=== PATIENT | female | born 1970 | race African-American/Black ===

== ENCOUNTER 2017-02-03 20:49 | Emergency (ER) | payer SELFPAY ==
[~2017-02-03] VITALS: Ht 165.1 cm; Wt 154.5 kg
[~2017-02-03 20:49] MED LIST: NORCO1 TA1 PO
[2017-02-03 21:10] LABS: HEMATOCRIT 44.6 % (37.0-47.0); HEMOGLOBIN 13.8 g/dl (12.0-16.0); IMMATURE GRANULOCYTES 0.2 % (0.0-1.0); MEAN CELL VOLUME 98.9 fL CALC (80.0-100.0); MEAN CORPUSCULAR HGB 30.6 pG CALC (26.0-32.0); MEAN CORPUSCULAR HGB CONC 30.9 g/L CALC (32.0-36.0); NEUT# 2.82 thou/uL (2.00-7.15); RED BLOOD COUNT 4.51 mill/uL (4.20-5.60); RED CELL DISTRI WIDTH 16.7 % (11.5-15.5)
[2017-02-03 21:33] LABS: ALBUMIN 3.6 g/dL (3.2-5.0); ALKALINE PHOSPHATASE 108 u/l (38-126); AMYLASE 58 u/l (30-110); ANION GAP 16 (6-22 (CALC)); BILIRUBIN, TOTAL 0.8 mg/dL (0.0-1.4); BUN 9 mg/dL (7-17); BUN/CREATININE RATIO 11 (12-20 (CALC)); CALCIUM 9.4 mg/dL (8.4-10.2); CARBON DIOXIDE 26 mmol/l (22-30); CHLORIDE 104 mmol/l (95-108); CREATININE 0.8 mg/dL (0.5-1.0); GFR > 60 ML/MIN (>=60 (CALC)); GFR FOR AFR.AMER. > 60 ML/MIN (>=60 (CALC)); GLUCOSE 124 mg/dL (65-105); LIPASE 72 u/l (23-300); POTASSIUM 3.4 mmol/l (3.5-5.1); SGOT/AST 53 u/l (14-36); SGPT/ALT 29 u/l (9-52); SODIUM 143 mmol/l (137-146)
[2017-02-03 21:45] LABS: MYOGLOBIN 29 ng/mL (0 - 62)
[2017-02-04 00:19] VITALS: BP 122/62
[2017-02-04] MEDS ORDERED: OMEPRAZOLE10 MG PO (14:34)
[2017-02-04] MEDS ORDERED: ULTRAM50 M1 PO (16:23)
[2017-02-05] MEDS ORDERED: OCEAN NASAL0.65 % (12:14)
== END 2017-02-04 00:19 | disposition home or self-care (01) | DRG 103 ==
LOC: ED 20:49
PROVIDERS: Emergency Medicine
DX: R51 Headache (principal); R50.9 Fever, unspecified; R94.31 Abnormal electrocardiogram [ECG] [EKG]

== ENCOUNTER 2017-02-04 14:24 | Emergency (ER) | payer SELFPAY ==
[~2017-02-04] VITALS: Ht 165.1 cm; Wt 175.0 kg
[2017-02-04] MEDS ORDERED: OMEPRAZOLE10 MG PO (14:34)
[2017-02-04] MEDS ORDERED: ULTRAM50 M1 PO (16:23)
[2017-02-04 17:19] VITALS: BP 131/77
[2017-02-05] MEDS ORDERED: OCEAN NASAL0.65 % (12:14)
== END 2017-02-04 17:19 | disposition home or self-care (01) | DRG 151 ==
LOC: ED 14:24
PROC: 2Y41X5Z Packing of Nasal Region using Packing Material (ICD-10-PCS; principal; 2017-02-04)
DX: R04.0 Epistaxis (principal); K21.9 Gastro-esophageal reflux disease without esophagitis

== ENCOUNTER 2017-02-05 11:46 | Emergency (ER) | payer SELFPAY ==
[~2017-02-05] VITALS: Ht 165.1 cm; Wt 150.0 kg
[~2017-02-05 11:46] MED LIST changes: +OMEPRAZOLE10 MG PO; +ULTRAM50 M1 PO
[2017-02-05] MEDS ORDERED: OCEAN NASAL0.65 % (12:14)
[2017-02-05 12:20] VITALS: BP 155/84
== END 2017-02-05 12:20 | disposition home or self-care (01) | DRG 951 ==
LOC: ED 11:46
DX: Z48.00 Encounter for change or removal of nonsurgical wound dressing (principal)

== ENCOUNTER 2017-04-18 07:46 | Observation (INO) | payer SELFPAY ==
[~2017-04-18] VITALS: Ht 165.1 cm; Wt 193.0 kg
[~2017-04-18 07:46] MED LIST changes: +OCEAN NASAL0.65 %
[2017-04-18 08:20] LABS: HEMATOCRIT 38.4 % (37.0-47.0); HEMOGLOBIN 12.3 g/dl (12.0-16.0); MEAN CELL VOLUME 97.2 fL CALC (80.0-100.0); MEAN CORPUSCULAR HGB 31.1 pG CALC (26.0-32.0); NEUT# 3.51 thou/uL (2.00-7.15); RED BLOOD COUNT 3.95 mill/uL (4.20-5.60); RED CELL DISTRI WIDTH 15.5 % (11.5-15.5)
[2017-04-18 08:46] LABS: ALBUMIN 3.6 g/dL (3.2-5.0); ALKALINE PHOSPHATASE 214 u/l (38-126); AMYLASE 46 u/l (30-110); ANION GAP 15 (6-22 (CALC)); BILIRUBIN, TOTAL 4.8 mg/dL (0.0-1.4); BUN 11 mg/dL (7-17); BUN/CREATININE RATIO 15 (12-20 (CALC)); CALCIUM 8.9 mg/dL (8.4-10.2); CARBON DIOXIDE 23 mmol/l (22-30); CHLORIDE 108 mmol/l (95-108); CREATININE 0.7 mg/dL (0.5-1.0); GFR > 60 ML/MIN (>=60 (CALC)); GFR FOR AFR.AMER. > 60 ML/MIN (>=60 (CALC)); GLUCOSE 119 mg/dL (65-105); LIPASE 39 u/l (23-300); POTASSIUM 3.4 mmol/l (3.5-5.1); SGOT/AST 170 u/l (14-36); SGPT/ALT 86 u/l (9-52); SODIUM 142 mmol/l (137-146); TOTAL PROTEIN 7.7 g/dL (6.3-8.2)
[2017-04-18 08:58] LABS: MYOGLOBIN 26 ng/mL (0 - 62)
[2017-04-18 14:26] LABS: ACT PARTIAL THROMBO TIME 26.8 SECONDS (20.0-32.5); PROTHROMBIN TIME 10.7 SECONDS (9.0-12.5)
[2017-04-18 14:30] LABS: URINE BLOOD DIPSTICK TRACE-LYSED (NEGATIVE); URINE GLUCOSE - DIPSTICK NEGATIVE (NEGATIVE); URINE KETONE TRACE mg/dL (NEGATIVE); URINE LEUK ESTERASE NEGATIVE (NEGATIVE); URINE PH 6.5 (4.5-8.0); URINE PROTEIN - DIPSTICK 30 mg/dL (NEG-TRACE)
[2017-04-18 14:32] LABS: URINE CLARITY HAZY; URINE COLOR AMBER; URINE NITRITE - DIPSTICK POSITIVE (Negative)
[2017-04-18 14:33] LABS: URINE BILIRUBIN - DIPSTICK SMALL (NEGATIVE)
[2017-04-18 14:46] LABS: URINE RBC 0-2 RBC/hpf (0-5); URINE SQUAMOUS EPITHELIAL CELL FEW EPI/hpf (0-FEW); URINE WBC 0-2 WBC/hpf (0-5)
[2017-04-18 15:40] VITALS: BP 138/75
[2017-04-18 19:40] VITALS: BP 140/80
[2017-04-18 23:35] VITALS: BP 102/67
[2017-04-19 05:10] VITALS: BP 118/79
[2017-04-19 06:15] LABS: BUN 7 mg/dL (7-17); CREATININE 0.7 mg/dL (0.5-1.0); GLUCOSE 86 mg/dL (65-105)
[2017-04-19 06:16] LABS: ALBUMIN 3.1 g/dL (3.2-5.0); ALKALINE PHOSPHATASE 189 u/l (38-126); ANION GAP 13 (6-22 (CALC)); BILIRUBIN, TOTAL 4.3 mg/dL (0.0-1.4); BUN/CREATININE RATIO 10 (12-20 (CALC)); CALCIUM 8.6 mg/dL (8.4-10.2); CARBON DIOXIDE 25 mmol/l (22-30); CHLORIDE 108 mmol/l (95-108); GFR > 60 ML/MIN (>=60 (CALC)); GFR FOR AFR.AMER. > 60 ML/MIN (>=60 (CALC)); POTASSIUM 3.4 mmol/l (3.5-5.1); SGOT/AST 153 u/l (14-36); SGPT/ALT 98 u/l (9-52); SODIUM 142 mmol/l (137-146); TOTAL PROTEIN 6.7 g/dL (6.3-8.2)
[2017-04-19 08:42] VITALS: BP 114/74
[2017-04-19] MEDS ORDERED: OMEPRAZOLE10 MG PO (14:03)
== END 2017-04-19 14:22 | disposition home or self-care (01) | DRG 392 ==
LOC: ENPENDDIS → ED 07:46 → ED-I 14:07 → ED 14:38 → MS2 14:39
PROVIDERS: Emergency Medicine; ADMIT Internal Medicine; ATTEND Internal Medicine
DX: R10.11 Right upper quadrant pain (principal); K70.10 Alcoholic hepatitis without ascites; K83.8 Other specified diseases of biliary tract; F10.20 Alcohol dependence, uncomplicated; K21.9 Gastro-esophageal reflux disease without esophagitis; Z91.19 Patient's noncompliance with other medical treatment and regimen
CPT/HCPCS: G0378; Q9967

== ENCOUNTER 2017-05-14 02:14 | Emergency (ER) | payer SELFPAY ==
[~2017-05-14] VITALS: Ht 165.1 cm; Wt 150.0 kg
[2017-05-14 03:13] LABS: HEMATOCRIT 42.6 % (37.0-47.0); HEMOGLOBIN 13.2 g/dl (12.0-16.0); IMMATURE GRANULOCYTES 0.1 % (0.0-1.0); MEAN CELL VOLUME 98.6 fL CALC (80.0-100.0); MEAN CORPUSCULAR HGB 30.6 pG CALC (26.0-32.0); NEUT# 4.17 thou/uL (2.00-7.15); RED BLOOD COUNT 4.32 mill/uL (4.20-5.60); RED CELL DISTRI WIDTH 15.9 % (11.5-15.5)
[2017-05-14 03:22] LABS: ALBUMIN 4.2 g/dL (3.2-5.0); ALKALINE PHOSPHATASE 124 u/l (38-126); ANION GAP 18 (6-22 (CALC)); BILIRUBIN, TOTAL 1.1 mg/dL (0.0-1.4); BUN 11 mg/dL (7-17); BUN/CREATININE RATIO 13 (12-20 (CALC)); CALCIUM 9.5 mg/dL (8.4-10.2); CARBON DIOXIDE 24 mmol/l (22-30); CHLORIDE 108 mmol/l (95-108); CREATININE 0.9 mg/dL (0.5-1.0); ETHYL ALCOHOL 201 mg/dl (0-30); GFR > 60 ML/MIN (>=60 (CALC)); GFR FOR AFR.AMER. > 60 ML/MIN (>=60 (CALC)); GLUCOSE 95 mg/dL (65-105); POTASSIUM 3.7 mmol/l (3.5-5.1); SGOT/AST 29 u/l (14-36); SGPT/ALT 31 u/l (9-52); SODIUM 147 mmol/l (137-146); TOTAL PROTEIN 8.3 g/dL (6.3-8.2)
[2017-05-14] MEDS ORDERED: NAPROSYN500 MG PO (03:28)
[2017-05-14] MEDS ORDERED: AMOXICILLIN500 MG PO (03:28)
[2017-05-14 07:47] VITALS: BP 132/76
== END 2017-05-14 07:47 | disposition home or self-care (01) | DRG 159 ==
LOC: ED 02:14
PROVIDERS: Emergency Medicine
DX: K04.7 Periapical abscess without sinus (principal); F10.10 Alcohol abuse, uncomplicated; Y90.7 Blood alcohol level of 200-239 mg/100 ml

== ENCOUNTER 2017-07-13 00:48 | Emergency (ER) | payer SELFPAY ==
[~2017-07-13] VITALS: Ht 165.1 cm; Wt 138.6 kg
[~2017-07-13 00:48] MED LIST changes: +AMOXICILLIN500 MG PO; +NAPROSYN500 MG PO
[2017-07-13] MEDS ORDERED: ULTRAM50 MG PO (03:45)
[2017-07-13 04:00] VITALS: BP 120/79
== END 2017-07-13 04:00 | disposition home or self-care (01) | DRG 605 ==
LOC: ED 00:48
DX: S00.83XA Contusion of other part of head, initial encounter (principal); K21.9 Gastro-esophageal reflux disease without esophagitis; S63.92XA Sprain of unspecified part of left wrist and hand, initial encounter; S13.9XXA Sprain of joints and ligaments of unspecified parts of neck, initial encounter; M25.562 Pain in left knee; M25.561 Pain in right knee; W01.0XXA Fall on same level from slipping, tripping and stumbling without subsequent striking against object, initial encounter; Y92.410 Unspecified street and highway as the place of occurrence of the external cause

== ENCOUNTER 2018-05-09 08:07 | Observation (INO) | payer SELFPAY ==
[~2018-05-09] VITALS: Ht 162.6 cm; Wt 167.0 kg
[~2018-05-09 08:07] MED LIST changes: +ULTRAM50 MG PO
--- NOTE | 2018-05-09 08:07 | NUR ---
PT ARRIVED AND IMMEDIATELY TO TX ROOM AWC WITH C/O SOB
[2018-05-09] MEDS ORDERED: EC ASPIRIN325 MG PO (08:25)
[2018-05-09 09:14] LABS: HEMATOCRIT 41.9 % (37.0-47.0); HEMOGLOBIN 13.1 g/dl (12.0-16.0); IMMATURE GRANULOCYTES 0.5 % (0.0-1.0); MEAN CELL VOLUME 96.8 fL CALC (80.0-100.0); MEAN CORPUSCULAR HGB 30.3 pG CALC (26.0-32.0); MEAN CORPUSCULAR HGB CONC 31.3 g/L CALC (32.0-36.0); NEUT# 3.9 thou/uL (2.00-7.15); RED BLOOD COUNT 4.33 mill/uL (4.20-5.60); RED CELL DISTRI WIDTH 14.6 % (11.5-15.5)
--- NOTE | 2018-05-09 09:15 | NUR ---
PT RESTING COMFORTABLY ON STRETCHER. VOICES NO COMPLAINTS. AWAITNG TEST RESULTS
[2018-05-09 09:17] LABS: ALBUMIN 3.7 g/dL (3.2-5.0); ALKALINE PHOSPHATASE 121 u/l (38-126); ANION GAP 12 (6-22 (CALC)); BILIRUBIN, TOTAL 0.7 mg/dL (0.0-1.4); BUN 13 mg/dL (7-17); BUN/CREATININE RATIO 16 (12-20 (CALC)); CARBON DIOXIDE 27 mmol/l (22-30); CHLORIDE 106 mmol/l (95-108); CREATININE 0.8 mg/dL (0.5-1.0); GFR > 60 ML/MIN (>=60 (CALC)); GFR FOR AFR.AMER. > 60 ML/MIN (>=60 (CALC)); POTASSIUM 3.9 mmol/l (3.5-5.1); SGOT/AST 44 u/l (14-36); SGPT/ALT 30 u/l (9-52); SODIUM 140 mmol/l (137-146)
[2018-05-09 09:28] LABS: MYOGLOBIN 29 ng/mL (0 - 62)
--- NOTE | 2018-05-09 10:10 | NUR ---
REPORT RECEIVED FROM NABILA MCGHEE. [facility].
--- NOTE | 2018-05-09 10:20 | NUR ---
PATIENT AMBULATES TO BATHROOM AND BACK TO ROOM WITH SETADY GAIT. REPORTS PAIN 8/10 AFTER AMBULATING.
--- NOTE | 2018-05-09 10:21 | NUR ---
AT BEDSIDE TO DISCUSS RESULTS AND PLAN OF CARE.
--- NOTE | 2018-05-09 10:50 | NUR ---
PATIENT REPORT RIGHT SIDED CHEST PAIN NON RADIATING. RATES 8/10 AT THIS TIME, VSS, UPDATED ON PLAN OF CARE. VERBAL UNDERSTANDING.
--- NOTE | 2018-05-09 10:54 | NUR ---
CALL PLACED TO [facility], SPOKE TO JEFF. NURSE NOT AVAILABLE FOR REPORT AT THIS TIME.
--- NOTE | 2018-05-09 11:32 | NUR ---
REPORT GIVEN TO NABILA ALONZO.
--- NOTE | 2018-05-09 12:05 | NUR ---
PATIENT TRANSPORTED TO [facility] VIA STRETCHER WITH TELE IN PLACE, BEDSIDE REPORT GIVEN TO NABILA ALONZO. CARE RELINQUISHED.
[2018-05-09 12:18] VITALS: BP 164/88
--- NOTE | 2018-05-09 13:05 | NUR ---
REPORT RECEIVED FROM FAYE RAMOS ARRIVED ON UNIT VIA STRETCHER @ 1208 AND TRANSRERRED TO BED, ALERT AND ORIENTED X 4, C/O HARD PAIN TO RIGHT CHEST AGGRAVATED BY DEEP BREATHING AND RIGHT ARM MOVEMENT ORIENTED TO ROOM AND CALL SUAREZ, WILL CONTINUE TO MONITOR, CALL SUAREZ IN REACH.
--- NOTE | 2018-05-09 15:17 | NUR ---
RESTING IN BED AT THIS TIME, C/O PAIN TO RIGHT CHEST, DR ALBRIGHT NOTIFIED AND GAVE ORDERS, WILL CONTINUE TO MONITOR AND ADDRESS NEEDS, CALL SUAREZ IN REACH AND SPOUSE AT BEDSIDE.
[2018-05-09 16:38] VITALS: BP 166/87
--- NOTE | 2018-05-09 19:00 | NUR ---
RECEIVED CHANGE OF SHIFT REPORT FROM NABILA ALONZO. PT ALART AND ORIENTED AND LYING IN BED WITH SPOUSE AT BEDSIDE. NO VOICED COMPLAINTS. NO APPARENT ACUTE DISTRESS NOTED AT THIS TIME. WILL CONTINUE TO MONITOR.
[2018-05-09 19:22] VITALS: BP 142/81
--- NOTE | 2018-05-09 22:24 | NUR ---
PT REPORTS UNRELIEVED RIGHT SIDED CHEST PAIN AGGREVATED WITH MOVENENT. DR ALBRIGHT MADE AWARE. RECEIVED ORDER FOR SOLUMEDEROL 125MG X 1 DOSE. WILL CONTINUE TO MONITOR.
--- NOTE | 2018-05-10 | NUR ---
RESTING QUIETLY. NO APPARENT ACUTE DISTRESS NOTED.
[2018-05-10 00:35] VITALS: BP 127/87
[2018-05-10 04:00] VITALS: BP 107/58
--- NOTE | 2018-05-10 04:00 | NUR ---
PT RESTED WELL DURING THE NIGHT. NO FURTHER VOICED CONCERNS. NO APPARENT ACUTE CHANGES NOTED IN PT'S CONDITION.
--- NOTE | 2018-05-10 07:09 | NUR ---
SHIFT CHANGE REPORT FROM FAYE LU AWAKE AND RESTING IN BED, TELE MONITOR IN PLACE, STILL C/O RIGHT CHEST PAIN BUT WITH IMPROVEMENT, CALL SUAREZ IN REACH.
[2018-05-10 07:49] VITALS: BP 154/75
[2018-05-10] MEDS ORDERED: IBUPROFEN600 MG PO (09:54)
[2018-05-10] MEDS ORDERED: FLEXERIL5 M1 PO (09:54)
--- NOTE | 2018-05-10 10:44 | NUR ---
Discharge instructions given. Patient verbalizes understanding of same. Discharged in fair condition via Wheelchair to Home with spouse. All belongings sent with pt.
== END 2018-05-10 10:40 | disposition home or self-care (01) | DRG 313 ==
LOC: ED 08:07 → ED-I 10:10 → ED 10:44 → MS2 10:45
PROVIDERS: Emergency Medicine; ADMIT Internal Medicine; ATTEND Internal Medicine
DX: R07.89 Other chest pain (principal); F10.20 Alcohol dependence, uncomplicated; K70.10 Alcoholic hepatitis without ascites
CPT/HCPCS: G0378

== ENCOUNTER 2019-01-18 09:40 | Emergency (ER) | payer SELFPAY ==
[~2019-01-18] VITALS: Ht 162.6 cm; Wt 171.0 kg
[~2019-01-18 09:40] MED LIST changes: +EC ASPIRIN325 MG PO; +FLEXERIL5 M1 PO; +IBUPROFEN600 MG PO
[2019-01-18 10:25] LABS: HEMATOCRIT 46.5 % (37.0-47.0); HEMOGLOBIN 14.3 g/dl (12.0-16.0); IMMATURE GRANULOCYTES 0.4 % (0.0-5.0); MEAN CELL VOLUME 94.1 fL CALC (80.0-100.0); MEAN CORPUSCULAR HGB 28.9 pG CALC (26.0-32.0); MEAN CORPUSCULAR HGB CONC 30.8 g/L CALC (32.0-36.0); NEUT# 3.46 thou/uL (2.00-7.15); RED BLOOD COUNT 4.94 mill/uL (4.20-5.60); RED CELL DISTRI WIDTH 15.5 % (11.5-15.5)
[2019-01-18 10:50] LABS: ALBUMIN 3.8 g/dL (3.2-5.0); ALKALINE PHOSPHATASE 138 u/l (38-126); ANION GAP 13 (6-22 (CALC)); BILIRUBIN, TOTAL 0.9 mg/dL (0.0-1.4); BUN 12 mg/dL (7-17); BUN/CREATININE RATIO 13 (12-20 (CALC)); CARBON DIOXIDE 28 mmol/l (22-30); CHLORIDE 102 mmol/l (95-108); CREATININE 0.9 mg/dL (0.5-1.0); GFR > 60 ML/MIN (>=60 (CALC)); GFR FOR AFR.AMER. > 60 ML/MIN (>=60 (CALC)); LIPASE 51 u/l (23-300); POTASSIUM 4.1 mmol/l (3.5-5.1); SGOT/AST 39 u/l (14-36); SODIUM 138 mmol/l (137-146); TOTAL PROTEIN 7.8 g/dL (6.3-8.2)
[2019-01-18 11:18] LABS: URINE BILIRUBIN - DIPSTICK NEGATIVE (NEGATIVE); URINE BLOOD DIPSTICK TRACE-INTACT (NEGATIVE); URINE COLOR YELLOW; URINE GLUCOSE - DIPSTICK NEGATIVE (NEGATIVE); URINE KETONE NEGATIVE (NEGATIVE); URINE LEUK ESTERASE TRACE (NEGATIVE); URINE NITRITE - DIPSTICK NEGATIVE (Negative); URINE PH 5.5 (4.5-8.0); URINE PROTEIN - DIPSTICK NEGATIVE (NEG-TRACE); URINE UROBILINOGEN - DIPSTICK 0.2 E.U./dL (0.2)
[2019-01-18] MEDS ORDERED: BENTYL10 MG PO (12:01)
[2019-01-18] MEDS ORDERED: TORADOL PO (12:01)
[2019-01-18 12:12] VITALS: BP 158/87
== END 2019-01-18 12:28 | disposition home or self-care (01) | DRG 554 ==
LOC: ED 09:40
PROVIDERS: Emergency Medicine
DX: M17.12 Unilateral primary osteoarthritis, left knee (principal); R10.9 Unspecified abdominal pain

== ENCOUNTER 2019-03-22 09:37 | Emergency (ER) | payer SELFPAY ==
[~2019-03-22] VITALS: Ht 162.6 cm; Wt 181.0 kg
[~2019-03-22 09:37] MED LIST changes: +BENTYL10 MG PO; +TORADOL PO
[2019-03-22 10:52] LABS: HEMATOCRIT 46.3 % (37.0-47.0); IMMATURE GRANULOCYTES 0.5 % (0.0-5.0); MEAN CELL VOLUME 96.7 fL CALC (80.0-100.0); MEAN CORPUSCULAR HGB 29.2 pG CALC (26.0-32.0); MEAN CORPUSCULAR HGB CONC 30.2 g/L CALC (32.0-36.0); NEUT# 4.13 thou/uL (2.00-7.15); RED BLOOD COUNT 4.79 mill/uL (4.20-5.60); RED CELL DISTRI WIDTH 15.8 % (11.5-15.5)
[2019-03-22 11:42] LABS: URINE BILIRUBIN - DIPSTICK NEGATIVE (NEGATIVE); URINE BLOOD DIPSTICK NEGATIVE (NEGATIVE); URINE COLOR YELLOW; URINE GLUCOSE - DIPSTICK NEGATIVE (NEGATIVE); URINE KETONE NEGATIVE (NEGATIVE); URINE LEUK ESTERASE TRACE (NEGATIVE); URINE PROTEIN - DIPSTICK NEGATIVE (NEG-TRACE); URINE UROBILINOGEN - DIPSTICK 0.2 E.U./dL (0.2)
[2019-03-22 12:03] LABS: URINE NITRITE - DIPSTICK POSITIVE (Negative)
[2019-03-22 12:04] LABS: URINE BACTERIA RARE hpf
[2019-03-22 12:15] LABS: ALBUMIN 3.8 g/dL (3.2-5.0); ALKALINE PHOSPHATASE 130 u/l (38-126); ANION GAP 11 (6-22 (CALC)); BILIRUBIN, TOTAL 0.6 mg/dL (0.0-1.4); BUN 11 mg/dL (7-17); BUN/CREATININE RATIO 13 (12-20 (CALC)); CARBON DIOXIDE 30 mmol/l (22-30); CHLORIDE 103 mmol/l (95-108); CREATININE 0.8 mg/dL (0.5-1.0); GFR > 60 ML/MIN (>=60 (CALC)); GFR FOR AFR.AMER. > 60 ML/MIN (>=60 (CALC)); LIPASE 68 u/l (23-300); SGOT/AST 40 u/l (14-36); SODIUM 140 mmol/l (137-146); TOTAL PROTEIN 7.6 g/dL (6.3-8.2)
[2019-03-22] MEDS ORDERED: CARAFATE1 GM PO (12:26)
[2019-03-22] MEDS ORDERED: KEFLEX500 M1 PO (12:26)
[2019-03-22 12:31] VITALS: BP 162/98
== END 2019-03-22 12:41 | disposition home or self-care (01) | DRG 690 ==
LOC: ED 09:37
PROVIDERS: Emergency Medicine
DX: N39.0 Urinary tract infection, site not specified (principal); B96.20 Unspecified Escherichia coli [E. coli] as the cause of diseases classified elsewhere; K29.70 Gastritis, unspecified, without bleeding; R10.13 Epigastric pain; R10.12 Left upper quadrant pain; R10.11 Right upper quadrant pain; R11.2 Nausea with vomiting, unspecified; R19.7 Diarrhea, unspecified
CPT/HCPCS: S0164

== ENCOUNTER 2019-05-18 22:13 | Emergency (ER) | payer SELFPAY ==
[~2019-05-18] VITALS: Ht 162.6 cm; Wt 178.9 kg
[~2019-05-18 22:13] MED LIST changes: +CARAFATE1 GM PO; +KEFLEX500 M1 PO
[2019-05-18] MEDS ORDERED: TORADOL PO (22:45)
[2019-05-18] MEDS ORDERED: DICYCLOMINE10 MG PO (22:45)
[2019-05-18 22:57] LABS: HEMATOCRIT 48.7 % (37.0-47.0); HEMOGLOBIN 14.6 g/dl (12.0-16.0); IMMATURE GRANULOCYTES 0.4 % (0.0-5.0); MEAN CELL VOLUME 96.4 fL CALC (80.0-100.0); MEAN CORPUSCULAR HGB 28.9 pG CALC (26.0-32.0); NEUT# 3.94 thou/uL (2.00-7.15); RED BLOOD COUNT 5.05 mill/uL (4.20-5.60); RED CELL DISTRI WIDTH 16.5 % (11.5-15.5)
[2019-05-18 23:01] LABS: URINE BILIRUBIN - DIPSTICK SMALL (NEGATIVE); URINE BLOOD DIPSTICK NEGATIVE (NEGATIVE); URINE COLOR DK. YELLOW; URINE GLUCOSE - DIPSTICK NEGATIVE (NEGATIVE); URINE KETONE NEGATIVE (NEGATIVE); URINE LEUK ESTERASE TRACE (NEGATIVE); URINE NITRITE - DIPSTICK NEGATIVE (Negative); URINE PH 5.5 (4.5-8.0); URINE PROTEIN - DIPSTICK TRACE mg/dL (NEG-TRACE); URINE SPECIFIC GRAVITY >=1.030
[2019-05-18 23:13] LABS: ALBUMIN 3.9 g/dL (3.2-5.0); ALKALINE PHOSPHATASE 118 u/l (38-126); ANION GAP 12 (6-22 (CALC)); BILIRUBIN, TOTAL 0.8 mg/dL (0.0-1.4); BUN 9 mg/dL (7-17); BUN/CREATININE RATIO 10 (12-20 (CALC)); CARBON DIOXIDE 29 mmol/l (22-30); CHLORIDE 102 mmol/l (95-108); CREATININE 0.9 mg/dL (0.5-1.0); GFR > 60 ML/MIN (>=60 (CALC)); GFR FOR AFR.AMER. > 60 ML/MIN (>=60 (CALC)); SGOT/AST 49 u/l (14-36); SODIUM 140 mmol/l (137-146); TOTAL PROTEIN 8.3 g/dL (6.3-8.2)
[2019-05-18 23:26] LABS: MYOGLOBIN 32 ng/mL (0 - 62)
[2019-05-19 01:15] VITALS: BP 142/79
[2019-05-19] MEDS ORDERED: ANTIVERT PO (01:19)
[2019-05-19] MEDS ORDERED: ONDANSETRON4 MG PO (01:19)
[2019-05-19] MEDS ORDERED: NAPROXEN500 MG PO (01:19)
== END 2019-05-19 01:27 | disposition home or self-care (01) | DRG 149 ==
LOC: ED 22:13
PROVIDERS: Emergency Medicine
DX: R42 Dizziness and giddiness (principal); R10.9 Unspecified abdominal pain; I10 Essential (primary) hypertension; E66.01 Morbid (severe) obesity due to excess calories

== ENCOUNTER 2019-06-23 02:52 | Inpatient (IN) | payer MEDICAID ==
[~2019-06-23] VITALS: Ht 162.6 cm; Wt 179.6 kg
[~2019-06-23 02:52] MED LIST changes: +ANTIVERT PO; +DICYCLOMINE10 MG PO; +NAPROXEN500 MG PO; +ONDANSETRON4 MG PO
[2019-06-23 03:33] LABS: HEMATOCRIT 48.3 % (37.0-47.0); HEMOGLOBIN 14.4 g/dl (12.0-16.0); IMMATURE GRANULOCYTES 0.8 % (0.0-5.0); MEAN CORPUSCULAR HGB 28.9 pG CALC (26.0-32.0); MEAN CORPUSCULAR HGB CONC 29.8 g/L CALC (32.0-36.0); NEUT# 3.48 thou/uL (2.00-7.15); RED BLOOD COUNT 4.98 mill/uL (4.20-5.60); RED CELL DISTRI WIDTH 17.4 % (11.5-15.5)
[2019-06-23 03:49] LABS: ALBUMIN 3.9 g/dL (3.2-5.0); ALKALINE PHOSPHATASE 138 u/l (38-126); ANION GAP 14 (6-22 (CALC)); BILIRUBIN, TOTAL 0.6 mg/dL (0.0-1.4); BUN 7 mg/dL (7-17); BUN/CREATININE RATIO 7 (12-20 (CALC)); CARBON DIOXIDE 28 mmol/l (22-30); CHLORIDE 104 mmol/l (95-108); CREATININE 0.9 mg/dL (0.5-1.0); GFR > 60 ML/MIN (>=60 (CALC)); GFR FOR AFR.AMER. > 60 ML/MIN (>=60 (CALC)); POTASSIUM 3.8 mmol/l (3.5-5.1); SGOT/AST 36 u/l (14-36); SODIUM 142 mmol/l (137-146); TOTAL PROTEIN 8.3 g/dL (6.3-8.2)
[2019-06-23 03:55] LABS: D-DIMER 1.72 mg/L (0.19-0.60); PROTHROMBIN TIME 10.7 SECONDS (9.0-12.5)
[2019-06-23 04:01] LABS: MYOGLOBIN 36 ng/mL (0 - 62)
[2019-06-23 05:18] LABS: URINE BILIRUBIN - DIPSTICK NEGATIVE (NEGATIVE); URINE BLOOD DIPSTICK NEGATIVE (NEGATIVE); URINE COLOR YELLOW; URINE GLUCOSE - DIPSTICK NEGATIVE (NEGATIVE); URINE KETONE NEGATIVE (NEGATIVE); URINE NITRITE - DIPSTICK NEGATIVE (Negative); URINE PH 5.5 (4.5-8.0); URINE PROTEIN - DIPSTICK NEGATIVE (NEG-TRACE); URINE SPECIFIC GRAVITY <=1.005; URINE UROBILINOGEN - DIPSTICK 0.2 E.U./dL (0.2)
[2019-06-23 05:19] LABS: URINE LEUK ESTERASE SMALL (NEGATIVE)
[2019-06-23 05:40] LABS: URINE BACTERIA FEW hpf; URINE SQUAMOUS EPITHELIAL CELL FEW EPI/hpf (0-FEW); URINE TRICHOMONAS FEW hpf
[2019-06-23] MEDS ORDERED: ASPIRIN325 MG PO (06:15)
[2019-06-23 06:47] VITALS: BP 145/80
[2019-06-23 08:08] VITALS: BP 141/73
[2019-06-23 14:30] VITALS: BP 159/89
[2019-06-23 19:20] VITALS: BP 144/57
[2019-06-24 04:00] VITALS: BP 136/69
[2019-06-24 08:00] VITALS: BP 175/97
[2019-06-24 16:13] VITALS: BP 170/97
[2019-06-24 19:25] VITALS: BP 130/78
[2019-06-25 04:10] VITALS: BP 141/83
[2019-06-25 07:24] VITALS: BP 128/63
[2019-06-25 15:42] VITALS: BP 129/79
[2019-06-25 18:55] VITALS: BP 140/91
[2019-06-26 04:32] VITALS: BP 130/81
[2019-06-26 07:17] VITALS: BP 156/90
[2019-06-26 11:37] LABS: IMMATURE GRANULOCYTES 0.5 % (0.0-5.0); MEAN CELL VOLUME 97.6 fL CALC (80.0-100.0); MEAN CORPUSCULAR HGB 29.1 pG CALC (26.0-32.0); MEAN CORPUSCULAR HGB CONC 29.8 g/L CALC (32.0-36.0); NEUT# 6.12 thou/uL (2.00-7.15); RED BLOOD COUNT 4.23 mill/uL (4.20-5.60); RED CELL DISTRI WIDTH 17.1 % (11.5-15.5)
[2019-06-26 11:42] LABS: HEMATOCRIT 41.3 % (37.0-47.0); HEMOGLOBIN 12.3 g/dl (12.0-16.0)
[2019-06-26 11:58] LABS: ANION GAP 9 (6-22 (CALC)); BUN 17 mg/dL (7-17); BUN/CREATININE RATIO 21 (12-20 (CALC)); CARBON DIOXIDE 33 mmol/l (22-30); CHLORIDE 101 mmol/l (95-108); CREATININE 0.8 mg/dL (0.5-1.0); GFR > 60 ML/MIN (>=60 (CALC)); GFR FOR AFR.AMER. > 60 ML/MIN (>=60 (CALC)); POTASSIUM 3.6 mmol/l (3.5-5.1); SODIUM 139 mmol/l (137-146)
[2019-06-26] MEDS ORDERED: AMLODIPINE BESYL5 MG PO (16:21)
[2019-06-26] MEDS ORDERED: NYSTATIN100000 UN1 TOP (16:22)
[2019-06-26] MEDS ORDERED: DOXYCYCLINE100 MG PO (16:32)
[2019-06-26] MEDS ORDERED: CARAFATE1 GM PO (16:33)
[2019-06-26 16:36] VITALS: BP 134/80
== END 2019-06-26 19:04 | disposition home or self-care (01) | DRG 193 ==
LOC: ED 02:52 → ED-I 03:06 → ED 03:06 → ED-I 05:50 → ED 06:18 → MS2 06:19
PROVIDERS: Family Medicine; Nurse Practitioner Family; ADMIT Internal Medicine; ATTEND Internal Medicine
DX: J18.9 Pneumonia, unspecified organism (principal); J96.22 Acute and chronic respiratory failure with hypercapnia; J96.21 Acute and chronic respiratory failure with hypoxia; Z68.44 Body mass index [BMI] 60.0-69.9, adult; E66.2 Morbid (severe) obesity with alveolar hypoventilation; I10 Essential (primary) hypertension; B37.2 Candidiasis of skin and nail; R07.89 Other chest pain
CPT/HCPCS: J1650

== ENCOUNTER 2019-07-13 12:28 | Inpatient (IN) | payer MEDICAID ==
[~2019-07-13] VITALS: Ht 162.6 cm; Wt 177.0 kg
[~2019-07-13 12:28] MED LIST changes: +AMLODIPINE BESYL5 MG PO; +ASPIRIN325 MG PO; +DOXYCYCLINE100 MG PO; +NYSTATIN100000 UN1 TOP
--- NOTE | 2019-07-13 12:36 | NUR ---
WHEELCHAIR TO ER ROOM 6, TO BED
[2019-07-13 13:15] LABS: IMMATURE GRANULOCYTES 0.4 % (0.0-5.0); MEAN CELL VOLUME 94.9 fL CALC (80.0-100.0); MEAN CORPUSCULAR HGB 28.8 pG CALC (26.0-32.0); MEAN CORPUSCULAR HGB CONC 30.3 g/L CALC (32.0-36.0); NEUT# 3.8 thou/uL (2.00-7.15); RED BLOOD COUNT 5.11 mill/uL (4.20-5.60); RED CELL DISTRI WIDTH 17.2 % (11.5-15.5)
--- NOTE | 2019-07-13 13:15 | NUR ---
PT WAS AT [facility] OFFICE FOR ESTABLISHMENT, SATS IN THE 70'S AND WITH REST ONLY IMPROVED TO THE 80'S SO SENT OT ER FOR EVAL, PT IS ALERT AND ORIENTED, MORBIDDLY OBESE DENIES ANY COMPLAITNS OF PAIN, CALL SUAREZ WITHIN REACH
[2019-07-13 13:16] LABS: HEMATOCRIT 48.5 % (37.0-47.0); HEMOGLOBIN 14.7 g/dl (12.0-16.0)
[2019-07-13 13:33] LABS: ALBUMIN 3.6 g/dL (3.2-5.0); ALKALINE PHOSPHATASE 123 u/l (38-126); ANION GAP 13 (6-22 (CALC)); BUN 9 mg/dL (7-17); BUN/CREATININE RATIO 11 (12-20 (CALC)); CARBON DIOXIDE 28 mmol/l (22-30); CHLORIDE 105 mmol/l (95-108); CREATININE 0.8 mg/dL (0.5-1.0); GFR > 60 ML/MIN (>=60 (CALC)); GFR FOR AFR.AMER. > 60 ML/MIN (>=60 (CALC)); POTASSIUM 4.3 mmol/l (3.5-5.1); SGOT/AST 53 u/l (14-36); SODIUM 141 mmol/l (137-146); TOTAL PROTEIN 7.6 g/dL (6.3-8.2)
[2019-07-13 13:38] LABS: BILIRUBIN, TOTAL 0.9 mg/dL (0.0-1.4)
--- NOTE | 2019-07-13 14:30 | NUR ---
PT RESTING ON STRETCHER; NO S/S OF DISTRESS, AWARE OF PENDING CT SCAN, VISITOR REMAINS AT BEDSIDE
--- NOTE | 2019-07-13 15:21 | NUR ---
PT TOLERATED CT W/O INCIDENT, BACK IN ROOM AND RESTING ON STRETCHER, AWARE OF AWAITING RESULTS, OFFERS NO OTHER COMPLAINTS, VISITOR REMAINS AT BEDSIDE, WILL CONTINUE TO MONITOR.
--- NOTE | 2019-07-13 15:40 | NUR ---
PT EDUCATED REGARDING HEPARIN GTT INCLUDING REASON FOR ADMINISTRATION, EXPECTATIONS AND POTENTIAL SIDE EFFECTS, ALL QUESTIONS ANSWERED.
[2019-07-13] MEDS ORDERED: MECLIZINE25 MG PO (16:29)
[2019-07-13] MEDS ORDERED: NAPROXEN500 MG PO (16:29)
[2019-07-13] MEDS ORDERED: ONDANSETRON4 MG PO (16:29)
--- NOTE | 2019-07-13 17:12 | NUR ---
REPORT CALLED TO ЮЛИЯ DAHL IN ICU.
--- NOTE | 2019-07-13 17:13 | NUR ---
PT UP TO BSC. WITH SBA
--- NOTE | 2019-07-13 17:20 | NUR ---
PT CONTINENT OF MOFDDERATE SOFT BROWN BM, SELF MARYANA CARE PROVIDED AND PT BACK TO BED WITH SBA.
--- NOTE | 2019-07-13 17:35 | NUR ---
PT TRANSPORTED TO ICU BED 7 VIA STRECTHER, ALL BELONGINGS SENT WITH PT INCLUDING HOME MEDICATIONS, PT ON MONITOR FOR TRANSFER, ACCEPTING NURSES AT BEDSIDE UPON ARRIVAL.
[2019-07-13 17:45] VITALS: BP 184/83
--- NOTE | 2019-07-13 17:45 | NUR ---
female pt received to ICU bed 7 via stretcher accompanied by Santiago Breaux RN in stable condition; ambulatory to bed with weak slow gait; admission assessment completed at this time; pt alert and oriented; c/c of sob x4 days and chest pain x 2 days; pt semnt per MD office; resp even and unlabored; lungs diminished throughout; skin color wnl; o2 per nc at 2l; hr reg; strong pulses; no edema noted; sr on monitor; abd soft/ obese with bs present; bm noted while in ER; admits to voiding without complication; no urine to inspect at this time; bsc; #2o patent to lac with heparin gtt infusing at 2250 units/hr; no redness or edema noted at site; plan of care/ dx/ labs explained; call light within reach; will continue to monitor
[2019-07-13 18:00] VITALS: BP 156/74
[2019-07-13 18:15] VITALS: BP 176/90
[2019-07-13 18:30] VITALS: BP 174/73
--- NOTE | 2019-07-13 18:31 | NUR ---
awake in bed; offers no complaints; no distress noted; sr on monitor; heparin gtt continues at 2250 units/hr; call light within reach
[2019-07-13 19:15] VITALS: BP 142/79
--- NOTE | 2019-07-13 19:15 | NUR ---
awake. denies resp diff or chest pain. o2 cont per nc. hospital monitor shows sinus rhythm. #20 lac heparin gtt infusing @ 45cchr. po fluids taken well. up to bsc. vera well. fall precautions cont. @ bedside.
[2019-07-13 20:00] VITALS: BP 162/100
--- NOTE | 2019-07-13 21:00 | NUR ---
@ bedside in recliner.
--- NOTE | 2019-07-13 22:00 | NUR ---
lab here. blood drawn.
[2019-07-14] VITALS (15 sets, daily range): BP systolic 135–163; BP diastolic 60–96
--- NOTE | 2019-07-14 00:01 | NUR ---
eyes closed. no distress. shelter monitor shows sinus rhythm pvcs hr 84.
--- NOTE | 2019-07-14 02:00 | NUR ---
resting quietly. resps even & unlabored. no apparent distress.
--- NOTE | 2019-07-14 04:50 | NUR ---
lab here. blood drawn.
[2019-07-14 05:21] LABS: HEMATOCRIT 43.5 % (37.0-47.0); HEMOGLOBIN 13.2 g/dl (12.0-16.0); MEAN CELL VOLUME 95.4 fL CALC (80.0-100.0); MEAN CORPUSCULAR HGB 28.9 pG CALC (26.0-32.0); MEAN CORPUSCULAR HGB CONC 30.3 g/L CALC (32.0-36.0); RED BLOOD COUNT 4.56 mill/uL (4.20-5.60); RED CELL DISTRI WIDTH 17.5 % (11.5-15.5)
[2019-07-14 05:43] LABS: ANION GAP 12 (6-22 (CALC)); BUN 10 mg/dL (7-17); BUN/CREATININE RATIO 11 (12-20 (CALC)); CARBON DIOXIDE 29 mmol/l (22-30); CHLORIDE 103 mmol/l (95-108); CREATININE 0.9 mg/dL (0.5-1.0); GFR > 60 ML/MIN (>=60 (CALC)); GFR FOR AFR.AMER. > 60 ML/MIN (>=60 (CALC)); POTASSIUM 3.7 mmol/l (3.5-5.1); SODIUM 140 mmol/l (137-146)
--- NOTE | 2019-07-14 06:00 | NUR ---
eyes closed. no distress. asleep in recliner.
--- NOTE | 2019-07-14 07:15 | NUR ---
pt awake in bed; no apparent distress noted; pt offers no complaints; assessment completed at this time; pt alert and oriented; denies pain; no n/v noted; resp even and unlabored; lungs diminished throughout; skin color wnl; o2 per nc at 2L; no cough noted; hr reg; strong pulses; no edema noted; sr on monitor; abd soft with bs present; no bm noted per policy writer sales; pt admits to voiding without pain or burning; no urine to inspect at this time; bsc; #20 patent to lac with heparin gtt infusing at 2250 units/hr; no redness or edema noted at site; plan of care/ am meds/labs/ heparin gtt explained; call light within reach; will continue to monitor
--- NOTE | 2019-07-14 08:09 | NUR ---
awake in chair eating breakfast; no apparent; distress noted; pt offers no complaints; sr on monitor; iv intact with heparin gtt infusing as per protocol; call light within reach; will continue to monitor
--- NOTE | 2019-07-14 10:10 | NUR ---
pt awake up to chair; no apparent distress noted; pt offers no complaints; iv intact and patent; heparin gtt infusing 2250 units/hr; call light within reach; will continue to monitor
--- NOTE | 2019-07-14 10:30 | NUR ---
Dr Gatica present at bedside to assess pt and discuss plan of care
--- NOTE | 2019-07-14 11:21 | NUR ---
pt updated on plan of care; heparin gtt discontinued; eliquis explained and administered; pt offers no complaints; remains up to chair; will continue to monitor
--- NOTE | 2019-07-14 12:10 | NUR ---
pt awake in bed; visitor (spouse) present at bedside; basin set up for am care; pt offers no complaints; iv saline locked and intact; sr on monitor; deny needs; call light within reach; will continue to monitor
--- NOTE | 2019-07-14 14:20 | NUR ---
pt resting in bed with eyes closed; no distress noted; resp even and unlabored; spouse present at bedside; sr on monitor; o2 per nc; call light within reach; will continue to monitor
--- NOTE | 2019-07-14 16:15 | NUR ---
resting inter; no apparent distress noted; o2 per nc; offers no complaints; s/o at bedside; call light within reach; will continue to monitor
--- NOTE | 2019-07-14 17:57 | NUR ---
pt awake in bed; no apparent distress noted; spouse at bedside; iv intact and saline locked; sr/pvc on monitor; kitchen notified for alternative dinner; pt deny any additional needs; call light within reach
--- NOTE | 2019-07-14 19:20 | NUR ---
awake. c/o h/a. medicated as ordered. child monitor shows sinus rhythm. #20 lac saline lock. po fluids taken well. voids per bsc. fall precautions cont. in recliner @ bedside.
--- NOTE | 2019-07-14 21:00 | NUR ---
up to bsc. vera well. no resp dif.
[2019-07-15] VITALS (13 sets, daily range): BP systolic 126–173; BP diastolic 79–96
--- NOTE | 2019-07-15 00:01 | NUR ---
eyes closed. no distress. o2 cont.
--- NOTE | 2019-07-15 02:00 | NUR ---
resting quietly. resps even & unlabored. no apparent distress.
--- NOTE | 2019-07-15 03:00 | NUR ---
up to bsc. vera well.
--- NOTE | 2019-07-15 03:45 | NUR ---
lab here. blood drawn.
--- NOTE | 2019-07-15 04:00 | NUR ---
eyes closed. no distress. tool and die technician shows sinus rhythm pvcs hr 80. remains in recliner @ bedside.
[2019-07-15 04:15] LABS: HEMATOCRIT 44.4 % (37.0-47.0); HEMOGLOBIN 13.2 g/dl (12.0-16.0); MEAN CELL VOLUME 96.9 fL CALC (80.0-100.0); MEAN CORPUSCULAR HGB 28.8 pG CALC (26.0-32.0); MEAN CORPUSCULAR HGB CONC 29.7 g/L CALC (32.0-36.0); RED BLOOD COUNT 4.58 mill/uL (4.20-5.60); RED CELL DISTRI WIDTH 17.1 % (11.5-15.5)
--- NOTE | 2019-07-15 04:30 | NUR ---
up to bsc. vera well.
[2019-07-15 04:37] LABS: ANION GAP 12 (6-22 (CALC)); BUN 8 mg/dL (7-17); BUN/CREATININE RATIO 10 (12-20 (CALC)); CARBON DIOXIDE 28 mmol/l (22-30); CHLORIDE 102 mmol/l (95-108); CREATININE 0.8 mg/dL (0.5-1.0); GFR > 60 ML/MIN (>=60 (CALC)); GFR FOR AFR.AMER. > 60 ML/MIN (>=60 (CALC)); POTASSIUM 4.1 mmol/l (3.5-5.1); SODIUM 138 mmol/l (137-146)
--- NOTE | 2019-07-15 05:58 | NUR ---
eyes closed. no distress. remains @ bedside.
--- NOTE | 2019-07-15 06:55 | NUR ---
RECIEVED REPORT FROM LAUREEN DE LA CRUZ. ASSUMED PT CARE.
--- NOTE | 2019-07-15 08:00 | NUR ---
PT RESTING IN BED, AT BEDSIDE. PT A&OX3, ABLE TO MAKE NEEDS KNOWN, PT NOTED WITH BUMP TO L CHEEK, PT STATED IT ITCHES A LITTLE.. ASSESSMENT COMPLETED. PT REMAINS ON 02@2LPM VIA NC. RESPIRATIONS EVEN/UNLABORED, LS DIMINISHED THROUGHOUT. CALL LIGHT IN REACH. WILL MONITOR.
--- NOTE | 2019-07-15 09:00 | NUR ---
DR. FERRARA AT BEDSIDE FOR ASSESSMENT AND TO DISCUSS PLAN OF CARE, NEW ORDERS RECIEVED. CALL LIGHT IN REACH. REMAINS AT BEDSIDE . WILL MONITOR.
--- NOTE | 2019-07-15 10:13 | NUR ---
PT RESTING IN BED, TALKING WITH FAMILY AT BEDSIDE. OFFERS NO COMPLAINTS AT THIS TIME.
--- NOTE | 2019-07-15 12:00 | NUR ---
PT SITTING UP IN BED, TALKING ON PHONE, NO SOB NOTED AT THIS TIME. PT OFFERS NO COMPLAINTS AT THIS TIME. CALL LIGHT IN REACH. WILL MONITOR.
--- NOTE | 2019-07-15 13:30 | NUR ---
PT ASKING FOR COUGH SYRUP AND STATED HER FACE IS ITCHING, MEDICATED ORDERED. REMAINS AT BEDSIDE. PT REMAINS ON PHONE, LAUGHING AND TALKING. CALL LIGHT IN REACH. WILL MONITOR.
--- NOTE | 2019-07-15 14:29 | NUR ---
PT RESTING IN BED WITH EYES CLOSED, RESPIRATIONS EVEN/UNLABORED. CALL LIGHT IN REACH. WILL MONITOR.
--- NOTE | 2019-07-15 15:45 | NUR ---
PT ASSISTED TO BSC, THEN BACK TO BED. PT TALKING ON PHONE.
--- NOTE | 2019-07-15 16:31 | NUR ---
PT RESTING IN BED, OFFERS NO COMPLAINTS AT THIS TIME. CALL LIGHT IN REACH. WILL MONITOR.
--- NOTE | 2019-07-15 18:06 | NUR ---
PT RESTING IN BED, TV ON. REMAINS AT BEDSIDE. PT OFFERS NO COMPLAINTS AT THIS TIME. RESPIRATIONS EVEN/UNLABORED. CALL LIGHT IN REACH. WILL MONITOR.
--- NOTE | 2019-07-15 19:20 | NUR ---
REPOT GIVEN BY CARL DAHL. PATIENT ALERT AND ORIENTED. AWAKE WATCHING TV WITH PRESENT. RESP EVEN AND UNLABORED, 2L O2 VIA NC. NO S/S OF DISTRESS NOTED. FALL PRECATUIONS IN PLACE. PATIENT INFORMED TO CALL WITH ANY QUESTIONS OR CONCERNS. ASSESMENT COMPLETE. PLAN OF CARE DISCUSSED.
--- NOTE | 2019-07-15 22:18 | NUR ---
PATIENT AWAKE AND WATCHING TV. RESP EVEN AND UNLABORED. NO S/S OF DISTRESS NOTED.
[2019-07-16] VITALS: BP 166/84
--- NOTE | 2019-07-16 00:48 | NUR ---
PATIENT AWAKE AND EATIING PINAPPLES IN BED WHILE WATCHING TV. RESP EVEN AND UNALBORED. NO S/S OG DISTRESS NOTED.
[2019-07-16 02:00] VITALS: BP 141/87
[2019-07-16 04:00] VITALS: BP 143/86
[2019-07-16 06:08] VITALS: BP 149/89
[2019-07-16 07:25] VITALS: BP 151/90
--- NOTE | 2019-07-16 07:25 | NUR ---
PT RESTING IN BED, NO SIGNS OF DISTRESS NOTED,RESP EVEN AND UNLABORED. PT ALERT AND ORIENTED X3, DISCUSSED POC, PT DENIES ANY NEEDS OR COMPLAINTS AT THIS TIME. ASSESSMENT COMPLETED, CALL LIGHT IN REACH,CONTINUE TO MONITOR.
--- NOTE | 2019-07-16 08:20 | NUR ---
PT RESTING IN BED WATCHING TV, S/O AT BEDSIDE. PT ATE BREAKFAST. PT VOICES NO NEEDS OR COMPLAINTS AT THIS TIME. CALL LIGHT IN REACH,CONTINUE TO MONITOR.
--- NOTE | 2019-07-16 10:17 | NUR ---
PT ASSISTED TO BSC, THEN TO RECLINER AT BEDSIDE, PT HAD A BM, VOICES NO NEEDS OR COMPLAINTS AT THIS TIME. S/O AT BEDSIDE, LINENS CHANGED. CALL LIGHT IN REACH,CONTINUE TO MONITOR.
[2019-07-16] MEDS ORDERED: HYDROCHLOROT25 MG PO (11:25)
[2019-07-16] MEDS ORDERED: ELIQUIS2.5 MG PO (11:26)
[2019-07-16 11:30] VITALS: BP 143/94
--- NOTE | 2019-07-16 12:55 | NUR ---
Discharge instructions given. Patient verbalizes understanding of same. Discharged in stable condition via Wheelchair to Home with spouse. All belongings sent with pt.
== END 2019-07-16 13:00 | disposition home or self-care (01) | DRG 175 ==
LOC: ED 12:28 → ED-I 15:40 → ED 16:03 → ICU 16:04
PROVIDERS: ADMIT Internal Medicine; ATTEND Internal Medicine
DX: I26.99 Other pulmonary embolism without acute cor pulmonale (principal); J96.21 Acute and chronic respiratory failure with hypoxia; Z68.44 Body mass index [BMI] 60.0-69.9, adult; E66.2 Morbid (severe) obesity with alveolar hypoventilation; I10 Essential (primary) hypertension; G47.33 Obstructive sleep apnea (adult) (pediatric); Z99.81 Dependence on supplemental oxygen; Z87.01 Personal history of pneumonia (recurrent)
CPT/HCPCS: J1644; Q9967

== ENCOUNTER 2019-07-18 10:28 | Emergency (ER) | payer MEDICAID ==
[~2019-07-18] VITALS: Ht 162.6 cm; Wt 177.0 kg
[~2019-07-18 10:28] MED LIST changes: +ELIQUIS2.5 MG PO; +HYDROCHLOROT25 MG PO; +MECLIZINE25 MG PO
[2019-07-18 11:12] LABS: HEMOGLOBIN 14.2 g/dl (12.0-16.0); IMMATURE GRANULOCYTES 0.3 % (0.0-5.0); MEAN CELL VOLUME 95.9 fL CALC (80.0-100.0); MEAN CORPUSCULAR HGB CONC 30.2 g/L CALC (32.0-36.0); NEUT# 4.33 thou/uL (2.00-7.15); RED BLOOD COUNT 4.9 mill/uL (4.20-5.60); RED CELL DISTRI WIDTH 16.9 % (11.5-15.5)
[2019-07-18 12:00] LABS: ALBUMIN 3.6 g/dL (3.2-5.0); ALKALINE PHOSPHATASE 104 u/l (38-126); ANION GAP 12 (6-22 (CALC)); BILIRUBIN, TOTAL 0.9 mg/dL (0.0-1.4); BUN 11 mg/dL (7-17); BUN/CREATININE RATIO 12 (12-20 (CALC)); CARBON DIOXIDE 32 mmol/l (22-30); CHLORIDE 100 mmol/l (95-108); CREATININE 0.9 mg/dL (0.5-1.0); GFR > 60 ML/MIN (>=60 (CALC)); GFR FOR AFR.AMER. > 60 ML/MIN (>=60 (CALC)); POTASSIUM 4.3 mmol/l (3.5-5.1); SGOT/AST 38 u/l (14-36); SODIUM 139 mmol/l (137-146); TOTAL PROTEIN 7.3 g/dL (6.3-8.2)
[2019-07-18 12:11] LABS: MYOGLOBIN 36 ng/mL (0 - 62)
[2019-07-18] MEDS ORDERED: NAPROSYN250 MG PO (13:33)
[2019-07-18 14:08] VITALS: BP 118/58
== END 2019-07-18 14:27 | disposition home or self-care (01) ==
LOC: ED 10:28
PROVIDERS: Emergency Medicine
DX: R07.89 Other chest pain (principal); I10 Essential (primary) hypertension; Z86.711 Personal history of pulmonary embolism
CPT/HCPCS: Q9967

== ENCOUNTER 2019-08-23 10:31 | Observation (INO) | payer MEDICAID ==
[~2019-08-23] VITALS: Ht 162.6 cm; Wt 177.0 kg
[~2019-08-23 10:31] MED LIST changes: +NAPROSYN250 MG PO
--- NOTE | 2019-08-23 10:32 | NUR ---
to room 10 via wheelchair.
--- NOTE | 2019-08-23 10:49 | NUR ---
Ambulated to bathroom with steady gait using cane.
--- NOTE | 2019-08-23 11:10 | NUR ---
PT RESTING ON STRETCHER, NO CHEST PAIN AT THIS TIME, IS LAUGHING AND TALKING WITH FAMILY. VSS STABLE
[2019-08-23 11:59] LABS: HEMATOCRIT 46.3 % (37.0-47.0); HEMOGLOBIN 13.9 g/dl (12.0-16.0); IMMATURE GRANULOCYTES 0.5 % (0.0-5.0); MEAN CELL VOLUME 96.7 fL CALC (80.0-100.0); NEUT# 4.75 thou/uL (2.00-7.15); RED BLOOD COUNT 4.79 mill/uL (4.20-5.60); RED CELL DISTRI WIDTH 16.9 % (11.5-15.5)
--- NOTE | 2019-08-23 12:06 | NUR ---
REMAINS CHEST PAIN FREE, WATCHING TV AT THIS TIME, SIDE RAILS UP AND CALL LIGHT WITHIN REACH.
[2019-08-23 12:17] LABS: ANION GAP 12 (6-22 (CALC)); BUN 9 mg/dL (7-17); BUN/CREATININE RATIO 12 (12-20 (CALC)); CHLORIDE 107 mmol/l (95-108); CREATININE 0.8 mg/dL (0.5-1.0); GFR > 60 ML/MIN (>=60 (CALC)); GFR FOR AFR.AMER. > 60 ML/MIN (>=60 (CALC)); POTASSIUM 4.2 mmol/l (3.5-5.1); SODIUM 140 mmol/l (137-146)
[2019-08-23 12:18] LABS: CARBON DIOXIDE 25 mmol/l (22-30)
--- NOTE | 2019-08-23 13:26 | NUR ---
CHEST PAIN REMAINS A 0 AT THIS TIME, DENIES ANY SOB, SITTING WATCHING TV WITH NO DISTRESS NOTED.
--- NOTE | 2019-08-23 13:58 | NUR ---
PT STATES STARTING TO HAVE A LITTLE RIGHT SIDED PAIN UNDER RIGHT BREAST. AND HER RIGHT FOOT IS STARTING TO HURT. DENIES ANY SOB , SITTING WATCHING TV ON STRETCHER, NO SEVERE DISTRESS NOTED. VSS STABLE.
--- NOTE | 2019-08-23 14:15 | NUR ---
REPORT CALLED TO MED SURG FOR CONTINUATION OF CARE. PT PLACED IN W/C WITH TELEMETRY AND TAKEN TO FLOOR
[2019-08-23 14:35] VITALS: BP 147/84
--- NOTE | 2019-08-23 15:42 | NUR ---
PT HAD COME FROM ER VIA WHEELCHAIR BY JANETT. ASSESSMENT DONE. TELE IN PLACE. PT IS A&O X3. 02 AT 3L VIA NC. SKIN INTACT. SAFETY PRECAUTIONS REINFORCED AND CALL LIGHT IN REACH.
[2019-08-23 16:29] LABS: BILIRUBIN, TOTAL 0.8 mg/dL (0.0-1.4)
[2019-08-23 18:21] LABS: URINE BILIRUBIN - DIPSTICK NEGATIVE (NEGATIVE); URINE BLOOD DIPSTICK NEGATIVE (NEGATIVE); URINE COLOR YELLOW; URINE GLUCOSE - DIPSTICK NEGATIVE (NEGATIVE); URINE KETONE NEGATIVE (NEGATIVE); URINE LEUK ESTERASE NEGATIVE (NEGATIVE); URINE NITRITE - DIPSTICK NEGATIVE (Negative); URINE PH 5.5 (4.5-8.0); URINE PROTEIN - DIPSTICK TRACE mg/dL (NEG-TRACE); URINE SPECIFIC GRAVITY >=1.030; URINE UROBILINOGEN - DIPSTICK 0.2 E.U./dL (0.2)
[2019-08-23 19:01] VITALS: BP 128/58
--- NOTE | 2019-08-23 19:06 | NUR ---
REPORT RECIEVED FROM NABILA CHERY. PT RESTING IN BED. NO S/S OF DISTRESS AT THIS TIME. SAFETY PRECAUTIONS IN PLACE. WILL CONTINUE TO MONITOR.
--- NOTE | 2019-08-23 20:55 | NUR ---
PT RESTING IN BED, ALERT AND ORIENTED. RESPIRATIONS EVEN AND UNLABORED ON O2 @ 2L VIA NC. LUNGS SOUND CLEAR DIMINISHED. PEDAL PULSES STRONG. SKIN IS INTACT. PT REPORTS PAIN OF AN 8/10 IN HER LEFT LEG, PT PROVIDED WITH A WARM PACK AND TO BE MEDICATED PER EMAR ORDERS. TELE IN PLACE. CALL SUAREZ WITHIN REACH. WILL CONTINUE TO MONITOR.
[2019-08-24] VITALS (8 sets, daily range): BP systolic 121–149; BP diastolic 71–98
--- NOTE | 2019-08-24 00:55 | NUR ---
PT RESTING IN BED. RESPIRATIONS EVEN AND UNLABORED ON RA. NO S/S OF DISTRESS AT THIS TIME. SAFETY PRECAUTIONS IN PLACE. WILL CONTINUE TO MONITOR.
--- NOTE | 2019-08-24 04:17 | NUR ---
PT RESTING IN BED. NO S/S OF DISTRESS AT THIS TIME SAFETY PRECAUTIONS IN PLACE. WILL CONTINUE TO MONITOR.
--- NOTE | 2019-08-24 05:14 | NUR ---
WOLF FROM ER CALL ABOUT PT HAVING A 6 BEAT RUN OF V-TACH. PT ASYMPTOMATIC. VS OBTAINED. CAROLYNN HOSAhsan REMOVED PER PT REQUEST. SAFETY PRECAUTIONS IN PLACE. WILL CONTINUE TO MONITOR.
[2019-08-24 06:32] LABS: HEMATOCRIT 46.6 % (37.0-47.0); IMMATURE GRANULOCYTES 0.5 % (0.0-5.0); MEAN CELL VOLUME 96.9 fL CALC (80.0-100.0); MEAN CORPUSCULAR HGB 29.1 pG CALC (26.0-32.0); NEUT# 6.95 thou/uL (2.00-7.15); RED BLOOD COUNT 4.81 mill/uL (4.20-5.60); RED CELL DISTRI WIDTH 16.8 % (11.5-15.5)
[2019-08-24 06:45] LABS: ANION GAP 11 (6-22 (CALC)); BUN 11 mg/dL (7-17); BUN/CREATININE RATIO 14 (12-20 (CALC)); CARBON DIOXIDE 26 mmol/l (22-30); CHLORIDE 103 mmol/l (95-108); CREATININE 0.8 mg/dL (0.5-1.0); GFR > 60 ML/MIN (>=60 (CALC)); GFR FOR AFR.AMER. > 60 ML/MIN (>=60 (CALC)); POTASSIUM 4.9 mmol/l (3.5-5.1); SODIUM 135 mmol/l (137-146)
--- NOTE | 2019-08-24 08:00 | NUR ---
PT SEEN RESTING IN BED, ALERT AND ORIENTED X 3. LUNGS CLEAR BUT DIMINISHED PER OBESITY, USES 3 LPM NC. NO COMPLAINTS OF SHORTNESS OF BREATH. PT IS AMBULATORY IN ROOM TO BR NEEDED.
[2019-08-24] MEDS ORDERED: ELIQUIS5 MG PO (10:09)
--- NOTE | 2019-08-24 12:00 | NUR ---
PT CONTINUES BEFORE, NO SIGNIFICANT CHANGE IN STATUS. PT MEDICATED FOR PAIN TO LEFT LOWER EXTREMITY. PT CONTINUES AMBULATORY TO BR.
--- NOTE | 2019-08-24 16:05 | NUR ---
PT RESTS IN THE BED WITH VISITOR AT BEDSIDE, HAS OFFERED NO COMPLAINTS. PT AMBULATORY IN ROOM NEEDED TO BR.
--- NOTE | 2019-08-24 18:19 | NUR ---
PT PROVIDED TORADOL FOR LLE PAIN.
--- NOTE | 2019-08-24 19:15 | NUR ---
REPORT RECEIVED FROM DAY NURSE. PT UPRIGHT IN BED W/FAMILY AT BEDSIDE. PT REPORTS PAIN IMPROVED, BUT STILL THERE, WAS JUST MEDICATED BY DAY NURSE. WILL CONTINUE TO MONITOR AND MEDICATE ORDERS PROVIDE AND NEEDS ARISE. CALL LIGHT IN PT HAND AND PT ENCOURAGED TO CALL/VERBALIZED UNDERSTANDING.
--- NOTE | 2019-08-24 21:50 | NUR ---
PT REQUESTING SANDWICH AND ICECREAM/SNACK PROVIDED BY AIDE. FAMILY MEMBER ASLEEP AT BEDSIDE. PT MEDICATED ORDERS PROVIDE AND ASSESSMENT COMPLETED AT THIS TIME. NO S/O DISTRESS AT THIS TIME. PT LEFT SITTING UP WATCHING TV, ON CELL PHONE AND EATING SNACK. WILL CONTINUE TO MONITOR, ENCOURAGED TO CALL NEEDS ARISE, CALL LIGHT AT SIDE.
--- NOTE | 2019-08-25 01:45 | NUR ---
PT SLEEPING AT THIS TIME. FAMILY MEMBER ASLEEP AT BEDSIDE. NO S/O DISTRESS NOTED. CALL LIGHT W/IN REACH.
[2019-08-25 04:40] VITALS: BP 134/84
--- NOTE | 2019-08-25 05:00 | NUR ---
PT MEDICATED ORDERS PROVIDE. PT PROVIDED NEW DIAMOND FOR BED AND GOWN, PT REPORTS PLANNING TO CLEAN UP A LITTLE, DENIES NEED FOR HELP AND PT REMINDED NOT TO GET IV SITE WET/OFFERED TO COVER, DENIED NEED. VERBALIZED UNDERSTANDING AND PT ENCOURAGED TO CALL IF ANY ASSISTANCE WAS NEEDED. FAMILY AT SIDE.
[2019-08-25 07:30] VITALS: BP 140/73
--- NOTE | 2019-08-25 07:30 | NUR ---
ASSESSMENT IS COMPLETED: IV SITE IS FREE FROM REDNESS OR EDEMA. HR IS REG,PULSES ARE STRONG X4, ABD IS SOFT WITH ACTIVE BS. BREATH SOUNDS ARE CLEAR AND DIMINISHED O2 @ 3LITERS WITH NC CONTINUE TO OBSERVE AND MONITOR.
[2019-08-25] MEDS ORDERED: PREDNISONE10 MG PO (10:24)
[2019-08-25] MEDS ORDERED: ZITHROMAX250 MG PO (10:24)
[2019-08-25 10:50] VITALS: BP 147/88
--- NOTE | 2019-08-25 12:00 | NUR ---
PT HAS BEEN RESTING IN BED WITH NO DISTRESS NOTED. IV SITE IS FREE FROM REDNESS OR EDEMA.
--- NOTE | 2019-08-25 13:58 | NUR ---
DISCHARGE INSTRUCTIONS GIVEN AND PT VERBALIZED UNDERSTANDING. ABLE TO HAVE A BM PRIOR TO LEAVING. IV SITE DISCONTINUED CATHETER INTACT NO REDNESS OR EDEMA. CONTINUE TO OSBERVE AND MONITOR.
--- NOTE | 2019-08-25 14:00 | NUR ---
Discharge instructions given. Patient verbalizes understanding of same. Discharged in stable condition via Wheelchair to Home with family. All belongings sent with pt.
--- NOTE | 2019-08-25 14:18 | NUR ---
Attempted to discuss antibiotics and respiratory medications with patient at 11:15. Patient was sleeping. Attempted to come back later and patient was discharged at 14:00.
== END 2019-08-25 13:36 | disposition home or self-care (01) ==
LOC: ED 10:31 → ED-I 12:53 → ED 13:14 → MS2 13:15
PROVIDERS: Family Medicine; Nurse Practitioner Family; ADMIT Internal Medicine; ATTEND Internal Medicine
DX: R07.9 Chest pain, unspecified (principal); J96.21 Acute and chronic respiratory failure with hypoxia; J20.9 Acute bronchitis, unspecified; I10 Essential (primary) hypertension; E66.2 Morbid (severe) obesity with alveolar hypoventilation; M19.90 Unspecified osteoarthritis, unspecified site; K21.9 Gastro-esophageal reflux disease without esophagitis; G89.29 Other chronic pain; M25.572 Pain in left ankle and joints of left foot; T45.516A Underdosing of anticoagulants, initial encounter; I27.20 Pulmonary hypertension, unspecified; Z91.128 Patient's intentional underdosing of medication regimen for other reason; Z79.01 Long term (current) use of anticoagulants; Z68.44 Body mass index [BMI] 60.0-69.9, adult; Z86.711 Personal history of pulmonary embolism; Z87.01 Personal history of pneumonia (recurrent); Z99.81 Dependence on supplemental oxygen
CPT/HCPCS: G0378

== ENCOUNTER 2019-09-07 12:09 | Emergency (ER) | payer MEDICAID ==
[~2019-09-07] VITALS: Ht 162.6 cm; Wt 165.0 kg
[~2019-09-07 12:09] MED LIST changes: +ELIQUIS5 MG PO; +PREDNISONE10 MG PO; +ZITHROMAX250 MG PO
[2019-09-07] MEDS ORDERED: Levaquin PO (12:33)
[2019-09-07 12:45] LABS: HEMATOCRIT 44.4 % (37.0-47.0); HEMOGLOBIN 13.5 g/dl (12.0-16.0); IMMATURE GRANULOCYTES 0.5 % (0.0-5.0); MEAN CELL VOLUME 97.8 fL CALC (80.0-100.0); MEAN CORPUSCULAR HGB 29.7 pG CALC (26.0-32.0); MEAN CORPUSCULAR HGB CONC 30.4 g/L CALC (32.0-36.0); NEUT# 4.42 thou/uL (2.00-7.15); RED BLOOD COUNT 4.54 mill/uL (4.20-5.60); RED CELL DISTRI WIDTH 16.6 % (11.5-15.5)
[2019-09-07 12:59] LABS: ALBUMIN 3.6 g/dL (3.2-5.0); ALKALINE PHOSPHATASE 102 u/l (38-126); AMYLASE 34 u/l (30-110); ANION GAP 12 (6-22 (CALC)); BILIRUBIN, TOTAL 1.1 mg/dL (0.0-1.4); BUN 9 mg/dL (7-17); BUN/CREATININE RATIO 10 (12-20 (CALC)); CARBON DIOXIDE 27 mmol/l (22-30); CHLORIDE 102 mmol/l (95-108); CREATININE 0.9 mg/dL (0.5-1.0); GFR > 60 ML/MIN (>=60 (CALC)); GFR FOR AFR.AMER. > 60 ML/MIN (>=60 (CALC)); LIPASE 39 u/l (23-300); POTASSIUM 3.7 mmol/l (3.5-5.1); SGOT/AST 28 u/l (14-36); SODIUM 137 mmol/l (137-146); TOTAL PROTEIN 7.3 g/dL (6.3-8.2)
[2019-09-07 13:10] LABS: MYOGLOBIN 35 ng/mL (0 - 62)
[2019-09-07 14:17] VITALS: BP 128/78
== END 2019-09-07 14:17 | disposition home or self-care (01) ==
LOC: ED 12:09
PROVIDERS: Family Medicine
DX: R07.89 Other chest pain (principal); I10 Essential (primary) hypertension; E66.01 Morbid (severe) obesity due to excess calories; G47.30 Sleep apnea, unspecified; Z99.81 Dependence on supplemental oxygen

== ENCOUNTER 2019-10-11 | Observation (INO) | payer MEDICAID ==
[~2019-10-11] MED LIST changes: +Levaquin PO
--- NOTE | 2019-10-11 08:58 | NUR ---
PT TO ROOM VIA FOR BEDSIDE TRIAGE PT STATES HAVING SOB BEGINING AT 0200 THIS MORNING, PT STATES HAVING A NOSE BLEED AND ALSO VOMITING WITH SOME BLOOD. PT DENIES ANY C/P OR WEAKNESS. PT IS ON HOME 02 AT 3 LPM, HAS WHEEZING BILATERAL. PT IS AOX4.
[2019-10-11 09:38] LABS: ANION GAP 14 (6-22 (CALC)); BUN 8 mg/dL (7-17); BUN/CREATININE RATIO 8 (12-20 (CALC)); CARBON DIOXIDE 27 mmol/l (22-30); CHLORIDE 105 mmol/l (95-108); CREATININE 0.9 mg/dL (0.5-1.0); GFR > 60 ML/MIN (>=60 (CALC)); GFR FOR AFR.AMER. > 60 ML/MIN (>=60 (CALC)); POTASSIUM 3.8 mmol/l (3.5-5.1); SODIUM 141 mmol/l (137-146)
[2019-10-11 09:43] LABS: HEMATOCRIT 45.8 % (37.0-47.0); HEMOGLOBIN 13.9 g/dl (12.0-16.0); IMMATURE GRANULOCYTES 0.3 % (0.0-5.0); MEAN CELL VOLUME 97.9 fL CALC (80.0-100.0); MEAN CORPUSCULAR HGB 29.7 pG CALC (26.0-32.0); MEAN CORPUSCULAR HGB CONC 30.3 g/L CALC (32.0-36.0); NEUT# 2.26 thou/uL (2.00-7.15); RED BLOOD COUNT 4.68 mill/uL (4.20-5.60); RED CELL DISTRI WIDTH 16.8 % (11.5-15.5)
--- NOTE | 2019-10-11 09:58 | NUR ---
PT RESTING OM STRETCHER, STATES BREATHING HAS SLIGHTLY IMPROVED, WHEEZING HAS DIMINISHED
--- NOTE | 2019-10-11 10:38 | NUR ---
PT UP TO BEDSIDE COMMOMDE FOR A BOWEL MOVEMENT
--- NOTE | 2019-10-11 10:47 | NUR ---
SBAR PRINTED TO FLOOR
--- NOTE | 2019-10-11 11:36 | NUR ---
PT RESTING ON STRETCHER, NO COMPLAINTS STATED, STATES HEADACHE IS GONE NOW
--- NOTE | 2019-10-11 11:58 | NUR ---
REPROT CALLED TO [facility]- KRISS GARDUNO ACCEPTED PT
--- NOTE | 2019-10-11 12:06 | NUR ---
PT ARRIVED FROM ER VIA STRETCHER ACCOMPANIED BY STAFF., IV SITE IS INTACT. O2 @ 3LITERS WITH NC.
[2019-10-11 12:52] VITALS: BP 149/96
--- NOTE | 2019-10-11 13:00 | NUR ---
ASSESSMENT IS COMPLETE:IV SITE IS FREE FROM REDNESS OR EDEMA. NO DISTRESS NTOED. HR IS REG,PULSES ARE STRONG X4, ABD IS SOFT WITH ACTIVE BS, BREATH SOUNDS ARE COARSE, CLEAR, AND DIMINISHED. O2 @ 3LITERS WITH NC, CONTINUE TO OSBERVE AND MONITOR
[2019-10-11 15:49] VITALS: BP 153/102
--- NOTE | 2019-10-11 16:30 | NUR ---
IV SITE STOPPED WORKING ATTEMPTED TO RESTART. THEN ENRRIQUE POT PRESS OPERATOR. RESTARTED. TOTAL X3 ATTEMPTS. PT TOLERATED WELL AT 1725
--- NOTE | 2019-10-11 16:50 | NUR ---
PT IS RELAXING IN BED WITH NO DISTRESS NOTED. IV SITE IS FREE FROM REDNESS OR EDEMA.
[2019-10-11 19:20] VITALS: BP 140/88
--- NOTE | 2019-10-11 20:30 | NUR ---
PT MEDICATED ORDERS PROVIDE. ASSESSMENT COMPLETED AT THIS TIME. PT EATING SANDWICH AND COKE AT THIS TIME. REPORTS STOMACH "FEELING BETTER NOW." NO S/O DISTRESS AT THIS TIME. CALL LIGHT AT SIDE.
[2019-10-12] VITALS (7 sets, daily range): BP systolic 111–165; BP diastolic 68–97
--- NOTE | 2019-10-12 00:25 | NUR ---
AIDE IN W/PT AT THIS TIME. PT IS ASKING FOR ICECREAM/PROVIDED. DENIES ANY OTHER NEEDS. CALL LIGHT AT SIDE.
--- NOTE | 2019-10-12 03:00 | NUR ---
NO S\O DISTRESS, PT SLEEPING AT THIS TIME. CALL LIGHT W/IN REACH.
--- NOTE | 2019-10-12 08:00 | NUR ---
PT SEEN AWAKE, ALERT,ORIENTED X 3. LUNGS ARE CLEAR BUT DIMINISHED PER LARGENESS. NO REPORT OF SHORTNESS OF BREATH, NO COMPLAINTS.
--- NOTE | 2019-10-12 12:00 | NUR ---
PT PROVIDED TYLENOL FOR PAIN RELIEF, STATED THAT SHE HAD FACE PAIN.
--- NOTE | 2019-10-12 16:00 | NUR ---
PT CONTINUES BEFORE, AT BEDSIDE. NO REPORT OF SHORTNESS OF BREATH.
--- NOTE | 2019-10-12 21:10 | NUR ---
PT MEDICATED ORDERS PROVIDE. V/S REASSESSED AND PT ASSESSMENT COMPLETED AT THIS TIME. PT AMBULATED TO RESTROOM. PO FLUIDS AND SNACK PROVIDED/REQUEST. PT DENIES ANY OTHER NEEDS AT THIS TIME. CALL LIGHT W/IN REACH.
[2019-10-13 00:15] VITALS: BP 151/70
--- NOTE | 2019-10-13 02:15 | NUR ---
PT SLEEPING AT THIS TIME. NO S/O DISTRESS. CALL LIGHT W/IN REACH.
[2019-10-13 04:20] VITALS: BP 148/76
[2019-10-13 04:46] LABS: HEMOGLOBIN 14.3 g/dl (12.0-16.0); IMMATURE GRANULOCYTES 0.4 % (0.0-5.0); MEAN CORPUSCULAR HGB 29.9 pG CALC (26.0-32.0); MEAN CORPUSCULAR HGB CONC 31.1 g/L CALC (32.0-36.0); NEUT# 8.37 thou/uL (2.00-7.15); RED BLOOD COUNT 4.79 mill/uL (4.20-5.60); RED CELL DISTRI WIDTH 16.2 % (11.5-15.5)
[2019-10-13 05:10] LABS: BUN 25 mg/dL (7-17); BUN/CREATININE RATIO 26 (12-20 (CALC)); CARBON DIOXIDE 28 mmol/l (22-30); CHLORIDE 95 mmol/l (95-108); GFR 59 ML/MIN (>=60 (CALC)); GFR FOR AFR.AMER. > 60 ML/MIN (>=60 (CALC)); MAGNESIUM 2.4 mg/dL (1.6-2.3)
[2019-10-13 05:13] LABS: ANION GAP 15 (6-22 (CALC)); POTASSIUM 4.6 mmol/l (3.5-5.1); SODIUM 133 mmol/l (137-146)
--- NOTE | 2019-10-13 05:15 | NUR ---
CRITICAL GLUCOSE CALLED FROM LAB [facility], WILL NOTIFY PHYSICIAN ACID PURIFICATION EQUIPMENT OPERATOR.
[2019-10-13 07:31] VITALS: BP 149/95
--- NOTE | 2019-10-13 08:00 | NUR ---
PT AWAKE, ALERT, ORIENTED X 3. LUNGS CLEAR, SLIGHTLY DIMINISHED, USES 3 LPM NC. PT OOB IN ROOM, ISOLATION SET UP PER FLU POSITIVE. NO COMPLAINTS, NO DISTRESS.
[2019-10-13 10:40] VITALS: BP 121/79
--- NOTE | 2019-10-13 12:00 | NUR ---
PT RESTS IN THE BED, NO COMPLAINTS OF SHORTNESS OF BREATH OR OTHERWISE. AT BEDSIDE.
[2019-10-13 14:45] VITALS: BP 132/82
--- NOTE | 2019-10-13 16:00 | NUR ---
PT SEEN BY DR ADAIR THIS AFTERNOON, DISCHARGE PENDING. PT NO CHANGE IN STATUS, STABLE.
[2019-10-13] MEDS ORDERED: TAM75CAP PO (16:02)
[2019-10-13] MEDS ORDERED: AMOXICILLIN500 MG PO (16:04)
[2019-10-13] MEDS ORDERED: MEDROL4 M1 PO (16:06)
--- NOTE | 2019-10-13 16:46 | NUR ---
PT DISCHARGED TO HOME AT THIS TIME. PT VERBALIZES UNDERSTANDING OF DC INSTRUCTIONS, TAKEN TO LOBBY VIA WHEELCHAIR.
== END 2019-10-13 16:57 | disposition home or self-care (01) ==
PROVIDERS: Family Medicine; Nurse Practitioner Family; ADMIT Internal Medicine
DX: J10.1 Influenza due to other identified influenza virus with other respiratory manifestations (principal); I11.0 Hypertensive heart disease with heart failure; I50.9 Heart failure, unspecified; E66.01 Morbid (severe) obesity due to excess calories; Z68.44 Body mass index [BMI] 60.0-69.9, adult; G47.33 Obstructive sleep apnea (adult) (pediatric); K21.9 Gastro-esophageal reflux disease without esophagitis; M19.90 Unspecified osteoarthritis, unspecified site; Z99.81 Dependence on supplemental oxygen; Z86.711 Personal history of pulmonary embolism; Z79.01 Long term (current) use of anticoagulants
CPT/HCPCS: G0378

== ENCOUNTER 2019-10-20 | Emergency (ER) | payer MEDICAID ==
[~2019-10-20] MED LIST changes: +MEDROL4 M1 PO; +TAM75CAP PO
[2019-10-20 09:50] LABS: HEMATOCRIT 47.7 % (37.0-47.0); HEMOGLOBIN 15.4 g/dl (12.0-16.0); IMMATURE GRANULOCYTES 0.5 % (0.0-5.0); MEAN CELL VOLUME 94.3 fL CALC (80.0-100.0); MEAN CORPUSCULAR HGB 30.4 pG CALC (26.0-32.0); MEAN CORPUSCULAR HGB CONC 32.3 g/L CALC (32.0-36.0); NEUT# 8.3 thou/uL (2.00-7.15); RED BLOOD COUNT 5.06 mill/uL (4.20-5.60); RED CELL DISTRI WIDTH 15.4 % (11.5-15.5)
[2019-10-20] MEDS ORDERED: TAM75CAP PO (09:54)
[2019-10-20 10:11] LABS: ANION GAP 14 (6-22 (CALC)); BUN 18 mg/dL (7-17); BUN/CREATININE RATIO 21 (12-20 (CALC)); CARBON DIOXIDE 31 mmol/l (22-30); CHLORIDE 90 mmol/l (95-108); CREATININE 0.9 mg/dL (0.5-1.0); GFR > 60 ML/MIN (>=60 (CALC)); GFR FOR AFR.AMER. > 60 ML/MIN (>=60 (CALC)); SODIUM 131 mmol/l (137-146)
[2019-10-20 10:13] LABS: POTASSIUM 3.6 mmol/l (3.5-5.1)
== END 2019-10-20 10:11 | disposition short-term general hospital (02) ==
PROVIDERS: Family Medicine
DX: I21.3 ST elevation (STEMI) myocardial infarction of unspecified site (principal); I10 Essential (primary) hypertension; G47.30 Sleep apnea, unspecified; E66.01 Morbid (severe) obesity due to excess calories; Z99.81 Dependence on supplemental oxygen
CPT/HCPCS: J1644

== ENCOUNTER 2020-01-15 17:33 | Emergency (ER) | payer MEDICAID ==
[2020-01-15] MEDS ORDERED: VOLTAREN1%GEL TOP (18:19)
[2020-01-15] MEDS ORDERED: PENICILLN VK500 M1 PO (18:19)
[2020-01-15 18:36] VITALS: BP 157/112
== END 2020-01-15 18:36 | disposition home or self-care (01) ==
LOC: ED 17:33
DX: S46.911A Strain of unspecified muscle, fascia and tendon at shoulder and upper arm level, right arm, initial encounter (principal); M25.572 Pain in left ankle and joints of left foot; M25.571 Pain in right ankle and joints of right foot; K08.89 Other specified disorders of teeth and supporting structures; I10 Essential (primary) hypertension; E66.01 Morbid (severe) obesity due to excess calories; Z99.81 Dependence on supplemental oxygen; X58.XXXA Exposure to other specified factors, initial encounter

== ENCOUNTER 2020-01-24 | Emergency (ER) | payer MEDICAID ==
[~2020-01-24] MED LIST changes: +PENICILLN VK500 M1 PO; +VOLTAREN1%GEL TOP
[2020-01-24] MEDS ORDERED: CLEOCIN300 MG PO (09:30)
[2020-01-24] MEDS ORDERED: LOTRISONE CREAM15 GM EX (09:30)
[2020-01-24] MEDS ORDERED: PREVACID30 M3 PO (09:32)
[2020-01-24 09:37] LABS: HEMATOCRIT 44.1 % (37.0-47.0); HEMOGLOBIN 13.5 g/dl (12.0-16.0); IMMATURE GRANULOCYTES 0.3 % (0.0-5.0); MEAN CELL VOLUME 99.5 fL CALC (80.0-100.0); MEAN CORPUSCULAR HGB 30.5 pG CALC (26.0-32.0); MEAN CORPUSCULAR HGB CONC 30.6 g/dL CAL (32.0-36.0); NEUT# 4.43 thou/uL (2.00-7.15); RED BLOOD COUNT 4.43 mill/uL (4.20-5.60); RED CELL DISTRI WIDTH 15.3 % (11.5-15.5)
[2020-01-24 09:55] LABS: ALBUMIN 3.4 g/dL (3.2-5.0); ALKALINE PHOSPHATASE 97 u/l (38-126); BILIRUBIN, TOTAL 1.1 mg/dL (0.0-1.4); BUN 6 mg/dL (7-17); BUN/CREATININE RATIO 9 (12-20 (CALC)); CARBON DIOXIDE 30 mmol/l (22-30); CREATININE 0.7 mg/dL (0.5-1.0); GFR > 60 ML/MIN (>=60 (CALC)); GFR FOR AFR.AMER. > 60 ML/MIN (>=60 (CALC)); POTASSIUM 3.6 mmol/l (3.5-5.1); SGOT/AST 33 u/l (14-36); TOTAL PROTEIN 7.2 g/dL (6.3-8.2)
[2020-01-24 09:56] LABS: ANION GAP 8 (6-22 (CALC)); CHLORIDE 104 mmol/l (95-108); SODIUM 138 mmol/l (137-146)
== END 2020-01-24 10:55 | disposition home or self-care (01) ==
PROVIDERS: Emergency Medicine
DX: K04.7 Periapical abscess without sinus (principal); K02.9 Dental caries, unspecified; L30.4 Erythema intertrigo; I10 Essential (primary) hypertension; E11.9 Type 2 diabetes mellitus without complications; E66.01 Morbid (severe) obesity due to excess calories; G47.30 Sleep apnea, unspecified; Z99.81 Dependence on supplemental oxygen

== ENCOUNTER 2020-02-16 | Emergency (ER) | payer MEDICAID ==
[~2020-02-16] MED LIST changes: +CLEOCIN300 MG PO; +LOTRISONE CREAM15 GM EX; +PREVACID30 M3 PO
[2020-02-17 00:03] LABS: HEMATOCRIT 45.6 % (37.0-47.0); HEMOGLOBIN 14.4 g/dl (12.0-16.0); IMMATURE GRANULOCYTES 0.2 % (0.0-5.0); MEAN CELL VOLUME 94.8 fL CALC (80.0-100.0); MEAN CORPUSCULAR HGB 29.9 pG CALC (26.0-32.0); MEAN CORPUSCULAR HGB CONC 31.6 g/dL CAL (32.0-36.0); NEUT# 5.91 thou/uL (2.00-7.15); RED BLOOD COUNT 4.81 mill/uL (4.20-5.60); RED CELL DISTRI WIDTH 14.6 % (11.5-15.5)
[2020-02-17 00:20] LABS: ALBUMIN 3.7 g/dL (3.2-5.0); ALKALINE PHOSPHATASE 124 u/l (38-126); AMYLASE 52 u/l (30-110); ANION GAP 8 (6-22 (CALC)); BILIRUBIN, TOTAL 1.1 mg/dL (0.0-1.4); BUN 9 mg/dL (7-17); BUN/CREATININE RATIO 11 (12-20 (CALC)); CARBON DIOXIDE 35 mmol/l (22-30); CHLORIDE 95 mmol/l (95-108); CREATININE 0.8 mg/dL (0.5-1.0); GFR > 60 ML/MIN (>=60 (CALC)); GFR FOR AFR.AMER. > 60 ML/MIN (>=60 (CALC)); LIPASE 46 u/l (23-300); POTASSIUM 2.9 mmol/l (3.5-5.1); SGOT/AST 45 u/l (14-36); SODIUM 136 mmol/l (137-146); TOTAL PROTEIN 7.9 g/dL (6.3-8.2)
[2020-02-17 00:48] LABS: URINE BILIRUBIN - DIPSTICK NEGATIVE (NEGATIVE); URINE BLOOD DIPSTICK NEGATIVE (NEGATIVE); URINE COLOR YELLOW; URINE GLUCOSE - DIPSTICK NEGATIVE (NEGATIVE); URINE KETONE NEGATIVE (NEGATIVE); URINE LEUK ESTERASE NEGATIVE (NEGATIVE); URINE NITRITE - DIPSTICK NEGATIVE (Negative); URINE PH 5.5 (4.5-8.0); URINE PROTEIN - DIPSTICK NEGATIVE (NEG-TRACE); URINE SPECIFIC GRAVITY <=1.005; URINE UROBILINOGEN - DIPSTICK 0.2 E.U./dL (0.2)
[2020-02-17 01:08] LABS: BARBITURATES NEGATIVE (NEGATIVE); COCAINE NEGATIVE (NEGATIVE); METHADONE NEGATIVE (NEGATIVE); OXCYCODONE NEGATIVE (NEGATIVE); TETRAHYDROCANNABIONOL NEGATIVE (NEGATIVE); TRICYLIC ANTIDEPRESSANTS NEGATIVE (NEGATIVE)
[2020-02-17] MEDS ORDERED: DOXYCYCL HYC100 MG PO (02:07)
[2020-02-17] MEDS ORDERED: K-DUR/KLOR-CON20 MEQ PO (02:07)
[2020-02-17] MEDS ORDERED: LIPITOR10 M1 PO (02:44)
[2020-02-17] MEDS ORDERED: CLINDAMYCIN300 M1 PO (18:39)
[2020-02-17] MEDS ORDERED: MOTRIN400 MG PO (18:39)
== END 2020-02-17 02:46 | disposition home or self-care (01) ==
PROVIDERS: Family Medicine
DX: K59.00 Constipation, unspecified (principal); K04.7 Periapical abscess without sinus; E87.6 Hypokalemia; I10 Essential (primary) hypertension; E66.01 Morbid (severe) obesity due to excess calories; Z99.81 Dependence on supplemental oxygen; Z68.44 Body mass index [BMI] 60.0-69.9, adult

== ENCOUNTER 2020-02-17 | Emergency (ER) | payer MEDICAID ==
[2020-02-17] MEDS ORDERED: K-DUR/KLOR-CON20 MEQ PO (02:07)
[2020-02-17] MEDS ORDERED: DOXYCYCL HYC100 MG PO (02:07)
[2020-02-17] MEDS ORDERED: LIPITOR10 M1 PO (02:44)
[2020-02-17] MEDS ORDERED: MOTRIN400 MG PO (18:39)
[2020-02-17] MEDS ORDERED: CLINDAMYCIN300 M1 PO (18:39)
== END 2020-02-17 19:35 | disposition home or self-care (01) ==
DX: K08.89 Other specified disorders of teeth and supporting structures (principal); I10 Essential (primary) hypertension; E66.01 Morbid (severe) obesity due to excess calories; Z99.81 Dependence on supplemental oxygen

== ENCOUNTER 2020-04-10 03:25 | Emergency (ER) | payer MEDICAID ==
[~2020-04-10] VITALS: Ht 162.6 cm; Wt 169.0 kg
[~2020-04-10 03:25] MED LIST changes: +CLINDAMYCIN300 M1 PO; +DOXYCYCL HYC100 MG PO; +K-DUR/KLOR-CON20 MEQ PO; +LIPITOR10 M1 PO; +MOTRIN400 MG PO
[2020-04-10 04:04] LABS: HEMATOCRIT 44.3 % (37.0-47.0); HEMOGLOBIN 13.7 g/dl (12.0-16.0); IMMATURE GRANULOCYTES 0.3 % (0.0-5.0); MEAN CELL VOLUME 94.9 fL CALC (80.0-100.0); MEAN CORPUSCULAR HGB 29.3 pG CALC (26.0-32.0); MEAN CORPUSCULAR HGB CONC 30.9 g/dL CAL (32.0-36.0); RED BLOOD COUNT 4.67 mill/uL (4.20-5.60); RED CELL DISTRI WIDTH 17.9 % (11.5-15.5)
[2020-04-10 04:05] LABS: URINE BILIRUBIN - DIPSTICK NEGATIVE (NEGATIVE); URINE COLOR YELLOW; URINE GLUCOSE - DIPSTICK NEGATIVE (NEGATIVE); URINE KETONE NEGATIVE (NEGATIVE); URINE NITRITE - DIPSTICK NEGATIVE (Negative); URINE PH 6.5 (4.5-8.0); URINE PROTEIN - DIPSTICK NEGATIVE (NEG-TRACE); URINE SPECIFIC GRAVITY <=1.005; URINE UROBILINOGEN - DIPSTICK 0.2 E.U./dL (0.2)
[2020-04-10 04:14] LABS: URINE LEUK ESTERASE SMALL (NEGATIVE)
[2020-04-10 04:15] LABS: URINE BACTERIA MODERATE hpf; URINE BLOOD DIPSTICK NEGATIVE (NEGATIVE); URINE EPITHELIAL CELLS MODERATE EPI/hpf (0-FEW)
[2020-04-10] MEDS ORDERED: HYDROCHLOROT25 MG PO (04:18)
[2020-04-10] MEDS ORDERED: ELIQUIS5 MG PO (04:19)
[2020-04-10] MEDS ORDERED: CARAFATE1 GM PO (04:20)
[2020-04-10] MEDS ORDERED: DICLOFENAC SODIUM1 % EX (04:21)
[2020-04-10] MEDS ORDERED: LOTRISONE CREAM15 G1 EX (04:22)
[2020-04-10 04:24] LABS: ACT PARTIAL THROMBO TIME 26.4 SECONDS (20.0-32.5); INTERNATIONAL NORMALIZED RATIO 1.1 RATIO (0.7-1.3); PROTHROMBIN TIME 11.1 SECONDS (9.0-12.5)
[2020-04-10 04:30] LABS: ALBUMIN 3.4 g/dL (3.2-5.0); ALKALINE PHOSPHATASE 101 u/l (38-126); ANION GAP 13 (6-22 (CALC)); BUN 3 mg/dL (7-17); BUN/CREATININE RATIO 4 (12-20 (CALC)); CARBON DIOXIDE 28 mmol/l (22-30); CHLORIDE 97 mmol/l (95-108); CREATININE 0.8 mg/dL (0.5-1.0); GFR > 60 ML/MIN (>=60 (CALC)); GFR FOR AFR.AMER. > 60 ML/MIN (>=60 (CALC)); POTASSIUM 2.8 mmol/l (3.5-5.1); SGOT/AST 48 u/l (14-36); SODIUM 135 mmol/l (137-146); TOTAL PROTEIN 7.2 g/dL (6.3-8.2)
[2020-04-10 05:50] VITALS: BP 108/60
[2020-04-10] MEDS ORDERED: ANUCORT-HC25 MG RE ×2 (06:02)
[2020-04-10] MEDS ORDERED: BACTRIM DS1 TAB PO (06:02)
== END 2020-04-10 06:20 | disposition home or self-care (01) ==
LOC: ED 03:25
DX: K64.9 Unspecified hemorrhoids (principal); N39.0 Urinary tract infection, site not specified; E87.6 Hypokalemia; I10 Essential (primary) hypertension; E66.01 Morbid (severe) obesity due to excess calories; B96.20 Unspecified Escherichia coli [E. coli] as the cause of diseases classified elsewhere; Z99.81 Dependence on supplemental oxygen; Z79.01 Long term (current) use of anticoagulants; Z86.711 Personal history of pulmonary embolism
CPT/HCPCS: Q9967

== ENCOUNTER 2020-05-04 11:39 | Emergency (ER) | payer MEDICAID ==
[~2020-05-04] VITALS: Ht 162.6 cm; Wt 158.8 kg
[~2020-05-04 11:39] MED LIST changes: +ANUCORT-HC25 MG RE; +BACTRIM DS1 TAB PO; +DICLOFENAC SODIUM1 % EX; +LOTRISONE CREAM15 G1 EX
[2020-05-04 12:31] LABS: URINE BILIRUBIN - DIPSTICK NEGATIVE (NEGATIVE); URINE BLOOD DIPSTICK NEGATIVE (NEGATIVE); URINE COLOR YELLOW; URINE GLUCOSE - DIPSTICK NEGATIVE (NEGATIVE); URINE KETONE NEGATIVE (NEGATIVE); URINE LEUK ESTERASE TRACE (NEGATIVE); URINE NITRITE - DIPSTICK NEGATIVE (Negative); URINE PH 7.5 (4.5-8.0); URINE PROTEIN - DIPSTICK NEGATIVE (NEG-TRACE); URINE SPECIFIC GRAVITY 1.015; URINE UROBILINOGEN - DIPSTICK 0.2 E.U./dL (0.2)
[2020-05-04 13:16] LABS: HEMATOCRIT 48.6 % (37.0-47.0); HEMOGLOBIN 14.8 g/dl (12.0-16.0); IMMATURE GRANULOCYTES 0.3 % (0.0-5.0); MEAN CELL VOLUME 96.2 fL CALC (80.0-100.0); MEAN CORPUSCULAR HGB 29.3 pG CALC (26.0-32.0); MEAN CORPUSCULAR HGB CONC 30.5 g/dL CAL (32.0-36.0); NEUT# 4.71 thou/uL (2.00-7.15); RED BLOOD COUNT 5.05 mill/uL (4.20-5.60); RED CELL DISTRI WIDTH 18.6 % (11.5-15.5)
[2020-05-04 13:27] LABS: ALBUMIN 3.9 g/dL (3.2-5.0); ALKALINE PHOSPHATASE 96 u/l (38-126); AMYLASE 50 u/l (30-110); ANION GAP 9 (6-22 (CALC)); BILIRUBIN, TOTAL 1.2 mg/dL (0.0-1.4); BUN 5 mg/dL (7-17); BUN/CREATININE RATIO 6 (12-20 (CALC)); CARBON DIOXIDE 34 mmol/l (22-30); CHLORIDE 95 mmol/l (95-108); CREATININE 0.8 mg/dL (0.5-1.0); GFR > 60 ML/MIN (>=60 (CALC)); GFR FOR AFR.AMER. > 60 ML/MIN (>=60 (CALC)); LIPASE 34 u/l (23-300); POTASSIUM 2.7 mmol/l (3.5-5.1); SGOT/AST 49 u/l (14-36); SODIUM 135 mmol/l (137-146); TOTAL PROTEIN 7.5 g/dL (6.3-8.2)
[2020-05-04] MEDS ORDERED: PEPCID20 MG PO ×2 (15:52)
[2020-05-04 15:53] VITALS: BP 128/76
== END 2020-05-04 16:13 | disposition home or self-care (01) ==
LOC: ED 11:39
PROVIDERS: Student in an Organized Health Care Education/Training Program
DX: R10.13 Epigastric pain (principal); E87.6 Hypokalemia; K21.9 Gastro-esophageal reflux disease without esophagitis; I10 Essential (primary) hypertension; E66.01 Morbid (severe) obesity due to excess calories; G47.30 Sleep apnea, unspecified; Z91.19 Patient's noncompliance with other medical treatment and regimen

== ENCOUNTER 2020-05-07 11:28 | Emergency (ER) | payer MEDICAID ==
[~2020-05-07] VITALS: Ht 162.6 cm; Wt 147.7 kg
[~2020-05-07 11:28] MED LIST changes: +PEPCID20 MG PO
[2020-05-07 11:32] VITALS: BP 122/60
[2020-05-07 12:16] LABS: URINE BILIRUBIN - DIPSTICK NEGATIVE (NEGATIVE); URINE BLOOD DIPSTICK NEGATIVE (NEGATIVE); URINE COLOR YELLOW; URINE GLUCOSE - DIPSTICK NEGATIVE (NEGATIVE); URINE KETONE NEGATIVE (NEGATIVE); URINE NITRITE - DIPSTICK NEGATIVE (Negative); URINE PROTEIN - DIPSTICK NEGATIVE (NEG-TRACE); URINE SPECIFIC GRAVITY 1.025
[2020-05-07 12:17] LABS: URINE LEUK ESTERASE SMALL (NEGATIVE)
[2020-05-07 12:21] LABS: HEMATOCRIT 49.2 % (37.0-47.0); IMMATURE GRANULOCYTES 0.4 % (0.0-5.0); MEAN CELL VOLUME 95.7 fL CALC (80.0-100.0); MEAN CORPUSCULAR HGB 29.2 pG CALC (26.0-32.0); MEAN CORPUSCULAR HGB CONC 30.5 g/dL CAL (32.0-36.0); NEUT# 5.47 thou/uL (2.00-7.15); RED BLOOD COUNT 5.14 mill/uL (4.20-5.60); RED CELL DISTRI WIDTH 18.6 % (11.5-15.5)
[2020-05-07 12:26] LABS: URINE SQUAMOUS EPITHELIAL CELL FEW EPI/hpf (0-FEW); URINE TRICHOMONAS FEW hpf
[2020-05-07 12:41] LABS: ALKALINE PHOSPHATASE 113 u/l (38-126); BUN 6 mg/dL (7-17); BUN/CREATININE RATIO 9 (12-20 (CALC)); CARBON DIOXIDE 31 mmol/l (22-30); CHLORIDE 98 mmol/l (95-108); CREATININE 0.7 mg/dL (0.5-1.0); GFR > 60 ML/MIN (>=60 (CALC)); GFR FOR AFR.AMER. > 60 ML/MIN (>=60 (CALC)); LIPASE 48 u/l (23-300); SGOT/AST 46 u/l (14-36); SODIUM 136 mmol/l (137-146); TOTAL PROTEIN 7.7 g/dL (6.3-8.2)
[2020-05-07 12:49] LABS: ANION GAP 11 (6-22 (CALC)); POTASSIUM 3.7 mmol/l (3.5-5.1)
[2020-05-07] MEDS ORDERED: KEFLEX500 M1 PO ×2 (14:47)
== END 2020-05-07 15:30 | disposition home or self-care (01) ==
LOC: ED 11:28
DX: N39.0 Urinary tract infection, site not specified (principal); A64 Unspecified sexually transmitted disease; M16.12 Unilateral primary osteoarthritis, left hip; I10 Essential (primary) hypertension; K21.9 Gastro-esophageal reflux disease without esophagitis; G47.30 Sleep apnea, unspecified; E66.01 Morbid (severe) obesity due to excess calories; Z68.44 Body mass index [BMI] 60.0-69.9, adult
CPT/HCPCS: Q9967

== ENCOUNTER 2020-06-03 17:59 | Emergency (ER) | payer MEDICAID ==
[~2020-06-03] VITALS: Ht 162.6 cm; Wt 165.9 kg
[2020-06-03 19:35] LABS: URINE BILIRUBIN - DIPSTICK NEGATIVE (NEGATIVE); URINE BLOOD DIPSTICK NEGATIVE (NEGATIVE); URINE COLOR YELLOW; URINE GLUCOSE - DIPSTICK NEGATIVE (NEGATIVE); URINE KETONE NEGATIVE (NEGATIVE); URINE LEUK ESTERASE NEGATIVE (NEGATIVE); URINE NITRITE - DIPSTICK NEGATIVE (Negative); URINE PROTEIN - DIPSTICK NEGATIVE (NEG-TRACE)
[2020-06-03 19:36] LABS: HEMATOCRIT 48.2 % (37.0-47.0); HEMOGLOBIN 14.6 g/dl (12.0-16.0); IMMATURE GRANULOCYTES 0.4 % (0.0-5.0); MEAN CELL VOLUME 94.7 fL CALC (80.0-100.0); MEAN CORPUSCULAR HGB 28.7 pG CALC (26.0-32.0); MEAN CORPUSCULAR HGB CONC 30.3 g/dL CAL (32.0-36.0); NEUT# 5.46 thou/uL (2.00-7.15); RED BLOOD COUNT 5.09 mill/uL (4.20-5.60); RED CELL DISTRI WIDTH 17.6 % (11.5-15.5)
[2020-06-03 19:47] LABS: ALBUMIN 3.6 g/dL (3.2-5.0); ALKALINE PHOSPHATASE 116 u/l (38-126); ANION GAP 10 (6-22 (CALC)); BUN 8 mg/dL (7-17); BUN/CREATININE RATIO 11 (12-20 (CALC)); CARBON DIOXIDE 30 mmol/l (22-30); CHLORIDE 100 mmol/l (95-108); CREATININE 0.7 mg/dL (0.5-1.0); GFR > 60 ML/MIN (>=60 (CALC)); GFR FOR AFR.AMER. > 60 ML/MIN (>=60 (CALC)); POTASSIUM 3.1 mmol/l (3.5-5.1); SGOT/AST 47 u/l (14-36); SODIUM 136 mmol/l (137-146); TOTAL PROTEIN 7.8 g/dL (6.3-8.2)
[2020-06-03 19:50] LABS: BILIRUBIN, TOTAL 1.5 mg/dL (0.0-1.4)
[2020-06-03] MEDS ORDERED: FIORICET PO (21:10)
[2020-06-03 21:17] VITALS: BP 150/80
[2020-06-04] MEDS ORDERED: AMOXICILLIN500 MG PO (22:12)
[2020-06-04] MEDS ORDERED: PERCOCET 10/31 COMBO PO (22:12)
== END 2020-06-03 21:55 | disposition home or self-care (01) ==
LOC: ED 17:59
DX: R51 Headache (principal); I10 Essential (primary) hypertension; G47.30 Sleep apnea, unspecified; E66.01 Morbid (severe) obesity due to excess calories; Z99.81 Dependence on supplemental oxygen

== ENCOUNTER 2020-06-04 21:49 | Emergency (ER) | payer MEDICAID ==
[~2020-06-04] VITALS: Ht 162.6 cm; Wt 165.9 kg
[2020-06-04 21:49] VITALS: BP 150/83
[~2020-06-04 21:49] MED LIST changes: +FIORICET PO
[2020-06-04] MEDS ORDERED: PERCOCET 10/31 COMBO PO (22:12)
[2020-06-04] MEDS ORDERED: AMOXICILLIN500 MG PO (22:12)
== END 2020-06-04 22:30 | disposition home or self-care (01) ==
LOC: ED 21:49
DX: K04.7 Periapical abscess without sinus (principal); S02.5XXA Fracture of tooth (traumatic), initial encounter for closed fracture; I10 Essential (primary) hypertension; E66.01 Morbid (severe) obesity due to excess calories; G47.30 Sleep apnea, unspecified; X58.XXXA Exposure to other specified factors, initial encounter; Z99.81 Dependence on supplemental oxygen

== ENCOUNTER 2020-07-04 13:52 | Emergency (ER) | payer MEDICAID ==
[~2020-07-04] VITALS: Ht 162.6 cm; Wt 170.0 kg
[~2020-07-04 13:52] MED LIST changes: +PERCOCET 10/31 COMBO PO
[2020-07-04 14:32] LABS: HEMATOCRIT 49.9 % (37.0-47.0); IMMATURE GRANULOCYTES 0.2 % (0.0-5.0); MEAN CELL VOLUME 92.8 fL CALC (80.0-100.0); MEAN CORPUSCULAR HGB 27.9 pG CALC (26.0-32.0); MEAN CORPUSCULAR HGB CONC 30.1 g/dL CAL (32.0-36.0); NEUT# 4.37 thou/uL (2.00-7.15); RED BLOOD COUNT 5.38 mill/uL (4.20-5.60); RED CELL DISTRI WIDTH 19.2 % (11.5-15.5)
[2020-07-04 14:34] LABS: GFR > 60 ML/MIN (>=60 (CALC)); GFR FOR AFR.AMER. > 60 ML/MIN (>=60 (CALC))
[2020-07-04] MEDS ORDERED: NORVASC5 M1 PO (15:06)
[2020-07-04 15:11] LABS: URINE BLOOD DIPSTICK LARGE (NEGATIVE); URINE GLUCOSE - DIPSTICK NEGATIVE (NEGATIVE); URINE KETONE NEGATIVE (NEGATIVE); URINE LEUK ESTERASE TRACE (NEGATIVE); URINE PROTEIN - DIPSTICK NEGATIVE (NEG-TRACE)
[2020-07-04 15:13] LABS: URINE BILIRUBIN - DIPSTICK NEGATIVE (NEGATIVE); URINE COLOR AMBER; URINE NITRITE - DIPSTICK POSITIVE (Negative)
[2020-07-04 15:33] LABS: ALBUMIN 3.5 g/dL (3.2-5.0); ALKALINE PHOSPHATASE 85 u/l (38-126); ANION GAP 8 (6-22 (CALC)); BILIRUBIN, TOTAL 1.8 mg/dL (0.0-1.4); BUN 8 mg/dL (7-17); BUN/CREATININE RATIO 10 (12-20 (CALC)); CARBON DIOXIDE 34 mmol/l (22-30); CHLORIDE 96 mmol/l (95-108); CREATININE 0.8 mg/dL (0.5-1.0); GFR > 60 ML/MIN (>=60 (CALC)); GFR FOR AFR.AMER. > 60 ML/MIN (>=60 (CALC)); LIPASE 23 u/l (23-300); POTASSIUM 3.4 mmol/l (3.5-5.1); SGOT/AST 48 u/l (14-36); SODIUM 134 mmol/l (137-146); TOTAL PROTEIN 7.5 g/dL (6.3-8.2)
[2020-07-04 15:34] LABS: URINE BACTERIA MODERATE hpf; URINE SQUAMOUS EPITHELIAL CELL MODERATE EPI/hpf (0-FEW)
[2020-07-04] MEDS ORDERED: CEPHALEXIN500 M1 PO (16:27)
[2020-07-04 16:36] VITALS: BP 115/52
[2020-07-05] MEDS ORDERED: FLEXERIL PO (17:30)
[2020-07-05] MEDS ORDERED: ULTRAM50 M1 PO (17:30)
== END 2020-07-04 16:55 | disposition home or self-care (01) ==
LOC: ED 13:52
PROVIDERS: Family Medicine
DX: N39.0 Urinary tract infection, site not specified (principal); I10 Essential (primary) hypertension; G47.30 Sleep apnea, unspecified; E66.01 Morbid (severe) obesity due to excess calories; B96.20 Unspecified Escherichia coli [E. coli] as the cause of diseases classified elsewhere; Z99.81 Dependence on supplemental oxygen
CPT/HCPCS: Q9967

== ENCOUNTER 2020-07-05 15:58 | Emergency (ER) | payer MEDICAID ==
[~2020-07-05] VITALS: Ht 162.6 cm; Wt 170.0 kg
[~2020-07-05 15:58] MED LIST changes: +CEPHALEXIN500 M1 PO; +NORVASC5 M1 PO
[2020-07-05] MEDS ORDERED: ULTRAM50 M1 PO (17:30)
[2020-07-05] MEDS ORDERED: FLEXERIL PO (17:30)
[2020-07-05 17:35] VITALS: BP 119/67
== END 2020-07-05 18:00 | disposition home or self-care (01) ==
LOC: ED 15:58
DX: M54.42 Lumbago with sciatica, left side (principal); N39.0 Urinary tract infection, site not specified; R10.9 Unspecified abdominal pain; G89.29 Other chronic pain; I10 Essential (primary) hypertension; G47.30 Sleep apnea, unspecified; E66.01 Morbid (severe) obesity due to excess calories; Z99.81 Dependence on supplemental oxygen

== ENCOUNTER 2020-07-07 10:57 | Observation (INO) | payer MEDICAID ==
[~2020-07-07] VITALS: Ht 162.6 cm; Wt 162.4 kg
[~2020-07-07 10:57] MED LIST changes: +FLEXERIL PO
[2020-07-07 12:10] LABS: HEMOGLOBIN 13.4 g/dl (12.0-16.0); IMMATURE GRANULOCYTES 0.4 % (0.0-5.0); MEAN CELL VOLUME 93.8 fL CALC (80.0-100.0); MEAN CORPUSCULAR HGB 27.9 pG CALC (26.0-32.0); MEAN CORPUSCULAR HGB CONC 29.8 g/dL CAL (32.0-36.0); NEUT# 5.17 thou/uL (2.00-7.15); RED BLOOD COUNT 4.8 mill/uL (4.20-5.60); RED CELL DISTRI WIDTH 18.4 % (11.5-15.5)
[2020-07-07 12:26] LABS: ALBUMIN 3.2 g/dL (3.2-5.0); ALKALINE PHOSPHATASE 84 u/l (38-126); ANION GAP 11 (6-22 (CALC)); BILIRUBIN, TOTAL 1.7 mg/dL (0.0-1.4); BUN 9 mg/dL (7-17); BUN/CREATININE RATIO 10 (12-20 (CALC)); CARBON DIOXIDE 31 mmol/l (22-30); CHLORIDE 93 mmol/l (95-108); CREATININE 0.9 mg/dL (0.5-1.0); GFR > 60 ML/MIN (>=60 (CALC)); GFR FOR AFR.AMER. > 60 ML/MIN (>=60 (CALC)); SGOT/AST 30 u/l (14-36); SODIUM 132 mmol/l (137-146); TOTAL PROTEIN 6.7 g/dL (6.3-8.2)
[2020-07-07 16:24] LABS: URINE BLOOD DIPSTICK SMALL (NEGATIVE); URINE COLOR YELLOW; URINE GLUCOSE - DIPSTICK NEGATIVE (NEGATIVE); URINE KETONE NEGATIVE (NEGATIVE); URINE LEUK ESTERASE NEGATIVE (NEGATIVE); URINE NITRITE - DIPSTICK NEGATIVE (Negative); URINE PH 6.5 (4.5-8.0); URINE PROTEIN - DIPSTICK NEGATIVE (NEG-TRACE); URINE SPECIFIC GRAVITY 1.015
[2020-07-07 16:27] VITALS: BP 95/60
[2020-07-07 16:28] LABS: URINE BILIRUBIN - DIPSTICK NEGATIVE (NEGATIVE)
[2020-07-07 16:35] LABS: URINE SQUAMOUS EPITHELIAL CELL MODERATE EPI/hpf (0-FEW); URINE WBC 0-2 WBC/hpf (0-5)
[2020-07-07 19:00] VITALS: BP 92/42
[2020-07-08] VITALS: BP 110/76
[2020-07-08 04:00] VITALS: BP 104/74
[2020-07-08 07:35] VITALS: BP 115/74
[2020-07-08 10:30] VITALS: BP 111/76
[2020-07-08 15:00] VITALS: BP 126/81
[2020-07-08 19:00] VITALS: BP 122/82
[2020-07-09] VITALS: BP 117/74
[2020-07-09 04:40] LABS: HEMATOCRIT 44.9 % (37.0-47.0); HEMOGLOBIN 13.1 g/dl (12.0-16.0); IMMATURE GRANULOCYTES 0.8 % (0.0-5.0); MEAN CELL VOLUME 96.4 fL CALC (80.0-100.0); MEAN CORPUSCULAR HGB 28.1 pG CALC (26.0-32.0); MEAN CORPUSCULAR HGB CONC 29.2 g/dL CAL (32.0-36.0); NEUT# 6.47 thou/uL (2.00-7.15); RED BLOOD COUNT 4.66 mill/uL (4.20-5.60)
[2020-07-09 04:56] LABS: ALBUMIN 3.2 g/dL (3.2-5.0); ALKALINE PHOSPHATASE 89 u/l (38-126); ANION GAP 9 (6-22 (CALC)); BUN 7 mg/dL (7-17); BUN/CREATININE RATIO 11 (12-20 (CALC)); CARBON DIOXIDE 30 mmol/l (22-30); CHLORIDE 100 mmol/l (95-108); CREATININE 0.7 mg/dL (0.5-1.0); GFR > 60 ML/MIN (>=60 (CALC)); GFR FOR AFR.AMER. > 60 ML/MIN (>=60 (CALC)); POTASSIUM 3.5 mmol/l (3.5-5.1); SGOT/AST 26 u/l (14-36); SODIUM 136 mmol/l (137-146); TOTAL PROTEIN 6.6 g/dL (6.3-8.2)
[2020-07-09 05:00] VITALS: BP 132/78
[2020-07-09 05:05] LABS: BILIRUBIN, TOTAL 0.9 mg/dL (0.0-1.4)
[2020-07-09 08:00] VITALS: BP 123/73
[2020-07-09 11:01] VITALS: BP 127/80
[2020-07-09 15:40] VITALS: BP 136/88
[2020-07-09 19:00] VITALS: BP 114/68
[2020-07-10] VITALS: BP 125/76
[2020-07-10 03:50] VITALS: BP 135/82
[2020-07-10 08:00] VITALS: BP 142/87
[2020-07-10] MEDS ORDERED: ULTRAM50 M1 PO (08:18)
[2020-07-10] MEDS ORDERED: MEDDOSEPAK PO (08:18)
[2020-07-10 13:08] VITALS: BP 124/60
[2020-07-10 15:09] VITALS: BP 120/67
== END 2020-07-10 18:40 ==
LOC: ED 10:57 → ED-I 13:02 → ED 13:18 → MS2 13:19
PROVIDERS: Physician Assistant; ADMIT Internal Medicine; ATTEND Internal Medicine
DX: M89.49 Other hypertrophic osteoarthropathy, multiple sites (principal); I95.9 Hypotension, unspecified; E87.1 Hypo-osmolality and hyponatremia; E87.6 Hypokalemia; E86.0 Dehydration; J96.10 Chronic respiratory failure, unspecified whether with hypoxia or hypercapnia; I10 Essential (primary) hypertension; E66.01 Morbid (severe) obesity due to excess calories; G47.33 Obstructive sleep apnea (adult) (pediatric); Z68.44 Body mass index [BMI] 60.0-69.9, adult; K21.9 Gastro-esophageal reflux disease without esophagitis; E78.5 Hyperlipidemia, unspecified; Z79.01 Long term (current) use of anticoagulants; Z86.711 Personal history of pulmonary embolism; Z99.81 Dependence on supplemental oxygen; Z20.828 Contact with and (suspected) exposure to other viral communicable diseases
CPT/HCPCS: G0378

== ENCOUNTER 2020-11-03 13:28 | Emergency (ER) | payer MEDICAID ==
[~2020-11-03] VITALS: Ht 162.6 cm; Wt 159.0 kg
[~2020-11-03 13:28] MED LIST changes: +MEDDOSEPAK PO
[2020-11-03 14:25] LABS: HEMATOCRIT 49.6 % (37.0-47.0); HEMOGLOBIN 14.8 g/dl (12.0-16.0); IMMATURE GRANULOCYTES 0.2 % (0.0-5.0); MEAN CELL VOLUME 91.9 fL CALC (80.0-100.0); MEAN CORPUSCULAR HGB 27.4 pG CALC (26.0-32.0); MEAN CORPUSCULAR HGB CONC 29.8 g/dL CAL (32.0-36.0); NEUT# 4.55 thou/uL (2.00-7.15); RED BLOOD COUNT 5.4 mill/uL (4.20-5.60)
[2020-11-03 14:37] LABS: ALBUMIN 3.7 g/dL (3.2-5.0); ALKALINE PHOSPHATASE 79 u/l (38-126); AMYLASE 37 u/l (30-110); ANION GAP 11 (6-22 (CALC)); BILIRUBIN, TOTAL 1.9 mg/dL (0.0-1.4); BUN 6 mg/dL (7-17); BUN/CREATININE RATIO 7 (12-20 (CALC)); CARBON DIOXIDE 30 mmol/l (22-30); CHLORIDE 101 mmol/l (95-108); CREATININE 0.9 mg/dL (0.5-1.0); GFR > 60 ML/MIN (>=60 (CALC)); GFR FOR AFR.AMER. > 60 ML/MIN (>=60 (CALC)); LIPASE 38 u/l (23-300); POTASSIUM 3.4 mmol/l (3.5-5.1); SGOT/AST 37 u/l (14-36); SODIUM 138 mmol/l (137-146); TOTAL PROTEIN 8.2 g/dL (6.3-8.2)
[2020-11-03 14:43] LABS: ACT PARTIAL THROMBO TIME 27.4 SECONDS (20.0-32.5); INTERNATIONAL NORMALIZED RATIO 1.2 RATIO (0.7-1.3); PROTHROMBIN TIME 12.2 SECONDS (9.0-12.5)
[2020-11-03 15:07] LABS: URINE BILIRUBIN - DIPSTICK NEGATIVE (NEGATIVE); URINE BLOOD DIPSTICK LARGE (NEGATIVE); URINE COLOR YELLOW; URINE GLUCOSE - DIPSTICK NEGATIVE (NEGATIVE); URINE KETONE NEGATIVE (NEGATIVE); URINE PROTEIN - DIPSTICK 30 mg/dL (NEG-TRACE); URINE SPECIFIC GRAVITY 1.025
[2020-11-03 15:24] LABS: URINE LEUK ESTERASE SMALL (NEGATIVE); URINE NITRITE - DIPSTICK POSITIVE (Negative)
[2020-11-03 15:29] LABS: URINE BACTERIA FEW hpf; URINE MUCUS FEW hpf (NONE-FEW); URINE RBC 0-2 RBC/hpf (0-5); URINE SQUAMOUS EPITHELIAL CELL MANY EPI/hpf (0-FEW)
[2020-11-03] MEDS ORDERED: ZOFRAN4 MG/TAB PO (16:19)
[2020-11-03] MEDS ORDERED: KEFLEX500 MG PO (16:19)
[2020-11-03 17:20] VITALS: BP 110/73
== END 2020-11-03 17:26 | disposition home or self-care (01) ==
LOC: ED 13:28
DX: N39.0 Urinary tract infection, site not specified (principal); E86.0 Dehydration; I10 Essential (primary) hypertension; K21.9 Gastro-esophageal reflux disease without esophagitis; E66.01 Morbid (severe) obesity due to excess calories; G47.30 Sleep apnea, unspecified; B96.20 Unspecified Escherichia coli [E. coli] as the cause of diseases classified elsewhere; Z20.822 Contact with and (suspected) exposure to COVID-19
CPT/HCPCS: Q9967

== ENCOUNTER 2020-11-22 03:04 | Emergency (ER) | payer MEDICAID ==
[~2020-11-22] VITALS: Ht 162.6 cm; Wt 164.7 kg
[~2020-11-22 03:04] MED LIST changes: +KEFLEX500 MG PO; +ZOFRAN4 MG/TAB PO
[2020-11-22 04:38] VITALS: BP 101/56
== END 2020-11-22 06:15 | disposition home or self-care (01) ==
LOC: ED 03:04
DX: S76.012A Strain of muscle, fascia and tendon of left hip, initial encounter (principal); S76.011A Strain of muscle, fascia and tendon of right hip, initial encounter; S83.92XA Sprain of unspecified site of left knee, initial encounter; S83.91XA Sprain of unspecified site of right knee, initial encounter; I10 Essential (primary) hypertension; K21.9 Gastro-esophageal reflux disease without esophagitis; E66.01 Morbid (severe) obesity due to excess calories; W01.0XXA Fall on same level from slipping, tripping and stumbling without subsequent striking against object, initial encounter; Y92.009 Unspecified place in unspecified non-institutional (private) residence as the place of occurrence of the external cause

== ENCOUNTER 2020-12-04 23:16 | Inpatient (IN) | payer MEDICAID ==
[~2020-12-04] VITALS: Ht 162.6 cm; Wt 162.0 kg
--- NOTE | 2020-12-04 23:20 | NUR ---
PT WHEELED TO ROOM # 14 FOR BEDSIDE TRIAGE. ATTEMPTED TO PROVIDE URINE SAMPLE.
--- NOTE | 2020-12-04 23:45 | NUR ---
PT REFUSED COVID SWAB TESTING. DR PURI NOTIFIED.
--- NOTE | 2020-12-05 00:05 | NUR ---
PT MEDICATED PER ORDER. TOLERATED ADMINISTRATION WELL. ADVISED OF WAIT TIEM FOR RESULTS. VEARLIZED UNDERSTANDIGN. DENIES ANY NEEDS. CALL LGIHT WTIHIN REACH. BEDSIDE.
[2020-12-05 00:16] LABS: HEMATOCRIT 51.1 % (37.0-47.0); HEMOGLOBIN 15.4 g/dl (12.0-16.0); IMMATURE GRANULOCYTES 0.3 % (0.0-5.0); MEAN CORPUSCULAR HGB 27.1 pG CALC (26.0-32.0); MEAN CORPUSCULAR HGB CONC 30.1 g/dL CAL (32.0-36.0); NEUT# 1.99 thou/uL (2.00-7.15); RED BLOOD COUNT 5.68 mill/uL (4.20-5.60); RED CELL DISTRI WIDTH 19.6 % (11.5-15.5)
[2020-12-05 00:35] LABS: ACT PARTIAL THROMBO TIME 26.6 SECONDS (20.0-32.5); ALBUMIN 4.4 g/dL (3.2-5.0); ALKALINE PHOSPHATASE 115 u/l (38-126); AMYLASE 38 u/l (30-110); ANION GAP 18 (6-22 (CALC)); BILIRUBIN, TOTAL 1.4 mg/dL (0.0-1.4); BUN 7 mg/dL (7-17); BUN/CREATININE RATIO 8 (12-20 (CALC)); CARBON DIOXIDE 26 mmol/l (22-30); CHLORIDE 95 mmol/l (95-108); CREATININE 0.9 mg/dL (0.5-1.0); ETHYL ALCOHOL 112 mg/dl (0-30); GFR > 60 ML/MIN (>=60 (CALC)); GFR FOR AFR.AMER. > 60 ML/MIN (>=60 (CALC)); INTERNATIONAL NORMALIZED RATIO 1.2 RATIO (0.7-1.3); LIPASE 57 u/l (23-300); POTASSIUM 3.8 mmol/l (3.5-5.1); PROTHROMBIN TIME 11.8 SECONDS (9.0-12.5); SGOT/AST 58 u/l (14-36); SODIUM 135 mmol/l (137-146); TOTAL PROTEIN 9.2 g/dL (6.3-8.2)
--- NOTE | 2020-12-05 01:44 | NUR ---
TO BSC WITH STANDBY ASSIST-TOLERATED WELL. VOIDED 500ML STRAW URINE WITH EASE. SPECIMEN OBTAINED AND TO LAB
--- NOTE | 2020-12-05 02:01 | NUR ---
REPEAT LACTIC DRAWN. IVF RECONNECTED ALONG WITH OTHER EQUIP.
[2020-12-05 02:10] LABS: URINE BILIRUBIN - DIPSTICK NEGATIVE (NEGATIVE); URINE BLOOD DIPSTICK MODERATE (NEGATIVE); URINE COLOR YELLOW; URINE GLUCOSE - DIPSTICK NEGATIVE (NEGATIVE); URINE KETONE NEGATIVE (NEGATIVE); URINE LEUK ESTERASE NEGATIVE (NEGATIVE); URINE NITRITE - DIPSTICK POSITIVE (Negative); URINE PH 5.5 (4.5-8.0); URINE PROTEIN - DIPSTICK NEGATIVE (NEG-TRACE); URINE SPECIFIC GRAVITY 1.015; URINE UROBILINOGEN - DIPSTICK 0.2 E.U./dL (0.2)
[2020-12-05 02:16] LABS: URINE BACTERIA MANY hpf; URINE EPITHELIAL CELLS FEW EPI/hpf (0-FEW)
--- NOTE | 2020-12-05 02:45 | NUR ---
IN ROOM TO MEDICATED PT FOR PAIN. PT SLEEPING SOUNDLY ON STRETCHER WITH LIGHTS DIMMED AND AWAKEN FOR MEDICATION. PT STATES " I NEED TO FART, I NEED TO FART REALLY BAD." ENCOURAGED PT TO PASS FLATUS IF ABLE TO. PT REPOSITIONED IN BED AND LAYING ON RIGHT SIDE. PT STATE "I JUST FEEL LIKE I NEED TO FART MY STOMACH IS HURTING." PT MEDICATED FOR REPORTED PAIN WITH DILAUDID AND INSTRUCTED ON IMPORTANCE IN STAYING IN BED AND TO NOTIFY NURSING STAFF FOR ANY NEEDS. SECOND LITER OF NS INTIATED AND IV ZOSYN PER ORDER. VERBALIZED UNDERSTANDING. PT LEAVING HOME. MONITOR IN PLACE, O2 @ 3L VIA NC. CALL LIGHT PROVIDED. LIGHTS DIMMED FOR COMFORT.
--- NOTE | 2020-12-05 03:00 | NUR ---
PT RESTING ON STRETCHER WITH EYES CLOSED. O2 IN PLACE @ 3L VIA NC. NO EMESIS NOTED SINCE ARRIVAL. TOLERTED DELI DEPARTMENT MANAGER WELL.
--- NOTE | 2020-12-05 03:25 | NUR ---
PT REPORT GIVEN TO NABILA MILLER
--- NOTE | 2020-12-05 03:35 | NUR ---
Admission Note Report Given to: PAUL Transported by: Wheelchair X Stretcher Transported with: X Nurse Transporter X Patent IV X O2 X Sterile Processing Technologist Location: ICU X [facility] PT TRANSPORTED TO MS RM # [id number] VIA STRETCHER WITH O2/TELE IN PLACE IN STABLE CONDITION. PAUL RN BEDSIDE WITH PT.
[2020-12-05 03:40] VITALS: BP 108/59
[2020-12-05 08:53] VITALS: BP 106/61
--- NOTE | 2020-12-05 08:54 | NUR ---
RECIEVED REPORT FROM NABILA MILLER. PT RESTING IN SEMI FOWLERS POSITION. PT IS A/O X3. ASSESSMENT AND VITALS COMPLETED. BP 106/61, HR 93, O2 93% ON 4L NC. RESPIRATIONS ARE EVEN AND UNLABORED WITH NO DISTRESS NOTED. HEART RHYTHM NORMAL WITH TELE MONITORING IN PLACE, SR PER ER MONITORING. BOWEL SOUND SARE ACTIVE IN ALL QUADRANTS. RADIAL AND PEDAL PULSES ARE STRONG. #22G IN LH INFUSING WITH IVF PER ORDER, SITE APPEARS HEALTHY AND PATENT. PT COMPLAINS OF 10/10 ABD CRAMPING. PT TO BE MEDICATED PER EMAR. SKIN IS WARM AND INTACT. PT DENIES OF ANY OTHER PAINS OR DISCOMFORTS. ALL SAFETY PRECAUTIONS ARE IN PLACE. WILL CONTINUE TO MONITOR.
--- NOTE | 2020-12-05 09:48 | NUR ---
DR ADAIR AT BEDSIDE.
[2020-12-05 12:00] VITALS: BP 94/63
--- NOTE | 2020-12-05 12:00 | NUR ---
PT SLEEPING IN SEMI FOWLERS POSITION. RESPIRATIONS ARE EVEN AND UNLABORED ON 4L NC. IVF INFUSING PER ORDER, SITE APPEARS HEALTHY AND PATENT. TELE MONITORING IN PLACE. NO SIGNS OF ANY PAIN OR DISCOMFORTS. ALL SAFTEY PRECAUTIONS ARE IN PLACE WITH CALL LIGHT IN REACH. WILL CONTINUE TO MONITOR.
[2020-12-05 16:00] VITALS: BP 101/56
--- NOTE | 2020-12-05 16:35 | NUR ---
PT COMPLAINS OF 10/10 ABD PAIN.PT MEDICATED PER EMAR. RESPIRATIONS ARE EVEN AND UNLABORED ON 4L NC. TELE MONITORING IN PLACE. PT DENIES OF ANY OTHER NEEDS AT THIS TIME. ALL SAFETY PRECAUTIONS ARE IN PLACE. WILL CONTINUE TO MONITOR.
[2020-12-05 19:00] VITALS: BP 102/53
[2020-12-06] VITALS (7 sets, daily range): BP systolic 95–122; BP diastolic 52–79
--- NOTE | 2020-12-06 00:24 | NUR ---
Patient complained of abdominal pain as 10 on numeric pain scale, Morphine and Bentyl administered. Patient repositioned to right side as she stated this position helps with comfort. No other concerns expressed at this time, call light in reach, will follow up.
[2020-12-06 05:15] LABS: MEAN CORPUSCULAR HGB 27.4 pG CALC (26.0-32.0); MEAN CORPUSCULAR HGB CONC 29.5 g/dL CAL (32.0-36.0); RED BLOOD COUNT 4.7 mill/uL (4.20-5.60); RED CELL DISTRI WIDTH 19.1 % (11.5-15.5)
[2020-12-06 05:33] LABS: HEMATOCRIT 43.7 % (37.0-47.0); HEMOGLOBIN 12.9 g/dl (12.0-16.0)
[2020-12-06 05:38] LABS: ANION GAP 8 (6-22 (CALC)); BUN 8 mg/dL (7-17); BUN/CREATININE RATIO 9 (12-20 (CALC)); CARBON DIOXIDE 29 mmol/l (22-30); CHLORIDE 99 mmol/l (95-108); CREATININE 0.8 mg/dL (0.5-1.0); GFR > 60 ML/MIN (>=60 (CALC)); GFR FOR AFR.AMER. > 60 ML/MIN (>=60 (CALC)); MAGNESIUM 1.9 mg/dL (1.6-2.3); POTASSIUM 3.5 mmol/l (3.5-5.1); SODIUM 133 mmol/l (137-146)
--- NOTE | 2020-12-06 07:15 | NUR ---
PT REPORT RECEIVED FROM NIGHT NURSERAMIRO.
--- NOTE | 2020-12-06 07:54 | NUR ---
PT FOUND AT BEDSIDE SLEEPING;PT AROUSED TO VERBAL STIMULI;PT IS ALERT & ORIENTED X3;VITAL SIGNS AND ASSESSMENT WERE COMPLETED;VS WERE WIHIN NORMAL LIMITS WITH THE EXCEPTION OF O2 AT 91%;PT IS ON O2 VIA NC @3L AT THIS TIME AND IT COINCIDES WITH THE READINGS IN THE PAST;TELE IS IN PLACE WITH A READING OF SR @93BPM;#22G IV IN RT HAND WITH NS@125ML/HR;IV SITE APPEARS FREE OF COMPLICATIONS;SKIN INTACT;LUNG SOUNDS WERE CLEAR, BUT DIMINSHED IN ALL ADAMES; RESPIRATIONS ARE EVEN AND UNLABORED;HEART SOUNDS ARE REGULAR IN RATE AND RHYTHM;PT REPORTS PAIN IN ABDOMEN OF 10/10;PT MEDICATED;SAFETY PRECAUTIONS ARE IN PLACE;CALL LIGHT WITHIN REACH;BED IN LOWEST POSITION;WILL CONTINUE TO MONITOR.
--- NOTE | 2020-12-06 12:23 | NUR ---
PT WAS FOUND RESTING IN BED;PT HAD JUST RETURNED TO BED FROM BEDSIDE COMMODE;PT VOIDED 250CC ORANGE URINE WITH NO ISSUES;PT REPORTS ABDOMINAL PAIN OF 9/10;PT MEDICATED WITH BENTYL, MORPHINE IS NOT DUE YET;TELE IS IN PLACE READING SR@92 BP;O2 @3L VIA NC IS IN PLACE;SAFETY PRECAUTIONS IN PLACE;CALL LIGHT WITHIN REACH;BED IN LOWEST POSITION;WILL CONTINUE.
--- NOTE | 2020-12-06 16:30 | NUR ---
PT WAS FOUND RESTING IN BED;PT WAS REPORTING PAIN 9/10 IN ABDOMEN;PT MEDICATED;TELE IN PLACE READING SR @90BPM;PT IS ON 3L O2 VIA NC WITH SATS @92%;#22G IV IN LEFT HAND IS RUNNING NS@50 ML/HR AND IS FREE OF COMPLICATIONS;SAFETY PRECAUTIONS IN PLACE; WILL CONTINUE TO MONITOR.
--- NOTE | 2020-12-06 20:04 | NUR ---
Oxygen saturation noted at 66% on 3L/NC upon tech taking vitals. Oxygen increased to 4L/NC, saturation increased to 87%. Patient awake, alert and oriented; asymptomatic. Nurse pratitioner notified, orders given for ABG stat. ABG obtained by respiratory therapist. Oxygen supply changed to high flow 10L/NC, response to therapy oxygen saturation elle to 91%.
--- NOTE | 2020-12-06 20:28 | NUR ---
ABGs called to [facility]. PH 7.38, PCO 54.1, HCO3 31.5. Order received for 1 view portable chest xray stat. Saturation remains at 91% 10L/NC high flow.
[2020-12-07 04:05] VITALS: BP 113/68
[2020-12-07 05:23] LABS: HEMATOCRIT 41.9 % (37.0-47.0); HEMOGLOBIN 12.4 g/dl (12.0-16.0); IMMATURE GRANULOCYTES 0.4 % (0.0-5.0); MEAN CELL VOLUME 92.7 fL CALC (80.0-100.0); MEAN CORPUSCULAR HGB 27.4 pG CALC (26.0-32.0); MEAN CORPUSCULAR HGB CONC 29.6 g/dL CAL (32.0-36.0); NEUT# 3.37 thou/uL (2.00-7.15); RED BLOOD COUNT 4.52 mill/uL (4.20-5.60); RED CELL DISTRI WIDTH 18.7 % (11.5-15.5)
[2020-12-07 05:57] LABS: ALKALINE PHOSPHATASE 68 u/l (38-126); ANION GAP 8 (6-22 (CALC)); BILIRUBIN, TOTAL 1.6 mg/dL (0.0-1.4); BUN 9 mg/dL (7-17); BUN/CREATININE RATIO 11 (12-20 (CALC)); CARBON DIOXIDE 30 mmol/l (22-30); CHLORIDE 97 mmol/l (95-108); CREATININE 0.8 mg/dL (0.5-1.0); GFR > 60 ML/MIN (>=60 (CALC)); GFR FOR AFR.AMER. > 60 ML/MIN (>=60 (CALC)); POTASSIUM 3.2 mmol/l (3.5-5.1); SGOT/AST 27 u/l (14-36); SODIUM 133 mmol/l (137-146)
[2020-12-07 06:18] LABS: ALBUMIN 2.9 g/dL (3.2-5.0); C-REACTIVE PROTEIN 18.8 mg/dL (0-0.9); TOTAL PROTEIN 6.5 g/dL (6.3-8.2)
[2020-12-07 08:05] VITALS: BP 150/85
--- NOTE | 2020-12-07 08:05 | NUR ---
ASSESSMENT IS COMPLETED: IV SITE IS FREE FROM REDNESS OR EDEMA. HR IS REG,PULSES RE STRONG X4, ABD IS SOFT WITH ACTIVE BS. BREATH SOUNDS ARE CLEAR,BILATERALLY. TELE MONITOR IN PLAC E.
[2020-12-07 10:30] VITALS: BP 114/64
--- NOTE | 2020-12-07 12:45 | NUR ---
PT IS RELAXING IN BED WITH NO DISTRESS NOTED. TOOK ALL THE CONTRAST WITHOUT DIFFICULTY. IV SITE IS FREE FROM REDNESS OR EDEMA.
--- NOTE | 2020-12-07 14:05 | NUR ---
PT TRANSPORTED TO HAVE CT COMPLETD VIA WC WITH STAFF.
[2020-12-07 15:00] VITALS: BP 128/68
--- NOTE | 2020-12-07 15:18 | NUR ---
FAMILY CALLING AND INQUIRING IF THE PT WILL BE RELEASED TODAY. NO ORDERS AT THIS TIME. WAITING FOR RESULTS.
[2020-12-07 19:10] VITALS: BP 109/56
--- NOTE | 2020-12-07 20:01 | NUR ---
PT MEDICATED ORDERS PROVIDE AND ASSESSMENT COMPLETED AT THIS TIME. PT ALSO REPORTS PAIN 10/10 IN MID-UPPER ABD WHEN SHE MOVES. HYPO BOWEL SOUNDS TO UPPER AND LOWER R.QUADRANTS. PT REPORTS HAVING MULTIPLE LOOSE STOOL/REFUSED STOOL SOFTENER AND DULCOLAX AT THIS TIME. MEDICATED FOR PAIN. PT LEFT SITTING ON SIDE OF THE BED WITH CALL LIGHT W/IN REACH. I INSTRUCTED HER TO CALL ANY NEEDS OF ASSISTANCE ARISE, VERBALIZED UNDERSTANDING.
--- NOTE | 2020-12-07 22:55 | NUR ---
PT APPEARS TO BE SLEEPING, NO S/O DISTRESS NOTED.
[2020-12-08 00:20] VITALS: BP 114/78
--- NOTE | 2020-12-08 00:59 | NUR ---
PT IS AWAKE, DENIES ANY NEEDS AT THIS TIME.
[2020-12-08 03:50] VITALS: BP 110/66
--- NOTE | 2020-12-08 04:06 | NUR ---
IVF REPLENISHED AT THIS TIME. PT ASKED FOR ADDITIONAL JANA CRACKERS/PROVIDED. DENIES ANY OTHER NEEDS AT THIS TIME.
[2020-12-08 05:18] LABS: HEMATOCRIT 44.1 % (37.0-47.0); HEMOGLOBIN 12.8 g/dl (12.0-16.0); MEAN CELL VOLUME 93.4 fL CALC (80.0-100.0); MEAN CORPUSCULAR HGB 27.1 pG CALC (26.0-32.0); RED BLOOD COUNT 4.72 mill/uL (4.20-5.60); RED CELL DISTRI WIDTH 18.7 % (11.5-15.5)
[2020-12-08 05:44] LABS: ANION GAP 10 (6-22 (CALC)); BUN 9 mg/dL (7-17); BUN/CREATININE RATIO 12 (12-20 (CALC)); CARBON DIOXIDE 32 mmol/l (22-30); CHLORIDE 95 mmol/l (95-108); CREATININE 0.8 mg/dL (0.5-1.0); GFR > 60 ML/MIN (>=60 (CALC)); GFR FOR AFR.AMER. > 60 ML/MIN (>=60 (CALC)); MAGNESIUM 2.3 mg/dL (1.6-2.3); POTASSIUM 3.3 mmol/l (3.5-5.1); SODIUM 134 mmol/l (137-146)
[2020-12-08 08:05] VITALS: BP 122/62
--- NOTE | 2020-12-08 08:05 | NUR ---
ASSESSMENT IS COMPLETED: IV SITE IS FREE FROM REDNESS OR EDEMA. HR IS REG,PULSES ARE STRONG X4, ABD IS SOFT WITH ACTIVE BS. BREATH SOUNDS ARE CLEAR O2 @ 8 LITERS WITH NC. ENCOURAGING PT TO SIT IN THE CHAIR INSTEAD OF THE BED. STATED" I DIDN'T SLEEP WELL LAST NIGHT".WILL DECREASE HER O2 FROM 8 TO 6 SATS ARE 96%,
[2020-12-08 10:30] VITALS: BP 111/69
--- NOTE | 2020-12-08 12:30 | NUR ---
PT IS RELAXING IN BED, IV SITE IS FREE FROM REDNESS OR EDEMA. CONTINUE TO OSBERVE AND MONITOR.
[2020-12-08 15:00] VITALS: BP 100/66
--- NOTE | 2020-12-08 16:30 | NUR ---
PT IS RELAXING IN BED WITH NO DISTRESS NOTED. IV SITE IS FREE FROM REDNESS OR EDEMA.
[2020-12-08 20:00] VITALS: BP 118/65
--- NOTE | 2020-12-08 22:07 | NUR ---
SITTING UP IN BED WATCHING TV. OXYGEN SATURATION 97% ON 6L/NC HIGH FLOW, OXYGEN DECREASED TO 4L/NC. WILL CONTINUE TO MONITOR. CALL LIGHT IN REACH, BED IN LOW POSITION AND LOCKED. NO DISTRESSED NOTED AT THIS TIME.
--- NOTE | 2020-12-08 23:04 | NUR ---
Late Entry 2219 oxygen saturation re-assessed, saturation fluctuate between 89 and 92%. Increased oxygen back to 6L/NC, saturation immediately improved to 94-95%.
[2020-12-09] VITALS: BP 120/67
--- NOTE | 2020-12-09 00:59 | NUR ---
RESTING QUEITLY IN BED. NO DISTRESS NOTED AT THIS TIME. CALL LIGHT WITHIN REACH
[2020-12-09 04:00] VITALS: BP 109/63
--- NOTE | 2020-12-09 04:39 | NUR ---
SECOND ATTEMPT TO WEAN PATIENT. OXYGEN SATURATION 96% ON 6L/NC, DECREASED O2 TO 5L/NC. WILL CONTINUE TO MONITOR.
--- NOTE | 2020-12-09 04:57 | NUR ---
OXYGEN SATURATION 92-93% ON 5L/NC HIGH FLOW
--- NOTE | 2020-12-09 06:17 | NUR ---
PATIENT RESTING QUIETLY IN BED. O2 SATURATION 91-93% ON 5L/NC
[2020-12-09 07:30] VITALS: BP 110/63
--- NOTE | 2020-12-09 07:30 | NUR ---
PATIENT LAYING IN BED AT THIS TIME. PATIENT DENIES ANY PAIN OR NEEDS. RN ASSESSEMENT DONE AT THIS TIME. PATIENT LUNG SOUNDS ARE DIMINISHED IN UPPER/LOWER LEFT LUNG ADAMES AND UPPER RIGHT. PATIENT IS CURRENTLY ON 5L OF HIGH-FLOW 02 AND HER CURRENT SPO2 IS 97%. SIDERAILS ARE UP AND CALL LIGHT IS WITHIN REACH.
[2020-12-09 10:30] VITALS: BP 117/60
--- NOTE | 2020-12-09 12:00 | NUR ---
PATIENT SITTING UP IN BED EATING LUNCH AT THIS TIME. PATIENT DENIES ANY NEEDS AND DENIES ANY PAIN AT THIS TIME. SIDERAILS ARE UP X2 CALL LIGHT IS WITHIN REACH. PATIENT REMAINS ON HI-FLOW O2 AT 5 LITERS AND DENIES ANY SHORTNESS OF BREATH.
[2020-12-09 15:00] VITALS: BP 109/68
--- NOTE | 2020-12-09 15:59 | NUR ---
PATIENT LAYING IN BED AT THIS TIME. PATIENT DENIES ANY NEEDS AND OR PAIN. PATIENT REMAINS ON HI-FLOW O2 AT 5 LITERS AT THIS TIME. CALL LIGHT IS WITHIN REACH SIDERAILS ARE UP X2.
[2020-12-09 19:00] VITALS: BP 141/85
--- NOTE | 2020-12-09 23:09 | NUR ---
PATIENT ON HIGH FLOW OXYGEN @ 5L/NC, SATURATION 97%. OXYGEN DECREASED TO 4L/NC SATURATION CURRENTLY 92%
[2020-12-10 00:14] VITALS: BP 132/76
[2020-12-10 04:05] VITALS: BP 112/68
[2020-12-10 05:31] LABS: HEMATOCRIT 45.5 % (37.0-47.0); HEMOGLOBIN 13.4 g/dl (12.0-16.0); IMMATURE GRANULOCYTES 0.2 % (0.0-5.0); MEAN CELL VOLUME 90.8 fL CALC (80.0-100.0); MEAN CORPUSCULAR HGB 26.7 pG CALC (26.0-32.0); MEAN CORPUSCULAR HGB CONC 29.5 g/dL CAL (32.0-36.0); NEUT# 4.53 thou/uL (2.00-7.15); RED BLOOD COUNT 5.01 mill/uL (4.20-5.60); RED CELL DISTRI WIDTH 18.7 % (11.5-15.5)
[2020-12-10 06:12] LABS: ALBUMIN 3.4 g/dL (3.2-5.0); ALKALINE PHOSPHATASE 72 u/l (38-126); BUN 11 mg/dL (7-17); BUN/CREATININE RATIO 16 (12-20 (CALC)); CARBON DIOXIDE 29 mmol/l (22-30); CHLORIDE 97 mmol/l (95-108); CREATININE 0.7 mg/dL (0.5-1.0); GFR > 60 ML/MIN (>=60 (CALC)); GFR FOR AFR.AMER. > 60 ML/MIN (>=60 (CALC)); SGOT/AST 31 u/l (14-36); SODIUM 134 mmol/l (137-146); TOTAL PROTEIN 7.6 g/dL (6.3-8.2)
[2020-12-10 06:13] LABS: ANION GAP 12 (6-22 (CALC))
[2020-12-10 08:30] VITALS: BP 162/80
--- NOTE | 2020-12-10 08:30 | NUR ---
PATIENT RESTING THE BED, AXOX3. IV INFUSING, PATIENT IS USING THE BEDSIDE COMMODE. O2 NC INPLACE, NO RESP DISTRESS NOTED AT THIS TIME. PATIENT STATES SHE IS NOT IN ANY PAIN AT THIS TIME. REPOSITIONED FOR COMFORT, SIDE RAILS UP CALL LIGHT IN REACH, ALL SAFTY MEASURES IN PLACE. WILL CONTINUE TO MONITOR THE PATIENT.
[2020-12-10 11:41] VITALS: BP 112/51
--- NOTE | 2020-12-10 12:15 | NUR ---
SITTING UP IN THE BED EATING LUNCH. NO RESP DISTRESS NOTED AT THIS TIME. WILL CONTINUE TO MONIOTR THE PATIENT. ALL SAFTY MEASURES IN PLACE.
[2020-12-10 14:30] VITALS: BP 122/68
--- NOTE | 2020-12-10 17:57 | NUR ---
PT SITTING UP IN THE BED EATTING DINNER , NO COMPLAINTS AT THIS TIME. CALL LIGHT IN REACH, WILL CONTINUE TO MONIOTOR THE PATIENT.
[2020-12-10 19:15] VITALS: BP 120/66
--- NOTE | 2020-12-10 22:03 | NUR ---
PHYSICAL ASSESMENT COMPLETE. PT CURRENTLY DENIES PAIN OR DISCOMFORT. SCHEDULED MEDICATIONS AND PRN MEDICATION ADMINISTERED, SEE E-MAR. PT PROVIDED A SNACK. PLAN OF CARE REVIEWED, PT DENIES QUESTIONS, VERBALIZES UNDERSTANDING. ITEMS WITHIN REACH, BED LOCKED IN LOW POSITION W/ BEDRAILS UP X2. CALL SUAREZ WITHIN REACH, AGREES TO CALL PRN.
[2020-12-11] VITALS: BP 120/62
--- NOTE | 2020-12-11 00:04 | NUR ---
PT LAYING IN BED WITH EYES CLOSED, APPEARS TO BE SLEEPING, APPEARS COMFORTABLE AND IN NO DISTRESS. RESPIRATIONS REGULAR AND UNLABORED. ITEMS REMAIN WITHIN REACH, CALL SUAREZ REMAINS WITHIN REACH. BED REMAINS LOCKED AND IN LOW POSITION WITH BEDRAILS UP X2. WILL CONTINUE TO MONITOR.
[2020-12-11 03:28] VITALS: BP 110/63
--- NOTE | 2020-12-11 07:30 | NUR ---
RECIEVED REPORT FROM NABILA GALLEGO.
[2020-12-11 08:08] VITALS: BP 123/76
--- NOTE | 2020-12-11 08:08 | NUR ---
PT RESTING IN SEMI FOWLERS POSITION UPON ENTERING ROOM. INTRODUCED SELF TO PT AND DISCUSSED POC. PT IS A/O X3. ASSESSMENT AND VITALS COMPLETED. BP 123/76, HR 62, O2 97% ON 2.5L NC. RESPIRATIONS ARE EVEN AND UNLABORED WITH NO DISTRESS NOTED. LUNG SOUNDS CLEAR BUT DIMINISHED. HEART RHYTHM NORMAL WITH TELE IN PLACE. BOWEL SOUNDS ARE ACTIVE. RADIAL AND PEDAL PULSES STRONG.#22G IN LEFT HAND INFUSING WITH IVF PER ORDER, SITE APPEARS HEALTHY AND PATENT. SKIN IS WARM AND INTACT. 1+ EDEMA NOTED TO BLE. PT COMPLAINS OF 8/10 ABD CRAMPING THAT "STARTED THIS MORNING." PT MEDICATED PER EMAR. ACCUCHECK REUSLTING IN 118, NO COVERAGE NEEDED. PT DENIES OF ANY OTHER PAINS OR NEEDS AT THIS TIME. ALL SAFETY PRECAUTIONS ARE IN PLACE. WILL CONTINUE TO MONITOR.
[2020-12-11 09:23] LABS: HEMATOCRIT 44.6 % (37.0-47.0); HEMOGLOBIN 13.1 g/dl (12.0-16.0); IMMATURE GRANULOCYTES 0.4 % (0.0-5.0); MEAN CORPUSCULAR HGB CONC 29.4 g/dL CAL (32.0-36.0); NEUT# 5.83 thou/uL (2.00-7.15); RED BLOOD COUNT 4.85 mill/uL (4.20-5.60); RED CELL DISTRI WIDTH 18.5 % (11.5-15.5)
[2020-12-11 09:40] LABS: ANION GAP 11 (6-22 (CALC)); BUN 18 mg/dL (7-17); BUN/CREATININE RATIO 22 (12-20 (CALC)); CARBON DIOXIDE 29 mmol/l (22-30); CHLORIDE 97 mmol/l (95-108); CREATININE 0.8 mg/dL (0.5-1.0); GFR > 60 ML/MIN (>=60 (CALC)); GFR FOR AFR.AMER. > 60 ML/MIN (>=60 (CALC)); SODIUM 134 mmol/l (137-146)
[2020-12-11 11:00] VITALS: BP 106/62
--- NOTE | 2020-12-11 11:20 | NUR ---
DR FERRARA AT BEDSIDE
--- NOTE | 2020-12-11 11:27 | NUR ---
PT AT BEDSIDE
[2020-12-11] MEDS ORDERED: DEXAMETHASON6 MG PO (11:35)
[2020-12-11] MEDS ORDERED: DICYCLOMINE20 MG PO (11:36)
[2020-12-11] MEDS ORDERED: HYDROCO/APAP1 TA9 PO (11:36)
--- NOTE | 2020-12-11 11:58 | NUR ---
PT RESTING IN SEMI FOWLERS POSITION. RESPIRATIONS ARE EVEN AND UNLABORED ON 2.5L NC. PT AWARE OF DISCHAGE. IVF INFUSING PER ORDER, SITE APPEARS HEALTHY AND PATENT. TELE IN PLACE. WILL CONTINUE TO MONITOR
--- NOTE | 2020-12-11 13:27 | NUR ---
PT EDUACTED ON DISHARGE INSTRUCTIONS AND NEW MEDICATIONS. PT VERALIZED UNDERSTANDING. IV REMOVED WITH CATAHTER STILL INTACT. TELE MONITORING REMOVED. ER NOTIFIED. WAITING ON TRANSPORTATION AT THIS TIME. WILL CONTINUE TO MONITOR
[2020-12-11] MEDS ORDERED: ZITHROMAX250 MG PO (13:40)
--- NOTE | 2020-12-11 14:06 | NUR ---
Discharge instructions given. Patient verbalizes understanding of same. Discharged in stable condition via Wheelchair to Home with family. All belongings sent with pt. PT DISCHARGED HOME IN STABLE CONDITION VIA WHEELCHAIR. HOME O2 PROVIDED BY FAMILY MEMEBER.PT LEFT WITH ALL DISCHARGE INSTRUCTIONS AND BELONGINGS.
--- NOTE | 2020-12-11 16:07 | NUR ---
PT note Patient was supine as entered room, patient agreed to participate in session. Precautions in place. Supine>sit independent, sit>stand independent. Stand>sit independent. entered room and stated patient will be going home. [facility] 6 score19 home w/o services
== END 2020-12-11 14:05 | disposition home or self-care (01) | DRG 189 ==
LOC: ED 23:16 → ED-I 12-05 02:15 → ED 12-05 02:48 → MS2 12-05 02:49
PROVIDERS: Nurse Practitioner; Nurse Practitioner Family; ADMIT Internal Medicine; ATTEND Internal Medicine
DX: J96.21 Acute and chronic respiratory failure with hypoxia (principal); N39.0 Urinary tract infection, site not specified; Z68.44 Body mass index [BMI] 60.0-69.9, adult; E87.2 Acidosis; I10 Essential (primary) hypertension; K21.9 Gastro-esophageal reflux disease without esophagitis; E66.01 Morbid (severe) obesity due to excess calories; K59.00 Constipation, unspecified; R91.8 Other nonspecific abnormal finding of lung field; G47.33 Obstructive sleep apnea (adult) (pediatric); K70.10 Alcoholic hepatitis without ascites; B96.20 Unspecified Escherichia coli [E. coli] as the cause of diseases classified elsewhere; Z79.01 Long term (current) use of anticoagulants; Z99.81 Dependence on supplemental oxygen; Z86.711 Personal history of pulmonary embolism; Z20.822 Contact with and (suspected) exposure to COVID-19
CPT/HCPCS: Q9967

== ENCOUNTER 2021-02-05 04:59 | Emergency (ER) | payer MEDICAID ==
[~2021-02-05 04:59] MED LIST changes: +DEXAMETHASON6 MG PO; +DICYCLOMINE20 MG PO; +HYDROCO/APAP1 TA9 PO
[2021-02-05] MEDS ORDERED: CYCLOBENZAPRINE10 MG PO (06:05)
[2021-02-05] MEDS ORDERED: NAPROXEN500 MG PO (06:05)
[2021-02-05 06:23] VITALS: BP 165/87
== END 2021-02-05 06:28 | disposition home or self-care (01) ==
LOC: ED 04:59
DX: M25.552 Pain in left hip (principal); M25.562 Pain in left knee; E66.01 Morbid (severe) obesity due to excess calories; I10 Essential (primary) hypertension; E78.5 Hyperlipidemia, unspecified; K21.9 Gastro-esophageal reflux disease without esophagitis; W01.0XXA Fall on same level from slipping, tripping and stumbling without subsequent striking against object, initial encounter; Y92.009 Unspecified place in unspecified non-institutional (private) residence as the place of occurrence of the external cause; Z86.711 Personal history of pulmonary embolism

== ENCOUNTER 2021-03-30 11:04 | Emergency (ER) | payer MEDICAID ==
[~2021-03-30] VITALS: Ht 162.6 cm; Wt 161.0 kg
[~2021-03-30 11:04] MED LIST changes: +CYCLOBENZAPRINE10 MG PO
[2021-03-30 11:52] LABS: URINE BILIRUBIN - DIPSTICK NEGATIVE (NEGATIVE); URINE BLOOD DIPSTICK NEGATIVE (NEGATIVE); URINE COLOR YELLOW; URINE GLUCOSE - DIPSTICK NEGATIVE (NEGATIVE); URINE KETONE NEGATIVE (NEGATIVE); URINE LEUK ESTERASE NEGATIVE (NEGATIVE); URINE PH 6.5 (4.5-8.0); URINE PROTEIN - DIPSTICK NEGATIVE (NEG-TRACE); URINE SPECIFIC GRAVITY 1.015
[2021-03-30 11:52] LABS: HEMATOCRIT 46.8 % (37.0-47.0); HEMOGLOBIN 14.2 g/dl (12.0-16.0); IMMATURE GRANULOCYTES 0.4 % (0.0-5.0); MEAN CELL VOLUME 96.9 fL CALC (80.0-100.0); MEAN CORPUSCULAR HGB 29.4 pG CALC (26.0-32.0); MEAN CORPUSCULAR HGB CONC 30.3 g/dL CAL (32.0-36.0); NEUT# 3.72 thou/uL (2.00-7.15); RED BLOOD COUNT 4.83 mill/uL (4.20-5.60); RED CELL DISTRI WIDTH 17.1 % (11.5-15.5)
[2021-03-30 11:54] LABS: URINE NITRITE - DIPSTICK NEGATIVE (Negative)
[2021-03-30 12:11] LABS: ALBUMIN 3.5 g/dL (3.2-5.0); ALKALINE PHOSPHATASE 95 u/l (38-126); ANION GAP 9 (6-22 (CALC)); BILIRUBIN, TOTAL 1.3 mg/dL (0.0-1.4); BUN 6 mg/dL (7-17); BUN/CREATININE RATIO 7 (12-20 (CALC)); CARBON DIOXIDE 30 mmol/l (22-30); CHLORIDE 100 mmol/l (95-108); CREATININE 0.8 mg/dL (0.5-1.0); GFR > 60 ML/MIN (>=60 (CALC)); GFR FOR AFR.AMER. > 60 ML/MIN (>=60 (CALC)); POTASSIUM 3.5 mmol/l (3.5-5.1); SGOT/AST 54 u/l (14-36); SODIUM 136 mmol/l (137-146); TOTAL PROTEIN 7.6 g/dL (6.3-8.2)
[2021-03-30 12:19] LABS: MYOGLOBIN 30 ng/mL (0 - 62)
[2021-03-30] MEDS ORDERED: ULTRAM50 M1 PO (13:22)
[2021-03-30 15:57] VITALS: BP 116/79
== END 2021-03-30 15:46 | disposition home or self-care (01) ==
LOC: ED 11:04
PROVIDERS: Emergency Medicine
DX: M79.10 Myalgia, unspecified site (principal); E11.9 Type 2 diabetes mellitus without complications; I10 Essential (primary) hypertension; E78.5 Hyperlipidemia, unspecified; K21.9 Gastro-esophageal reflux disease without esophagitis; E66.01 Morbid (severe) obesity due to excess calories; G47.30 Sleep apnea, unspecified; K70.10 Alcoholic hepatitis without ascites; Z86.711 Personal history of pulmonary embolism
CPT/HCPCS: Q9967; S0164

== ENCOUNTER 2021-04-18 15:03 | Emergency (ER) | payer MEDICAID ==
[~2021-04-18] VITALS: Ht 162.6 cm; Wt 163.0 kg
[2021-04-18 15:59] LABS: HEMATOCRIT 50.2 % (37.0-47.0); HEMOGLOBIN 15.3 g/dl (12.0-16.0); IMMATURE GRANULOCYTES 0.2 % (0.0-5.0); MEAN CELL VOLUME 94.7 fL CALC (80.0-100.0); MEAN CORPUSCULAR HGB 28.9 pG CALC (26.0-32.0); MEAN CORPUSCULAR HGB CONC 30.5 g/dL CAL (32.0-36.0); NEUT# 4.09 thou/uL (2.00-7.15); RED BLOOD COUNT 5.3 mill/uL (4.20-5.60); RED CELL DISTRI WIDTH 18.1 % (11.5-15.5)
[2021-04-18 16:14] LABS: ALBUMIN 3.5 g/dL (3.2-5.0); ALKALINE PHOSPHATASE 94 u/l (38-126); ANION GAP 11 (6-22 (CALC)); BILIRUBIN, TOTAL 1.6 mg/dL (0.0-1.4); BUN 6 mg/dL (7-17); BUN/CREATININE RATIO 7 (12-20 (CALC)); CARBON DIOXIDE 30 mmol/l (22-30); CHLORIDE 97 mmol/l (95-108); CREATININE 0.8 mg/dL (0.5-1.0); GFR > 60 ML/MIN (>=60 (CALC)); GFR FOR AFR.AMER. > 60 ML/MIN (>=60 (CALC)); POTASSIUM 3.7 mmol/l (3.5-5.1); SGOT/AST 66 u/l (14-36); SODIUM 134 mmol/l (137-146); TOTAL PROTEIN 7.5 g/dL (6.3-8.2)
[2021-04-18 16:26] LABS: MYOGLOBIN 31 ng/mL (0 - 62)
[2021-04-18 17:26] LABS: URINE BILIRUBIN - DIPSTICK NEGATIVE (NEGATIVE); URINE BLOOD DIPSTICK NEGATIVE (NEGATIVE); URINE COLOR YELLOW; URINE GLUCOSE - DIPSTICK NEGATIVE (NEGATIVE); URINE KETONE NEGATIVE (NEGATIVE); URINE PH 7.5 (4.5-8.0); URINE PROTEIN - DIPSTICK NEGATIVE (NEG-TRACE); URINE SPECIFIC GRAVITY 1.015
[2021-04-18 17:27] LABS: URINE LEUK ESTERASE SMALL (NEGATIVE); URINE NITRITE - DIPSTICK POSITIVE (Negative)
[2021-04-18 17:36] LABS: URINE BACTERIA MANY hpf; URINE RBC 0-2 RBC/hpf (0-5); URINE SQUAMOUS EPITHELIAL CELL FEW EPI/hpf (0-FEW)
[2021-04-18] MEDS ORDERED: KEFLEX500 MG PO (18:04)
[2021-04-18] MEDS ORDERED: ULTRAM50 M1 PO (18:04)
[2021-04-18 18:21] VITALS: BP 119/77
== END 2021-04-18 18:21 | disposition home or self-care (01) ==
LOC: ED 15:03
PROVIDERS: Emergency Medicine
DX: M79.10 Myalgia, unspecified site (principal); N39.0 Urinary tract infection, site not specified; B96.20 Unspecified Escherichia coli [E. coli] as the cause of diseases classified elsewhere; I10 Essential (primary) hypertension; E78.5 Hyperlipidemia, unspecified; K21.9 Gastro-esophageal reflux disease without esophagitis; E66.01 Morbid (severe) obesity due to excess calories; G47.30 Sleep apnea, unspecified

== ENCOUNTER 2021-05-07 07:27 | Emergency (ER) | payer MEDICAID ==
[~2021-05-07] VITALS: Ht 162.6 cm; Wt 161.0 kg
[2021-05-07 08:36] LABS: HEMATOCRIT 52.8 % (37.0-47.0); IMMATURE GRANULOCYTES 0.2 % (0.0-5.0); MEAN CELL VOLUME 94.1 fL CALC (80.0-100.0); MEAN CORPUSCULAR HGB 28.5 pG CALC (26.0-32.0); MEAN CORPUSCULAR HGB CONC 30.3 g/dL CAL (32.0-36.0); NEUT# 3.74 thou/uL (2.00-7.15); RED BLOOD COUNT 5.61 mill/uL (4.20-5.60); RED CELL DISTRI WIDTH 17.2 % (11.5-15.5)
[2021-05-07 08:38] LABS: URINE BILIRUBIN - DIPSTICK NEGATIVE (NEGATIVE); URINE BLOOD DIPSTICK NEGATIVE (NEGATIVE); URINE COLOR YELLOW; URINE GLUCOSE - DIPSTICK NEGATIVE (NEGATIVE); URINE KETONE NEGATIVE (NEGATIVE); URINE LEUK ESTERASE NEGATIVE (NEGATIVE); URINE PH 7.5 (4.5-8.0); URINE PROTEIN - DIPSTICK NEGATIVE (NEG-TRACE)
[2021-05-07 08:39] LABS: URINE NITRITE - DIPSTICK NEGATIVE (Negative)
[2021-05-07 08:47] LABS: ALBUMIN 3.6 g/dL (3.2-5.0); ALKALINE PHOSPHATASE 81 u/l (38-126); ANION GAP 9 (6-22 (CALC)); BILIRUBIN, TOTAL 1.5 mg/dL (0.0-1.4); BUN 9 mg/dL (7-17); BUN/CREATININE RATIO 12 (12-20 (CALC)); CARBON DIOXIDE 31 mmol/l (22-30); CHLORIDE 99 mmol/l (95-108); CREATININE 0.8 mg/dL (0.5-1.0); GFR > 60 ML/MIN (>=60 (CALC)); GFR FOR AFR.AMER. > 60 ML/MIN (>=60 (CALC)); SGOT/AST 50 u/l (14-36); SODIUM 136 mmol/l (137-146); TOTAL PROTEIN 7.9 g/dL (6.3-8.2)
[2021-05-07 09:00] LABS: MYOGLOBIN 33 ng/mL (0 - 62)
[2021-05-07] MEDS ORDERED: ULTRAM50 M1 PO (10:16)
[2021-05-07 10:30] VITALS: BP 115/68
== END 2021-05-07 10:16 | disposition home or self-care (01) ==
LOC: ED 07:27
PROVIDERS: Emergency Medicine
DX: S20.212A Contusion of left front wall of thorax, initial encounter (principal); E87.6 Hypokalemia; I10 Essential (primary) hypertension; E78.5 Hyperlipidemia, unspecified; K21.9 Gastro-esophageal reflux disease without esophagitis; E66.01 Morbid (severe) obesity due to excess calories; G47.30 Sleep apnea, unspecified; K70.10 Alcoholic hepatitis without ascites; X58.XXXA Exposure to other specified factors, initial encounter; Z86.711 Personal history of pulmonary embolism

== ENCOUNTER 2021-05-12 20:09 | Emergency (ER) | payer MEDICAID ==
[~2021-05-12] VITALS: Ht 162.6 cm; Wt 181.0 kg
[2021-05-12 21:42] LABS: HEMATOCRIT 53.6 % (37.0-47.0); HEMOGLOBIN 16.6 g/dl (12.0-16.0); IMMATURE GRANULOCYTES 0.1 % (0.0-5.0); MEAN CELL VOLUME 91.5 fL CALC (80.0-100.0); MEAN CORPUSCULAR HGB 28.3 pG CALC (26.0-32.0); NEUT# 5.49 thou/uL (2.00-7.15); RED BLOOD COUNT 5.86 mill/uL (4.20-5.60)
[2021-05-12 21:44] LABS: URINE BILIRUBIN - DIPSTICK NEGATIVE (NEGATIVE); URINE BLOOD DIPSTICK NEGATIVE (NEGATIVE); URINE COLOR YELLOW; URINE GLUCOSE - DIPSTICK NEGATIVE (NEGATIVE); URINE KETONE NEGATIVE (NEGATIVE); URINE LEUK ESTERASE NEGATIVE (NEGATIVE); URINE PH 5.5 (4.5-8.0); URINE PROTEIN - DIPSTICK NEGATIVE (NEG-TRACE)
[2021-05-12 21:47] LABS: URINE NITRITE - DIPSTICK NEGATIVE (Negative)
[2021-05-12 21:53] LABS: ALBUMIN 3.9 g/dL (3.2-5.0); ALKALINE PHOSPHATASE 91 u/l (38-126); ANION GAP 13 (6-22 (CALC)); BILIRUBIN, TOTAL 1.7 mg/dL (0.0-1.4); BUN 11 mg/dL (7-17); BUN/CREATININE RATIO 12 (12-20 (CALC)); CARBON DIOXIDE 30 mmol/l (22-30); CHLORIDE 95 mmol/l (95-108); CREATININE 0.9 mg/dL (0.5-1.0); GFR > 60 ML/MIN (>=60 (CALC)); GFR FOR AFR.AMER. > 60 ML/MIN (>=60 (CALC)); SGOT/AST 53 u/l (14-36); SODIUM 135 mmol/l (137-146); TOTAL PROTEIN 8.2 g/dL (6.3-8.2)
[2021-05-12] MEDS ORDERED: NEURONTIN300 MG PO (22:54)
[2021-05-12 23:50] VITALS: BP 101/60
== END 2021-05-12 23:55 | disposition home or self-care (01) ==
LOC: ED 20:09
PROVIDERS: Family Medicine
DX: S20.212A Contusion of left front wall of thorax, initial encounter (principal); M79.18 Myalgia, other site; I10 Essential (primary) hypertension; E78.5 Hyperlipidemia, unspecified; K21.9 Gastro-esophageal reflux disease without esophagitis; E66.01 Morbid (severe) obesity due to excess calories; K70.10 Alcoholic hepatitis without ascites; X58.XXXA Exposure to other specified factors, initial encounter; Z86.711 Personal history of pulmonary embolism; Z68.44 Body mass index [BMI] 60.0-69.9, adult
CPT/HCPCS: Q9967

== ENCOUNTER 2021-05-23 04:55 | Emergency (ER) | payer MEDICAID ==
[~2021-05-23] VITALS: Ht 162.6 cm; Wt 162.0 kg
[~2021-05-23 04:55] MED LIST changes: +NEURONTIN300 MG PO
[2021-05-23 05:39] LABS: HEMATOCRIT 50.8 % (37.0-47.0); HEMOGLOBIN 15.5 g/dl (12.0-16.0); IMMATURE GRANULOCYTES 0.2 % (0.0-5.0); MEAN CELL VOLUME 95.5 fL CALC (80.0-100.0); MEAN CORPUSCULAR HGB 29.1 pG CALC (26.0-32.0); MEAN CORPUSCULAR HGB CONC 30.5 g/dL CAL (32.0-36.0); NEUT# 4.33 thou/uL (2.00-7.15); RED BLOOD COUNT 5.32 mill/uL (4.20-5.60)
[2021-05-23 05:49] LABS: ALBUMIN 3.9 g/dL (3.2-5.0); ALKALINE PHOSPHATASE 106 u/l (38-126); AMYLASE 51 u/l (30-110); ANION GAP 12 (6-22 (CALC)); BILIRUBIN, TOTAL 1.4 mg/dL (0.0-1.4); BUN 10 mg/dL (7-17); BUN/CREATININE RATIO 12 (12-20 (CALC)); CARBON DIOXIDE 32 mmol/l (22-30); CHLORIDE 98 mmol/l (95-108); CREATININE 0.8 mg/dL (0.5-1.0); GFR > 60 ML/MIN (>=60 (CALC)); GFR FOR AFR.AMER. > 60 ML/MIN (>=60 (CALC)); LIPASE 34 u/l (23-300); POTASSIUM 3.2 mmol/l (3.5-5.1); SGOT/AST 46 u/l (14-36); SODIUM 138 mmol/l (137-146); TOTAL PROTEIN 8.2 g/dL (6.3-8.2)
[2021-05-23 05:59] LABS: MYOGLOBIN 36 ng/mL (0 - 62)
[2021-05-23 08:56] LABS: URINE BLOOD DIPSTICK NEGATIVE (NEGATIVE); URINE COLOR YELLOW; URINE GLUCOSE - DIPSTICK NEGATIVE (NEGATIVE); URINE KETONE NEGATIVE (NEGATIVE); URINE LEUK ESTERASE TRACE (NEGATIVE); URINE PROTEIN - DIPSTICK NEGATIVE (NEG-TRACE)
[2021-05-23 09:00] LABS: URINE BILIRUBIN - DIPSTICK NEGATIVE (NEGATIVE); URINE NITRITE - DIPSTICK NEGATIVE (Negative)
[2021-05-23 09:03] LABS: URINE BACTERIA FEW hpf; URINE EPITHELIAL CELLS MANY EPI/hpf (0-FEW); URINE MUCUS FEW hpf (NONE-FEW); URINE RBC 0-2 RBC/hpf (0-5)
[2021-05-23 09:14] VITALS: BP 138/72
[2021-05-23] MEDS ORDERED: TRAMADOL HYDROC50 M1 PO (09:31)
== END 2021-05-23 09:20 | disposition home or self-care (01) ==
LOC: ED 04:55
PROVIDERS: Family Medicine
DX: R10.12 Left upper quadrant pain (principal); G89.29 Other chronic pain; I10 Essential (primary) hypertension; E78.5 Hyperlipidemia, unspecified; K21.9 Gastro-esophageal reflux disease without esophagitis; E66.01 Morbid (severe) obesity due to excess calories; T40.426A Underdosing of tramadol, initial encounter; Z91.128 Patient's intentional underdosing of medication regimen for other reason

== ENCOUNTER 2021-06-26 09:53 | Inpatient (IN) | payer MEDICAID ==
[~2021-06-26] VITALS: Ht 162.6 cm; Wt 152.5 kg
[~2021-06-26 09:53] MED LIST changes: +TRAMADOL HYDROC50 M1 PO
[2021-06-26 11:13] LABS: HEMATOCRIT 52.6 % (37.0-47.0); HEMOGLOBIN 15.9 g/dl (12.0-16.0); IMMATURE GRANULOCYTES 0.3 % (0.0-5.0); MEAN CELL VOLUME 93.9 fL CALC (80.0-100.0); MEAN CORPUSCULAR HGB 28.4 pG CALC (26.0-32.0); MEAN CORPUSCULAR HGB CONC 30.2 g/dL CAL (32.0-36.0); NEUT# 1.92 thou/uL (2.00-7.15); RED BLOOD COUNT 5.6 mill/uL (4.20-5.60); RED CELL DISTRI WIDTH 18.7 % (11.5-15.5)
[2021-06-26 11:34] LABS: ALBUMIN 3.6 g/dL (3.2-5.0); ALKALINE PHOSPHATASE 58 u/l (38-126); BILIRUBIN, TOTAL 1.7 mg/dL (0.0-1.4); BUN 13 mg/dL (7-17); BUN/CREATININE RATIO 11 (12-20 (CALC)); C-REACTIVE PROTEIN 4.6 mg/dL (0-0.9); CARBON DIOXIDE 34 mmol/l (22-30); CHLORIDE 91 mmol/l (95-108); CREATININE 1.2 mg/dL (0.5-1.0); GFR 47 ML/MIN (>=60 (CALC)); GFR FOR AFR.AMER. 57 ML/MIN (>=60 (CALC)); POTASSIUM 2.8 mmol/l (3.5-5.1); SGOT/AST 67 u/l (14-36); TOTAL PROTEIN 7.7 g/dL (6.3-8.2)
[2021-06-26 11:37] LABS: ANION GAP 9 (6-22 (CALC)); SODIUM 131 mmol/l (137-146)
[2021-06-26] MEDS ORDERED: CARAFATE1 GM PO (14:01)
[2021-06-26] MEDS ORDERED: PANTOPRAZOLE SO40 M1 PO (14:02)
[2021-06-26] MEDS ORDERED: LORTAB 5/3255 MG PO (14:02)
[2021-06-26 21:00] VITALS: BP 103/62
[2021-06-26 22:00] VITALS: BP 76/51
[2021-06-27] VITALS (22 sets, daily range): BP systolic 80–125; BP diastolic 50–82
[2021-06-27 02:18] LABS: URINE BILIRUBIN - DIPSTICK NEGATIVE (NEGATIVE); URINE BLOOD DIPSTICK NEGATIVE (NEGATIVE); URINE COLOR YELLOW; URINE GLUCOSE - DIPSTICK NEGATIVE (NEGATIVE); URINE KETONE 15 mg/dL (NEGATIVE); URINE LEUK ESTERASE NEGATIVE (NEGATIVE); URINE PROTEIN - DIPSTICK NEGATIVE (NEG-TRACE); URINE UROBILINOGEN - DIPSTICK 0.2 E.U./dL (0.2)
[2021-06-27 02:20] LABS: URINE NITRITE - DIPSTICK NEGATIVE (Negative)
[2021-06-27 06:41] LABS: HEMATOCRIT 55.6 % (37.0-47.0); HEMOGLOBIN 16.7 g/dl (12.0-16.0); IMMATURE GRANULOCYTES 0.4 % (0.0-5.0); MEAN CELL VOLUME 94.7 fL CALC (80.0-100.0); MEAN CORPUSCULAR HGB 28.4 pG CALC (26.0-32.0); NEUT# 1.79 thou/uL (2.00-7.15); RED BLOOD COUNT 5.87 mill/uL (4.20-5.60); RED CELL DISTRI WIDTH 18.6 % (11.5-15.5)
[2021-06-27 07:09] LABS: ALBUMIN 3.1 g/dL (3.2-5.0); ALKALINE PHOSPHATASE 50 u/l (38-126); BILIRUBIN, TOTAL 1.2 mg/dL (0.0-1.4); BUN 14 mg/dL (7-17); BUN/CREATININE RATIO 15 (12-20 (CALC)); C-REACTIVE PROTEIN 4.7 mg/dL (0-0.9); CHLORIDE 98 mmol/l (95-108); CREATININE 0.9 mg/dL (0.5-1.0); GFR > 60 ML/MIN (>=60 (CALC)); GFR FOR AFR.AMER. > 60 ML/MIN (>=60 (CALC)); SGOT/AST 50 u/l (14-36); SODIUM 133 mmol/l (137-146); TOTAL PROTEIN 6.8 g/dL (6.3-8.2)
[2021-06-27 07:14] LABS: ANION GAP 14 (6-22 (CALC)); CARBON DIOXIDE 25 mmol/l (22-30); POTASSIUM 3.7 mmol/l (3.5-5.1)
[2021-06-28] VITALS (22 sets, daily range): BP systolic 75–144; BP diastolic 51–71
[2021-06-28 06:06] LABS: HEMATOCRIT 54.2 % (37.0-47.0); HEMOGLOBIN 16.3 g/dl (12.0-16.0); MEAN CELL VOLUME 93.9 fL CALC (80.0-100.0); MEAN CORPUSCULAR HGB 28.2 pG CALC (26.0-32.0); MEAN CORPUSCULAR HGB CONC 30.1 g/dL CAL (32.0-36.0); RED BLOOD COUNT 5.77 mill/uL (4.20-5.60); RED CELL DISTRI WIDTH 18.2 % (11.5-15.5)
[2021-06-28 06:13] LABS: ANION GAP 10 (6-22 (CALC)); BUN 17 mg/dL (7-17); BUN/CREATININE RATIO 20 (12-20 (CALC)); CHLORIDE 96 mmol/l (95-108); CREATININE 0.9 mg/dL (0.5-1.0); GFR > 60 ML/MIN (>=60 (CALC)); GFR FOR AFR.AMER. > 60 ML/MIN (>=60 (CALC)); POTASSIUM 3.8 mmol/l (3.5-5.1); SODIUM 134 mmol/l (137-146)
[2021-06-28 06:17] LABS: CARBON DIOXIDE 32 mmol/l (22-30)
[2021-06-29] VITALS (9 sets, daily range): BP systolic 85–110; BP diastolic 47–77
[2021-06-29 05:51] LABS: HEMATOCRIT 54.5 % (37.0-47.0); HEMOGLOBIN 16.5 g/dl (12.0-16.0); IMMATURE GRANULOCYTES 0.2 % (0.0-5.0); MEAN CELL VOLUME 93.6 fL CALC (80.0-100.0); MEAN CORPUSCULAR HGB 28.4 pG CALC (26.0-32.0); MEAN CORPUSCULAR HGB CONC 30.3 g/dL CAL (32.0-36.0); NEUT# 3.76 thou/uL (2.00-7.15); RED BLOOD COUNT 5.82 mill/uL (4.20-5.60); RED CELL DISTRI WIDTH 18.2 % (11.5-15.5)
[2021-06-29 06:22] LABS: ALBUMIN 3.3 g/dL (3.2-5.0); ALKALINE PHOSPHATASE 48 u/l (38-126); ANION GAP 11 (6-22 (CALC)); BUN 19 mg/dL (7-17); BUN/CREATININE RATIO 23 (12-20 (CALC)); C-REACTIVE PROTEIN 1.9 mg/dL (0-0.9); CARBON DIOXIDE 31 mmol/l (22-30); CHLORIDE 95 mmol/l (95-108); CREATININE 0.8 mg/dL (0.5-1.0); GFR > 60 ML/MIN (>=60 (CALC)); GFR FOR AFR.AMER. > 60 ML/MIN (>=60 (CALC)); POTASSIUM 3.3 mmol/l (3.5-5.1); SGOT/AST 34 u/l (14-36); SODIUM 134 mmol/l (137-146)
[2021-06-30] VITALS: BP 108/60
[2021-06-30 04:00] VITALS: BP 108/70
[2021-06-30 05:34] LABS: HEMOGLOBIN 15.3 g/dl (12.0-16.0); MEAN CELL VOLUME 93.4 fL CALC (80.0-100.0); RED BLOOD COUNT 5.46 mill/uL (4.20-5.60)
[2021-06-30 06:12] LABS: ANION GAP 10 (6-22 (CALC)); BUN 20 mg/dL (7-17); BUN/CREATININE RATIO 24 (12-20 (CALC)); CARBON DIOXIDE 31 mmol/l (22-30); CHLORIDE 97 mmol/l (95-108); CREATININE 0.8 mg/dL (0.5-1.0); GFR > 60 ML/MIN (>=60 (CALC)); GFR FOR AFR.AMER. > 60 ML/MIN (>=60 (CALC)); POTASSIUM 3.2 mmol/l (3.5-5.1); SODIUM 134 mmol/l (137-146)
[2021-06-30 08:00] VITALS: BP 110/70
[2021-06-30 10:50] VITALS: BP 106/67
[2021-06-30 14:55] VITALS: BP 114/64
[2021-06-30 19:00] VITALS: BP 106/57
[2021-07-01] VITALS: BP 112/65
[2021-07-01 04:00] VITALS: BP 110/58
[2021-07-01 05:22] LABS: HEMATOCRIT 52.6 % (37.0-47.0); HEMOGLOBIN 15.9 g/dl (12.0-16.0); IMMATURE GRANULOCYTES 0.2 % (0.0-5.0); MEAN CELL VOLUME 93.6 fL CALC (80.0-100.0); MEAN CORPUSCULAR HGB 28.3 pG CALC (26.0-32.0); MEAN CORPUSCULAR HGB CONC 30.2 g/dL CAL (32.0-36.0); NEUT# 4.21 thou/uL (2.00-7.15); RED BLOOD COUNT 5.62 mill/uL (4.20-5.60); RED CELL DISTRI WIDTH 18.1 % (11.5-15.5)
[2021-07-01 05:44] LABS: ALBUMIN 3.1 g/dL (3.2-5.0); ALKALINE PHOSPHATASE 47 u/l (38-126); ANION GAP 10 (6-22 (CALC)); BILIRUBIN, TOTAL 1.1 mg/dL (0.0-1.4); BUN 21 mg/dL (7-17); BUN/CREATININE RATIO 25 (12-20 (CALC)); CARBON DIOXIDE 30 mmol/l (22-30); CHLORIDE 99 mmol/l (95-108); CREATININE 0.8 mg/dL (0.5-1.0); GFR > 60 ML/MIN (>=60 (CALC)); GFR FOR AFR.AMER. > 60 ML/MIN (>=60 (CALC)); POTASSIUM 3.7 mmol/l (3.5-5.1); SGOT/AST 44 u/l (14-36); SODIUM 136 mmol/l (137-146); TOTAL PROTEIN 6.4 g/dL (6.3-8.2)
[2021-07-01 08:57] VITALS: BP 109/57
[2021-07-01 11:41] VITALS: BP 108/61
[2021-07-01] MEDS ORDERED: VENTOLIN HFA108 MCG IN (12:10)
[2021-07-01] MEDS ORDERED: ZPAK PO (12:10)
[2021-07-01] MEDS ORDERED: DEXAMETHASON6 MG PO (12:11)
[2021-07-01] MEDS ORDERED: ZOFRAN4 MG/TAB PO (12:11)
[2021-07-01 15:00] VITALS: BP 124/72
[2021-07-01 19:00] VITALS: BP 117/59
[2021-07-02] VITALS: BP 110/55
[2021-07-02 01:00] VITALS: BP 148/75
[2021-07-02 05:00] VITALS: BP 118/60
[2021-07-02 08:00] VITALS: BP 114/73
[2021-07-02 10:20] VITALS: BP 111/70
== END 2021-07-02 14:55 | disposition home or self-care (01) | DRG 177 ==
LOC: ED 09:53 → ED-I 11:45 → ED 12:09 → MS2 12:10 → ICU 12:10 → ED-I 12:10 → ICU 18:25 → MS2 06-29 18:02
PROVIDERS: Family Medicine; Nurse Practitioner; ADMIT Hospitalist; ATTEND Hospitalist
PROC: 5A09357 Assistance with Respiratory Ventilation, Less than 24 Consecutive Hours, Continuous Positive Airway Pressure (ICD-10-PCS; principal; 2021-06-26)
PROC: XW033E5 Introduction of Remdesivir Anti-infective into Peripheral Vein, Percutaneous Approach, New Technology Group 5 (ICD-10-PCS; 2021-06-27)
DX: U07.1 COVID-19 (principal); J12.82 Pneumonia due to coronavirus disease 2019; J96.01 Acute respiratory failure with hypoxia; Z68.43 Body mass index [BMI] 50.0-59.9, adult; E87.1 Hypo-osmolality and hyponatremia; I10 Essential (primary) hypertension; E78.5 Hyperlipidemia, unspecified; K21.9 Gastro-esophageal reflux disease without esophagitis; E66.01 Morbid (severe) obesity due to excess calories; E87.6 Hypokalemia; E11.9 Type 2 diabetes mellitus without complications; G47.33 Obstructive sleep apnea (adult) (pediatric); M19.90 Unspecified osteoarthritis, unspecified site; K70.10 Alcoholic hepatitis without ascites; R00.1 Bradycardia, unspecified; T37.5X5A Adverse effect of antiviral drugs, initial encounter; Z99.81 Dependence on supplemental oxygen; Z79.01 Long term (current) use of anticoagulants; Z86.711 Personal history of pulmonary embolism
CPT/HCPCS: J3475

== ENCOUNTER 2021-08-15 01:27 | Emergency (ER) | payer MEDICAID ==
[~2021-08-15] VITALS: Ht 162.6 cm; Wt 150.0 kg
[~2021-08-15 01:27] MED LIST changes: +LORTAB 5/3255 MG PO; +PANTOPRAZOLE SO40 M1 PO; +VENTOLIN HFA108 MCG IN; +ZPAK PO
[2021-08-15] MEDS ORDERED: LORTAB 5/3255 MG PO (02:04)
[2021-08-15 02:09] VITALS: BP 139/76
== END 2021-08-15 02:43 | disposition home or self-care (01) ==
LOC: ED 01:27
DX: G89.29 Other chronic pain (principal); M54.9 Dorsalgia, unspecified; R07.81 Pleurodynia; I10 Essential (primary) hypertension; E78.5 Hyperlipidemia, unspecified; K21.9 Gastro-esophageal reflux disease without esophagitis; E66.01 Morbid (severe) obesity due to excess calories

== ENCOUNTER 2021-10-02 06:32 | Inpatient (IN) | payer MEDICAID ==
[~2021-10-02] VITALS: Ht 162.6 cm; Wt 148.0 kg
--- NOTE | 2021-10-02 06:50 | NUR ---
PT TO ROOM VIA WITH C/O LT FLANK PAIN EXTENDING INTO LT RIB AREA. STATES 08/04 AND HAS PAIN FOR THREE MONTHS. MOVED INDEPENDENTLY TO BED FROM .
--- NOTE | 2021-10-02 07:30 | NUR ---
PT MEDICATED PER MAR
[2021-10-02 07:40] LABS: GFR > 60 ML/MIN (>=60 (CALC)); GFR FOR AFR.AMER. > 60 ML/MIN (>=60 (CALC))
[2021-10-02 07:44] LABS: HEMATOCRIT 49.2 % (37.0-47.0); HEMOGLOBIN 15.6 g/dl (12.0-16.0); IMMATURE GRANULOCYTES 0.5 % (0.0-5.0); MEAN CORPUSCULAR HGB 32.4 pG CALC (26.0-32.0); MEAN CORPUSCULAR HGB CONC 31.7 g/dL CAL (32.0-36.0); NEUT# 2.45 thou/uL (2.00-7.15); RED BLOOD COUNT 4.82 mill/uL (4.20-5.60); RED CELL DISTRI WIDTH 16.1 % (11.5-15.5)
[2021-10-02 07:45] LABS: MEAN CELL VOLUME 102.1 fL CALC (80.0-100.0)
[2021-10-02 07:46] LABS: URINE BILIRUBIN - DIPSTICK NEGATIVE (NEGATIVE); URINE BLOOD DIPSTICK NEGATIVE (NEGATIVE); URINE COLOR YELLOW; URINE GLUCOSE - DIPSTICK NEGATIVE (NEGATIVE); URINE KETONE NEGATIVE (NEGATIVE); URINE LEUK ESTERASE TRACE (NEGATIVE); URINE PROTEIN - DIPSTICK NEGATIVE (NEG-TRACE)
[2021-10-02 07:48] LABS: URINE NITRITE - DIPSTICK POSITIVE (Negative)
[2021-10-02 07:56] LABS: URINE BACTERIA MANY hpf; URINE RBC 0-2 RBC/hpf (0-5)
[2021-10-02 07:57] LABS: URINE SQUAMOUS EPITHELIAL CELL FEW EPI/hpf (0-FEW)
[2021-10-02 07:58] LABS: ALBUMIN 3.1 g/dL (3.2-5.0); ANION GAP 11 (6-22 (CALC)); BILIRUBIN, TOTAL 1.3 mg/dL (0.0-1.4); BUN 5 mg/dL (7-17); BUN/CREATININE RATIO 7 (12-20 (CALC)); CARBON DIOXIDE 30 mmol/l (22-30); CHLORIDE 99 mmol/l (95-108); CREATININE 0.6 mg/dL (0.5-1.0); GFR > 60 ML/MIN (>=60 (CALC)); GFR FOR AFR.AMER. > 60 ML/MIN (>=60 (CALC)); LIPASE 55 u/l (23-300); POTASSIUM 3.1 mmol/l (3.5-5.1); SODIUM 137 mmol/l (137-146); TOTAL PROTEIN 7.4 g/dL (6.3-8.2)
[2021-10-02 07:59] LABS: ALKALINE PHOSPHATASE 104 u/l (38-126); SGOT/AST 79 u/l (14-36)
--- NOTE | 2021-10-02 08:46 | NUR ---
DR KRAMER AT BEDSIDE TO DISCUSS CLINICAL FINDINGS AND NEED FOR SURGERY
--- NOTE | 2021-10-02 09:10 | NUR ---
PT MEDICATED FOR PAIN PER MAR; EDGAR, [employer] AT BEDSIDE
--- NOTE | 2021-10-02 09:25 | NUR ---
OR TEAM AT BEDSIDE; REPORT GIVEN; PT TO OR IN STABLE CONDITION
[2021-10-02 13:07] VITALS: BP 93/52
--- NOTE | 2021-10-02 13:33 | NUR ---
REPORT RECEIVED FROM MARIO IN PACU, PT TRANSPORTED TO UNIT IN BED BY PACU STAFF @ 1300, VERY LETHARGIC BUT ORIENTED, RESPONDS TO QUESTIONS BUT HAS TO BE STIMULATED GROSSLY, O2 SATS ON 3L ON ARRIVAL = 82/83%, ATTEMPT TO AROUSE PT MORE FAILED AND SHE IS SLEEPY, RESP NOTIFIED AND APPLIED FACE MASK, SATS UP TO 90-92% ON 15L, TELE MONITOR PLACED, PUNCTURE X 3 TO ABD, MAURICE DRAIN IN PLACE TO RLQ WITH BLOODY DRAINAGE, VITAL SIGNS BEING MEASURED, SCD IN PLACE, BED IN LOWEST POSITION AND CALL SUAREZ IN REACH.
[2021-10-02 14:23] VITALS: BP 102/55
[2021-10-02 15:00] VITALS: BP 111/70
[2021-10-02 15:30] VITALS: BP 106/66
--- NOTE | 2021-10-02 16:39 | NUR ---
PT JUST WOKE UP FROM ARRIVING TO UNIT @ 1300 AND ABLE TO HAVE ADMISSION ASSESSMENT DONE. C/O LUQ PAIN @ 08/04 AT THIS TIME, MEDICATED, ASKING FOR SOMETHING TO DRING AND ADVISED OF NPO STATUS AND REASON FOR ORDER, ICE CHIPS GIVEN ORDERED, STATES UNDERSTANDING. CORTEZ CATHETER IN PLACE WITH YONG CLEAR URINE, CALL SUAREZ IN REACH, WILL CONTINUE TO MONITOR.
--- NOTE | 2021-10-02 19:31 | NUR ---
MAURICE DRESSING SATURATED WITH BLOOD, DRESSING REMOVED, DRAIN SPONGE AND ABD APPLIED, HS RN WILL CONTINUE TO MONITOR.
[2021-10-02 19:54] VITALS: BP 94/64
--- NOTE | 2021-10-02 20:30 | NUR ---
PATIENT RESTING IN BED QUIETLY. ALERT AND ORIENTED. ABLE TO MAKE NEEDS KNOWN. NO SIGNS OF DISTRESS NOTED AT THIS TIME. MAURICE DRAIN PATENT. ASSESSMENT COMPLETE. CALL LIGHT AND BELONGINGS REMAIN IN REACH.
--- NOTE | 2021-10-03 00:30 | NUR ---
PATIENT RESTING IN BED QUIETLY. NO COMPLAINTS VOICED AT THIS TIME. EMPTIED MAURICE DRAIN WITH 30CC OUT, BRIGHT RED BLOOD. CALL LIGHT AND BELONGINGS REMAIN IN REACH.
[2021-10-03 00:44] VITALS: BP 110/56
--- NOTE | 2021-10-03 01:29 | NUR ---
GAVE PATIENT PRN ZOFRAN AND ALSO PRN DILAUDID PER REQUEST FOR PAIN.
[2021-10-03 04:29] VITALS: BP 113/56
--- NOTE | 2021-10-03 04:45 | NUR ---
PATIENT RESTING IN BED. NO SIGNS OF DISTRESS NOTED AT THIS TIME. PATIENT DID PREVIOUSLY VOICE THAT PAIN MEDICATION DOES HELP TO SLOWLY SUBSIDE THE PAIN. PATIENT HAS AMBULATED WITH ASSISTANCE TO THE [facility] TWICE SO FAR THIS SHIFT. CALL LIGHT AND BELONGINGS REMAIN IN REACH.
[2021-10-03 06:10] LABS: HEMATOCRIT 45.2 % (37.0-47.0); MEAN CELL VOLUME 105.4 fL CALC (80.0-100.0); MEAN CORPUSCULAR HGB 32.6 pG CALC (26.0-32.0); RED BLOOD COUNT 4.29 mill/uL (4.20-5.60); RED CELL DISTRI WIDTH 16.4 % (11.5-15.5)
[2021-10-03 06:41] LABS: ANION GAP 8 (6-22 (CALC)); BUN 7 mg/dL (7-17); BUN/CREATININE RATIO 10 (12-20 (CALC)); CARBON DIOXIDE 31 mmol/l (22-30); CHLORIDE 101 mmol/l (95-108); CREATININE 0.7 mg/dL (0.5-1.0); GFR > 60 ML/MIN (>=60 (CALC)); GFR FOR AFR.AMER. > 60 ML/MIN (>=60 (CALC)); MAGNESIUM 1.9 mg/dL (1.6-2.3); SODIUM 137 mmol/l (137-146)
--- NOTE | 2021-10-03 07:00 | NUR ---
RECIEVED REPORT FROM NABILA CHU
--- NOTE | 2021-10-03 07:34 | NUR ---
DR ARRIETA AT BEDSIDE
--- NOTE | 2021-10-03 07:35 | NUR ---
DR ARRIETA AT BEDSIDE
--- NOTE | 2021-10-03 07:54 | NUR ---
PT RESTING IN SEMI FOWLERS POSITION. PT IS A/O X3. ASSESSMENT AND VITALS COMPLETED. BP 106/74, HR 74, O2 94% ON ROOM AIR. RESPIRATIONS ARE EVEN AND UNLABORED ON 6L NC. PT HOME DEPENDENT ON 4L AT HOME. LUNG SOUNHDS ARE CLEAR. HEART RHYTHM NORMAL WITH TELE IN PLACE, SR WITH PVC PER ORDER. BOWEL SOUNDS ACTIVE.#20G RFA INFUSING WITH IVF PER ORDER, SITE REMAINS HEALTHY AND PATENT.SKIN INTACT. SCDS IN PLACE. CORTEZ CATH IN PLACE,SURED WITH LEG STRAP. LAP SITE X3 NOTED WITH RLQ MAURICE DRAIN,20 BRIGHT RED DRAINAGE NOTED. BULB TO SUCTION. PT COMPLAINS OF 10/10 ABD PAIN, PT TO BE MEDICATED PER EMAR. PT DENIES OF ANY ADDITIONAL PAINS OR DISCOMFORTS AT THIS TIME. ALL SAFETY PRECAUTIONS ARE IN PLACE WITH CALL LIGHT IN REACH. WILL CONTINUE TO MONITOR.
[2021-10-03 08:00] VITALS: BP 106/74
--- NOTE | 2021-10-03 11:25 | NUR ---
DR HINOJOSA AND MARCELINO,ANANT AT BEDSIDE
[2021-10-03 11:32] VITALS: BP 100/67
--- NOTE | 2021-10-03 11:34 | NUR ---
DR HINOJOSA AND MARCELINO,ANANT AT BEDSIDE
--- NOTE | 2021-10-03 12:24 | NUR ---
PT SITTING UP IN CHAIR. RESPIRATIONS REMAINS EVEN AND UNLABORED ON 6L NC. #22G RFA INFUSING WITH IVF PER ORDER, SITE REMAINS HEALTHY AND PATENT. CORTEZ CATH IN PLACE. RLQ MAURICE DRAIN REMAINS IN PLACE, BULB SUCTIONED. PT DENIES OF ANY ADDITIONAL NEEDS. ALL SAFETY PRECAUTIONS ARE IN PLACE WITH CALL LIGHT IN REACH. WILL CONTINUE TO MONITOR
--- NOTE | 2021-10-03 13:20 | NUR ---
PT MEDICATD FOR 10/10 ABD PAIN. PT TOLERATED WELL
--- NOTE | 2021-10-03 14:41 | NUR ---
29 F BLOODY DRAINAGE NOTED FROM RLQ MAURICE DRAIN. BULB TO SUCTION. DRESSING REMAINS CDI.
[2021-10-03 14:50] VITALS: BP 96/58
--- NOTE | 2021-10-03 16:18 | NUR ---
PT SITTING UP IN RECYLINER WITH VISITOR AT BEDSIDE RESPIRATIONS ARE EVEN AND UNLABORED ON 6L NC. TELE MONITORING IN PLACE. #20G RFA INFUSING WITH IVF PER ORDER, SITE REMAINS HEALTHY AND PATENT. CORTEZ CATH IN PLACE, DRAINING PER GRAVITY. PT DENIES OF ANY PAINS OR DISCOMFORTS AT THIS TIME. ALL SAFETY PRECAUTIONS ARE IN PLACE WITH CALL LIGHT IN REACH. WILL CONTINUE TO MONITOR
[2021-10-03 19:00] VITALS: BP 111/57
--- NOTE | 2021-10-03 19:40 | NUR ---
PATIENT OBSERVED SITTING UP IN BED WATCHING TV. NO DISTRESS NOTED. ABLE TO MAKE NEEDS KNOWN. ASSESSMENT COMPLETE AT THIS TIME. CALL LIGHT AND BELONGINGS WITHIN REACH.
[2021-10-04] VITALS: BP 94/47
--- NOTE | 2021-10-04 | NUR ---
SUPERVISED PATIENT TRANSFERRING SELF TO BSC. PATIENT APPEARS STEADY ON HER FEET AND PIVOTS EASILY. CORTEZ CATHETER DRAINED WITH 700CC CLEAR YELLOW URINE. NO DISTRESS NOTED AT THIS TIME. TOLERATING CLEAR LIQUID DIET. CALL LIGHT AND BELONGINGS REMAIN IN REACH.
[2021-10-04 04:00] VITALS: BP 101/58
--- NOTE | 2021-10-04 04:57 | NUR ---
RESTING IN BED QUIETLY. NO DISTRESS NOTED. CALL LIGHT AND BELONGINGS REMAIN IN REACH.
[2021-10-04 05:34] LABS: HEMATOCRIT 40.2 % (37.0-47.0); HEMOGLOBIN 12.4 g/dl (12.0-16.0); MEAN CELL VOLUME 105.8 fL CALC (80.0-100.0); MEAN CORPUSCULAR HGB 32.6 pG CALC (26.0-32.0); MEAN CORPUSCULAR HGB CONC 30.8 g/dL CAL (32.0-36.0); RED BLOOD COUNT 3.8 mill/uL (4.20-5.60)
[2021-10-04 05:50] LABS: ANION GAP 4 (6-22 (CALC)); BUN 3 mg/dL (7-17); BUN/CREATININE RATIO 5 (12-20 (CALC)); CARBON DIOXIDE 33 mmol/l (22-30); CHLORIDE 100 mmol/l (95-108); CREATININE 0.7 mg/dL (0.5-1.0); GFR > 60 ML/MIN (>=60 (CALC)); GFR FOR AFR.AMER. > 60 ML/MIN (>=60 (CALC)); MAGNESIUM 1.9 mg/dL (1.6-2.3); POTASSIUM 3.2 mmol/l (3.5-5.1); SODIUM 134 mmol/l (137-146)
--- NOTE | 2021-10-04 07:00 | NUR ---
RECIEVED REPORT FROM NABILA CHU
[2021-10-04 07:50] VITALS: BP 113/69
--- NOTE | 2021-10-04 07:50 | NUR ---
PT RESTING IN SEMI FOWLERS POSITION. PT IS A/O X3. ASSESSMENT AND VITALS COMPLETED. BP 113/69, HR 75, O2 94% ON 6L NC. RESPIRATIONS ARE EVEN AND UNLABORED WITH NO DISTRESS NOTED. LUNG SOUNDS ARE CLEAR. HEART RHYTHM NORMAL. BOWEL SOUNDS ARE ACTIVE, LBM 10/02/21. PEDAL PULSES WEAK. #20G RFA INFUSINGWITH IVF PER ORDER, SITE REMAINS HEALTY AND PATENT. SKIN INTACT. LAP SITE X3 NOTED. RLQ WITH 10 ML OF BLOODY DRAINAGE EMPTIED, BULB TO SUCTION. CORTEZ CATH IN PLACE, YELLOW CLEAR URINE NOTED. PT COMPLAINS OF 10/10 ABD PAIN, PT TO BE MEDICATED PER EMAR. SCDS APPLIED. PT DENIES OF ANY ADDITIONAL NEEDS AT THIS TIME. ALL SAFETY PRECUATIONS ARE IN PLACE WITH CALL LIGHT IN REACH. WILL CONTINUE TO MONITOR.
--- NOTE | 2021-10-04 08:05 | NUR ---
DR ARRIETA AT BEDSIDE
--- NOTE | 2021-10-04 09:37 | NUR ---
ORAL CONTRAST ADMINISTERED AT THIS TIME. PT EDUCATED OF ORAL CONTRAST FOR CT. PT VERBALIZED UNDERSTANDING.
--- NOTE | 2021-10-04 10:20 | NUR ---
DR HINOJOSA AND AUBRIE,ANRP AT BEDSIDE
--- NOTE | 2021-10-04 10:46 | NUR ---
LAST ORAL CONTRAST ADMINISTERED.
[2021-10-04 10:51] VITALS: BP 100/57
--- NOTE | 2021-10-04 11:14 | NUR ---
S- pt reported incisional soreness. She stated she is drinking contrast for CT. 0- nursing contacted prior to treatment. Pt resting in bed semi reclined watching tv. LE ex performed in supine 2 x 10 reps with min assist given with RLE due to soreness. Ther ex including heelslide, hip abd/add, hip IR/ER, SAQ, and ankle DF/PF. She moved supine to sit with modified indep using bed rail. Standing with supervision and assist with lines. Transferring to chair, supervision. Pt stood from chair with supervision and was able to walk several steps forward and backwards mult times, side stepping and marching with CGA and no LOB noted. HR 76 to 80, 02 sats upper 90's with desat to upper 80's initially after activity but resolved quickly with deep breathing and rest. BP 100/57 to 107/75. Time spent with pt 45 min. A- pt with increased mobility today. [facility] E[facility] or HH P- will follow. and rest. BP 100/
--- NOTE | 2021-10-04 13:20 | NUR ---
PT TRANSPORTED TO CT VIA WHEELCHAIR ON 6L NC
[2021-10-04 15:42] VITALS: BP 99/55
--- NOTE | 2021-10-04 15:46 | NUR ---
PT SITTING UP IN RECYLINER ON PHONE. RESPIRATIONS ARE EVEN AND UNLABORED ON 6L NC. #20G RAC INFUSING WITH IVF PER ORDER, SITE REMAINS HEALTHY AND PATENT. CORTEZ CATH IN PLACE. TELE MONITORING IN PLACE. PT DENIES OF ANY PAINS OR DISCOMFORTS AT THIS TIME. ALL SAFETY PRECAUTIONS ARE IN PLACE WITH CALL LIGHT IN REACH. WILL CONTINUE TO MONITOR.
--- NOTE | 2021-10-04 17:11 | NUR ---
MAURICE DRESSING CHANGED DUE TO BEING SOILED. DRY DRESSING REMAINS CDI. 80 ML OF BLOODY OUTPUT NOTED.
[2021-10-04 19:10] VITALS: BP 104/55
--- NOTE | 2021-10-04 21:00 | NUR ---
PT RESTING IN BED WITH EYES CLOSED, EASILY AROUSED TO VERBAL STIMULI, PT ALERT AND ORIENTED X3, DISCUSSED POC, PT HAS 02 6LNC HUMIDIFIED. IS AT BEDSIDE DEMONSTRATED IT'S USE AND ABLE TO REACH 1000ML TOTAL VOLUME, CORTEZ DRAINING TO GRAVITY, ABD INCISIONS X3 WITH DERMABOND CDI; NOTED DRESSING TO RLQ WITH MAURICE X1, ASSESSMENT COMPLETED, CALL LIGHT IN REACH,CONTINUE TO MONITOR.
--- NOTE | 2021-10-04 23:19 | NUR ---
PT CALLED REQUESTING TO TAKE OFF OXYGEN, ASKED PT IF SHE USES O2 AT HOME SHE STATED "YES,3L" OXYGEN TUBING CHANGED FROM OR TUBING AND TO REGULAR NASAL CANULLA SLOWLY TITRATED DOWN TO HER BASELINE O2 WHILE MONITORING HER O2 SATURATION. PT STILL REMAINED AT 100% ON 3L, VITALS OBTAINED. CALL LIGHT IN REACH,CONTINUE TO MONITOR.
[2021-10-05] VITALS (7 sets, daily range): BP systolic 99–107; BP diastolic 51–68
--- NOTE | 2021-10-05 00:06 | NUR ---
PT RESTING IN BED, NO SIGNS OF DISTRESS NOTED, RESP EVEN AND UNLABORED. PT WATCHING TV, INITIATED IV ZOSYN, PT VOICES NO NEEDS OR COMPLAINTS AT THIS TIME, CALL LIGHT IN REACH,CONTINUE TO MONITOR.
--- NOTE | 2021-10-05 01:52 | NUR ---
PT CALLED C/O PAIN 06/04 PT MEDICATED FOR PAIN, EMPTIED MAURICE DRAIN OF 20CC BLOODY DRAINAGE. CALL LIGHT IN REACH,CONTINUE TO MONITOR.
--- NOTE | 2021-10-05 04:00 | NUR ---
PT RESTING IN BED WITH EYES CLOSED, NO SIGNS OF DISTRESS NOTED, RESP EVEN AND UNLABORED. CALL LIGHT IN REACH,CONTINUE TO MONITOR.
[2021-10-05 05:31] LABS: HEMATOCRIT 39.4 % (37.0-47.0); HEMOGLOBIN 12.3 g/dl (12.0-16.0); MEAN CELL VOLUME 105.3 fL CALC (80.0-100.0); MEAN CORPUSCULAR HGB 32.9 pG CALC (26.0-32.0); MEAN CORPUSCULAR HGB CONC 31.2 g/dL CAL (32.0-36.0); RED BLOOD COUNT 3.74 mill/uL (4.20-5.60); RED CELL DISTRI WIDTH 15.9 % (11.5-15.5)
[2021-10-05 05:55] LABS: ANION GAP 5 (6-22 (CALC)); BUN 2 mg/dL (7-17); BUN/CREATININE RATIO 3 (12-20 (CALC)); CARBON DIOXIDE 32 mmol/l (22-30); CHLORIDE 100 mmol/l (95-108); CREATININE 0.7 mg/dL (0.5-1.0); GFR > 60 ML/MIN (>=60 (CALC)); GFR FOR AFR.AMER. > 60 ML/MIN (>=60 (CALC)); POTASSIUM 3.1 mmol/l (3.5-5.1); SODIUM 134 mmol/l (137-146)
--- NOTE | 2021-10-05 09:00 | NUR ---
PT IS AWAKE, ALERT, ORIENTED X 3. PT UP TO BR WITH ASSIST. MAURICE SEEN IN PLACE, RIGHT ABDOMEN. PT WITH INTERMITTENT ABDOMINAL PAIN, STATES SOMEWHAT IMPROVED FROM YESTERDAY. LUNGS CLEAR, 3 LPM NC.
--- NOTE | 2021-10-05 15:31 | NUR ---
PT MEDICATED FOR PAIN AFTER PHYSICAL THERAPIST FINISHED. CORTEZ CATHETER REMOVED. PT OOB IN CHAIR AT BEDSIDE. SON VISITING.
--- NOTE | 2021-10-05 16:22 | NUR ---
Subjective: Patient states that she is moving and feeling better, getting up around the room with minimal discomfort. Objective: Patient did the following: Seated B LE exercises were carried out: knee extension, hip flexion, hip abduction, hamstring curls, ankle pumps for 10 reps x 2 sets with occasional verbal and tactile cuing to avoid trick mov't and exacerbation of abdominal muscle spasms. Patient also did sit to stand ADLs for 3 reps x 2 sets with SBA x 1. Assessment: Patient exhibiting improving functional weight bearing ADL tolerance and capability with decreased assistance due to improving muscle strength on B LE. Plan: Patient to continue working on strengthening exercise protocol and postural mechanics combined with practice of proper body mechanics to help decrease trick movements, exacerbation of muscle spasms, and fall risks. Am Pac score today is 13 points, discharge recommendation would be home health intervention and I agree with this recommendation.
--- NOTE | 2021-10-05 18:17 | NUR ---
PT CONTINUES OOB IN CHAIR AT BEDSIDE, NO DISTRESS. PAIN MEDS PRN.
--- NOTE | 2021-10-05 19:35 | NUR ---
report received from Jeremy Padron RN
--- NOTE | 2021-10-05 20:09 | NUR ---
report given to Benigno Stanford
--- NOTE | 2021-10-05 22:40 | NUR ---
PT MAURICE DRAIN CLOTTED. STRIPPING AND FLUSHING UNSUCCESSFUL. PER DR ARRIETA MAURICE WAS REMOVED. STITCHES REMOVED. WOUNDS IRRIGATED WITH SALIN. STERRI STRIP APPLIED. COVERED WITH AN AMDOMINAL PAD. PT TOLERATED PROCEDURE WELL. 10 CC OF BLOOD REMOVE.
[2021-10-06] VITALS (7 sets, daily range): BP systolic 70–116; BP diastolic 34–85
--- NOTE | 2021-10-06 03:26 | NUR ---
PT IN CHAIR C/O PAIN AND NAUSEA. PRN MEDICATION AVAILABLE AND GIVEN, ITEMS REMAIN WITHIN REACH, CALL SUAREZ REMAINS WITHIN REACH. BED REMAINS LOCKED AND IN LOW POSITION WITH BEDRAILS UP X2. WILL CONTINUE TO MONITOR.
[2021-10-06 05:09] LABS: HEMATOCRIT 38.8 % (37.0-47.0); MEAN CELL VOLUME 105.4 fL CALC (80.0-100.0); MEAN CORPUSCULAR HGB 32.6 pG CALC (26.0-32.0); MEAN CORPUSCULAR HGB CONC 30.9 g/dL CAL (32.0-36.0); RED BLOOD COUNT 3.68 mill/uL (4.20-5.60); RED CELL DISTRI WIDTH 15.8 % (11.5-15.5)
[2021-10-06 05:56] LABS: ANION GAP 9 (6-22 (CALC)); BUN 4 mg/dL (7-17); BUN/CREATININE RATIO 6 (12-20 (CALC)); CARBON DIOXIDE 29 mmol/l (22-30); CHLORIDE 99 mmol/l (95-108); CREATININE 0.8 mg/dL (0.5-1.0); GFR > 60 ML/MIN (>=60 (CALC)); GFR FOR AFR.AMER. > 60 ML/MIN (>=60 (CALC)); POTASSIUM 3.4 mmol/l (3.5-5.1); SODIUM 133 mmol/l (137-146)
--- NOTE | 2021-10-06 06:01 | NUR ---
PT REMAINS UP IN CHAIR; RESTING WITH EYES CLOSED; AWAKENS TO VERBAL STIMULI. C/O DISCOMFORT TO MAURICE REMOVAL SITE; DRESSING INTACT WITH MINIMAL SANGUINOUS DRAINAGE. ZOSYN INFUSING AT THIS TIME.
--- NOTE | 2021-10-06 12:06 | NUR ---
PT SEEN IN CHAIR AT START OF SHIFT. SHE HAD LOW BLOOD PRESSURE AND HAD MUCH PAIN TO GENERAL ABDOMINAL AREA. SHE WAS ASSISTED BACK TO BED, IV BOLUS BEGUN PER ORDER, PT DENIED PAIN MEDICINE UNTIL BP AGUSTIN ABOVE 95. PT REMAINS IN BED AT THIS TIME, AWAITS DR ARRIETA.
--- NOTE | 2021-10-06 15:11 | NUR ---
PT SEEN BY DR ARRIETA IN ROOM. UPON INITIAL EXAM SHE WAS HAVING PAIN ALL OVER ABDOMINAL AREA. DR GOLDBERG SUGGESTED NEED FOR SURGERY TO FIND OUT WHAT THE PROBLEM IS. MINUTES LATER UPON RETURN TO ROOM SHE STATED THAT SHE PASSED GAS AND FELT MUCH BETTER. SURGERY NOT NECESSARY.
--- NOTE | 2021-10-06 20:13 | NUR ---
PHYSICAL ASSESMENT COMPLETE. PT C/O PAIN AND DISCOMFORT. SCHEDULED MEDICATIONS AND PRN MEDICATION ADMINISTERED, SEE E-MAR. PT DENIES ANY NEEDS AT THIS TIME. PLAN OF CARE REVIEWED, PT DENIES QUESTIONS, VERBALIZES UNDERSTANDING. ITEMS WITHIN REACH, BED LOCKED IN LOW POSITION W/ BEDRAILS UP X2. CALL SUAREZ WITHIN REACH, AGREES TO CALL PRN.
--- NOTE | 2021-10-06 22:00 | NUR ---
PT BLEEDING FROM UPPER ABDOMINAL SURGICAL WOUND. CLEANED STERI STRIP PLACED WITH AN ABDOMINAL PAD AND COVERED WITH PAPER TAPE.
[2021-10-07] VITALS (16 sets, daily range): BP systolic 76–126; BP diastolic 52–61
--- NOTE | 2021-10-07 01:28 | NUR ---
PAIN MEDICATION GIVEN FOR PTS 10 OUT OF 10 PAIN. PERCOCET 5/[address] SHEA. WILL CONTINUT TO MONITOR.
--- NOTE | 2021-10-07 04:08 | NUR ---
PT SITTING IN LAZY BOY CHAIR WITH EYES CLOSED, APPEARS TO BE SLEEPING, APPEARS COMFORTABLE AND IN NO DISTRESS. RESPIRATIONS REGULAR AND UNLABORED. ITEMS REMAIN WITHIN REACH, CALL SUAREZ REMAINS WITHIN REACH. BED REMAINS LOCKED AND IN LOW POSITION WITH BEDRAILS UP X2. WILL CONTINUE TO MONITOR.
[2021-10-07 05:35] LABS: MEAN CELL VOLUME 103.5 fL CALC (80.0-100.0); MEAN CORPUSCULAR HGB 33.5 pG CALC (26.0-32.0); MEAN CORPUSCULAR HGB CONC 32.3 g/dL CAL (32.0-36.0); RED BLOOD COUNT 2.27 mill/uL (4.20-5.60); RED CELL DISTRI WIDTH 15.8 % (11.5-15.5)
[2021-10-07 05:51] LABS: HEMATOCRIT 23.5 % (37.0-47.0); HEMOGLOBIN 7.6 g/dl (12.0-16.0)
[2021-10-07 05:56] LABS: MAGNESIUM 1.9 mg/dL (1.6-2.3)
[2021-10-07 06:01] LABS: CREATININE 2.5 mg/dL (0.5-1.0); POTASSIUM 4.3 mmol/l (3.5-5.1)
--- NOTE | 2021-10-07 08:00 | NUR ---
PT SEEN OOB IN CHAIR, ALERT AND ORIENTED X 3. LUNGS CLEAR, 3 LPM NC. PT IS BLEEDING FROM SITE WHERE MAURICE WAS PULLED. THIS WAS REINFORCED WITH ABD. PT IN MODERATE DISTRESS PER PAIN TO GENERALIZED ABDOMINAL AREA.
[2021-10-07 08:12] LABS: HEMATOCRIT 24.5 % (37.0-47.0); HEMOGLOBIN 7.7 g/dl (12.0-16.0)
--- NOTE | 2021-10-07 11:57 | NUR ---
Attempted treatment this am, pt refused stating she was in pain, nursing in a aware. Will try again this pm.
[2021-10-07 13:00] LABS: HEMATOCRIT 22.8 % (37.0-47.0); HEMOGLOBIN 7.1 g/dl (12.0-16.0)
--- NOTE | 2021-10-07 14:56 | NUR ---
PT CONTINUES WITH BLEEDING FROM OLD MAURICE SITE. THIS WAS RECENTLY REDRESSED. PT AWARE OF NEED FOR BLOOD TRANSFUSION, PROVIDES WRITTEN CONSENT. PT TO CT AND BACK THIS AFTERNOON.
--- NOTE | 2021-10-07 14:59 | NUR ---
Attempted treatment againt this pm. Pt sitting in recliner stating she just got back from test and c/o pain. Pt refused treatment at this time.
--- NOTE | 2021-10-07 18:43 | NUR ---
DR ARRIETA HAS SUTURED THE BLEEDING AREA WHERE MAURICE USED TO BE, SEEN STOPPED. PT IS RECEIVING FIRST UNIT PRBCs WITHOUT ADVERSE REACTION.
--- NOTE | 2021-10-07 19:30 | NUR ---
PATIENT RESTING IN BED AT THIS TIME WITH O2 VIA NASAL CANNULA IN PLACE. 1ST UNIT OF PRBC'S FINISHED ORDERED VIA RIGHT FOREARM SITE. NO ADVERSE REACTION NOTED AT THIS TIME. VS TAKEN AND RECORDED. REMAINS AFEBRILE AT THIS TIME. DRESSING TO RIGHT ABD IS SATURAGTED WITH BLOOD, PATIENT GOWN ALSO SATURATED WITH BLOOD. OLD DRESSING REMOVED AND PATIENT WITH STEADY BLOODY DRAINAGE NOTED FROM RIGHT ABD POST-OP SITE. 10 PACK OF 4X4 GAUZE PADS APPLIED AND COVERED WITH ABD PAD. SECURED WITH SILK TAPE. TELE MONITOR IN PLACE. SAFETY PRECAUTIONS REINFORCED. CALL LIGHT IN REACH. WILL CONT TO MONITOR.
--- NOTE | 2021-10-07 20:16 | NUR ---
PATIENT RESTING IN ED AT THIS TIME WITH O2 VIA NASAL CANNULA IN PLACE. PATIENT IS AWAKE ALERT AND ORIENTEDX3. 2ND UNIT OF PRBC'S HUNG ORDERED-UNIT# [id number] VIA RIGHT FOREARM IV SITE. SITE IS HEALTHY AT THIS TIME. PATIENT WAS EDUCATED REGUARDING POSSIBLE ADVERSE REACTIONS INCLUDING CHILLS, FEVER, SHAKES, HEADACHE, BACKACHE. VERBALIZES UNDERSTANDING OF THE STATED. DRESSING TO RIGHT ADB INTACT WITH SOME SHADOWING NOTED AT THIS TIME. MONITORING PATIENT AT BEDSIDE.
--- NOTE | 2021-10-07 22:29 | NUR ---
PATIENT RESTING IN BED WITH O2 VIA NASAL CANNULA IN PLACE-O2 SAT IS 91% AT THIS TIME. 2ND UNIT OF PRBC'S FINISHED WITHOUT ANY ADAVERSE REACTION. PATIENT MEDICATED WITH DILAUDID 0.5MG IVP FOR PAIN TO LEFT ABD-10/10 ON PAIN SCALE. IVF NS PATENT AND INFUSING VIA RIGHT FOREARM SITE. RIGHT ABD DRESSING CONT TO HAVE BLOODY DRAINAGE FROM OLD MAURICE SITE. WILL REPEAT LAB WORK AT 2300. SAFETY PRECAUTIONS REINFORCED. CALL LIGHT IN REACH. WILL CONT TO MONITOR.
[2021-10-07 23:11] LABS: HEMATOCRIT 23.8 % (37.0-47.0); HEMOGLOBIN 7.5 g/dl (12.0-16.0)
[2021-10-08] VITALS (15 sets, daily range): BP systolic 78–108; BP diastolic 40–68
--- NOTE | 2021-10-08 00:05 | NUR ---
PATIENT RESTING IN BED WITH O2 VIA NASAL CANNULA-AWAKE ALERT AND ORIENTEDX3. DRESSING TO RIGHT ABD SATURATED IN BLOOD-10 PACK OF 4X4 GAUZES AND ABD. NEW DRESSING APPLIED AT THIS TIME-10PACK OF 4X4 GAUZE PADS AND ABD PAD-SECURED WITH SILK TAPE. TELE MONITOR IN PLACE. IVF NS PATENT AND INFUSING VIA RIGHT FOREARM SITE. SAFETY PRECAUTIONS REINFORCED. CALL LIGHT IN REACH. WILL CONT TO MONITOR.
--- NOTE | 2021-10-08 05:22 | NUR ---
PATIENT RESTING ION BED-DRESSING TO RIGHT LOWER ABD CDI AT THIS TIME. LAB WORK HAS BEEN DRAWN. PATIENT C/O 08/04 LEFT ABD PAIN-MEDICATED WITH DILADID 0.5MG IVP ORDERED. IVF NS PATENT AND INFUSING VIA RIGHT FOREARM SITE. PATIENT REMAINS NPO ORDERED. PATIENT STATES THAT SHE JUST WET THE BED. WILL ASSIST PATIENT WITH PERICARE AND CHANGE OF THE LINENS. SAFETY PRECAUTIONS REINFORCED. CALL LIGHT IN REACH. WILL CONT TO MONITOR.
--- NOTE | 2021-10-08 06:07 | NUR ---
PATIENT ASSISTED WITH PERINEAL CARE WITH SOAP AND WATER. PATIENT MAX ASSIST OOB TO THE CHAIR. LINENES WERE CHANGED. IVF NS PATENT AND INFUSING VIA RIGHT FOREARM SITE AT 100CC/HR. TELE MONITOR IN PLACE-LAST READING WAS SR-90. O2 VIA NASAL CANNULA IN PLACE. RIGHT ABD DRESSING CDI AT THIS TIME. SAFETY PRECAUTIONS REINFORCED. CALL LIGHT IN REACH. WILL CONT TO MONITOR.
[2021-10-08 06:43] LABS: HEMATOCRIT 21.2 % (37.0-47.0); HEMOGLOBIN 7.2 g/dl (12.0-16.0); RED BLOOD COUNT 2.18 mill/uL (4.20-5.60); RED CELL DISTRI WIDTH 18.6 % (11.5-15.5)
[2021-10-08 06:49] LABS: MEAN CELL VOLUME 97.2 fL CALC (80.0-100.0)
[2021-10-08 06:56] LABS: CREATININE 2.9 mg/dL (0.5-1.0); MAGNESIUM 2.1 mg/dL (1.6-2.3); POTASSIUM 4.5 mmol/l (3.5-5.1)
--- NOTE | 2021-10-08 09:41 | NUR ---
DR. ADAIR AND ENDY EDWARDS AT BEDSIDE DISCUSSING POC
--- NOTE | 2021-10-08 10:20 | NUR ---
PATIENT IS SITTING IN THE RECLINER. EXPLAIN TO PATIENT ABOUT THE BLOOD TRANSFUION AND REACTIONS. PATIENT VERBALIZED UNDERSTANDING. FIRST UNIT OF BLOOD STARTED. CALL LIGHT IN REACH.
--- NOTE | 2021-10-08 11:20 | NUR ---
PATIENT IS RESTING IN RECLINER NO DISTRESS NOTED. PATIENT STATED THAT SHE FEELS TIRED. 02 AT 4L VIA NC . VS OBTAIN. T-98.0, P-81, R- 20, B/P 88/52 AND 02 94%. PATIENT DENIES NEEDS AT THIS TIME. CALL LIGHT IN REACH.
--- NOTE | 2021-10-08 13:37 | NUR ---
IV THERAPY WITH PT AT THIS TIME. ATTEMPTING NEW IV SITE FOR BLOOD TRANSFUSION.
--- NOTE | 2021-10-08 13:58 | NUR ---
ER NURSE VASHTI ESTABLISHED NEW IV SITE LOCATED RAC 20G,FLUSHED WITH NO RESISTANCE.
--- NOTE | 2021-10-08 14:07 | NUR ---
Treatment held per nursing, trying to get new IV and then blood products.
--- NOTE | 2021-10-08 14:30 | NUR ---
SECOND UNIT OF BLOOD STARTED. PATIENT HAS NO DISTRESS NOTED AT THIS TIME. PATIENT DENIES NEEDS. CALL LIGHT IN REACH.
--- NOTE | 2021-10-08 14:44 | NUR ---
PURE WICK PLACE PER PATIENT REQUEST. CALL LIGHT IN REACH.
--- NOTE | 2021-10-08 14:59 | NUR ---
IV COMPROMISED 20G RAC. PT STATES AREA IS SUPER PAINFUL, CAN NOT STAND THE PAIN. NOTIFIED NABILA KINGSTON TO REATTEMPT IV. REMOVED IV BLOOD TRANSFUSION STOPPED AT THIS TIME.
--- NOTE | 2021-10-08 15:28 | NUR ---
CALLED ER AGAIN TO NOTIFY ABOUT COMPROMISED IV. NABILA NAZARIO WILL NOTIFY NABILA KINGSTON AGAIN.
--- NOTE | 2021-10-08 15:32 | NUR ---
NABILA KINGSTON REATTEMPT IV, UNSUCCESSFUL. STATES WILL COME BACK WITH ULTRASOUND FOR IV.
--- NOTE | 2021-10-08 16:36 | NUR ---
#2 BAG BLOOD IS READY BUT NO IV SITE HAS BEEN ACCESSED YET. AWAITING ON NABILA KINGSTON TO REATTEMPT IV.
--- NOTE | 2021-10-08 16:40 | NUR ---
NABILA KINGSTON CALLED UNABLE TO COME START IV ON PATIENT.
--- NOTE | 2021-10-08 17:30 | NUR ---
NOTIFIED ENDY EDWARDS. PT IN PAIN. CURRENTLY NO IV. ONE TIME IM DILAUDID PAIN GIVEN. PT WILL RECIEVE CENTRAL LINE LATER IN THE EVENING BY DR. KRAMER.
--- NOTE | 2021-10-08 18:41 | NUR ---
20 LAC ESTABLISHED ON PT. FLUSHED WITH NO RESISTANCE NOTED AND ABLE TO GET BLOOD RETURN.
--- NOTE | 2021-10-08 20:00 | NUR ---
PATIENT RESTING IN BED AT THIS TIME WITH O2 VIA NASAL CANNULA IN PLACE AT 3LPM. O2 SATS ARE 92%. AWAKE ALERT AND ORIENTEDX3. DR. KRAMER AT BEDSIDE TO INSERT CENTRAL LINE. PROCEDURE WAS EXPLAINED TO PATIENT AT LENGTH BUT PATIENT REFUSED TO HAVE LINE PLACED AT THIS TIME. IV SITE TO LAC PATENT AND IVF NS INFUSING AT 100CC/HR. DRESSING TO RIGHT ABD CDI AT THIS TIME. PURE WICK DRAINING YONG URINE. TELE MONITOR IN PLACE-SR-80. REFUSING SCD'S AT THIS TIME. ENCOURAGED USE OF IS Q1H WHILE AWAKE, SAFETY PRECAUTIONS REINFORCED. CALL LIGHT IN REACH. WILL CONT TO MONITOR.
--- NOTE | 2021-10-08 22:37 | NUR ---
PATIENT RESTING IN BED AT THIS TIME WITH O2 VIA NASAL CANNULA IN PLACE. AWAKE ALEERT AND ORIENTEDX3. IV SITE TO LAC IS HEALTHY WITH GOOD BLOOD RETURN. PRBC UNIT#[id number] HUNG VIA LAC SITE. PATIENT REEDUCATED REGUARDING POSSIBLE ADVERSE REACTIONS TO BLOOD TRANSFUSIONS INCLUDING- CHILLS, SHAKES, FEVER, BACK ACJHE OR HEADACHE. VERBALIZES UNDERSTANDING. PATIENT WITH PUREWICK IN PLACE DRAINING YONG URINE. DRESSING TO RIGHT LOWER ABD INTACT-CDI AT THIS TIME. TELE MONITOR IN PLACE WITH LAST READING SR-80. MONITORING PATIENT AT BEDSIDE PER [facility] BLOOD TRANSFUSION PROTOCOL.
[2021-10-09] VITALS (12 sets, daily range): BP systolic 91–136; BP diastolic 49–74
--- NOTE | 2021-10-09 01:30 | NUR ---
PATIENT RESTING IN BED AT THIS TIME WITH O2 VIA NASAL CANNULA IN PLACE AT 3LPM. O2 SATS 92% AT THIS TIME. EYES ARE CLOSED AND RESPS ARE EVEWN AND UNLABORED. PRBC'S COMPLETED WITH NO ADVERSE REACTION. IVF NS INFUSING VIA LAC SITE AT 100CC/HR. SITE REMAINS HEALTHY A THIS TIME. TELE MONITOR IN PLACE. PUREWICK IN PLACE AND DRAINING YONG URINE. CALL LIGHT IN REACH. WILL CONT TO MONITOR.
[2021-10-09 06:06] LABS: HEMATOCRIT 25.4 % (37.0-47.0); HEMOGLOBIN 8.2 g/dl (12.0-16.0); MEAN CELL VOLUME 98.1 fL CALC (80.0-100.0); MEAN CORPUSCULAR HGB 31.7 pG CALC (26.0-32.0); MEAN CORPUSCULAR HGB CONC 32.3 g/dL CAL (32.0-36.0); RED BLOOD COUNT 2.59 mill/uL (4.20-5.60); RED CELL DISTRI WIDTH 19.2 % (11.5-15.5)
--- NOTE | 2021-10-09 06:15 | NUR ---
PATIENT INCONT OF URINE-PUREWICK LEAKING. PATIENT ASSISTED OOB TO BSC FOR MODERATE AMT OF LOOSE BROWN STOOL. ASSISTED WITH PERICARE. LINENS CHANGED AND PATIENT ASSISTED BACK INTO BED. DRESSING TO RIGHT ABD REMAINS CDI. IVF NS PATENT AND INFUSING VIA LAC SITE AT 100/HR. PUREWICK BACK IN PLACE DRAINING YONG URINE. PATIENT MEDICATED WITH DILAUDID 0.5MG IVP FOR 10/10 ABD PAIN. SAFETY PRECAUTIONS REINFORCED. CALL LIGHT IN REACH WILL CONT TO [id number].
[2021-10-09 06:18] LABS: MAGNESIUM 2.2 mg/dL (1.6-2.3); POTASSIUM 3.9 mmol/l (3.5-5.1)
[2021-10-09 06:27] LABS: CREATININE 1.5 mg/dL (0.5-1.0)
--- NOTE | 2021-10-09 08:00 | NUR ---
PT SITTING ON RECLINER UPOM ENTERING ROOM. TELE MONITOR IN PLACE. REPORTS OF NOT HAVING ANY PAIN AT THIS TIME. VITALS AND ASSESMENT ALLOWED: PT IS A&O X3, LUNG SOUNDS ARE CLEAR UPON AUSCULATION. HEART SOUNDS ARE REGULAR. DRESSING I CDI. PT TRIES TO SCAB AT THE CLEAR GLUE ON THE BELLY BUTTON. INSTRUCTED NOT TO DO SO. BOWEL SOUNDS ARE HEARD X4. FALL PRECAUTIONS ARE IN PLACE. O2 NASAL CANNULA 3L HUMIDIFIED. PT HAS AN IV ON THE RFA 20G.BUT LATER TODAY WILL HAVE A A CENTRAL LINE ACCESS PROCEDURE. FLUSHED IV WITH NO RESISTANCE. CALL LIGHT AND PERSONAL ITEMS ARE WITHIN REACH.
--- NOTE | 2021-10-09 08:27 | NUR ---
PT TAKEN VIA WC WITH O2 VIA NC @2L IN PLACE IN STABLE CONDITION TO RADIOLODY FOR INSERTION OF PICC LINE
--- NOTE | 2021-10-09 09:08 | NUR ---
PT ARRIVED VIA WC FROM RADIOLOGY AFTER PICC LINE INSERTION
--- NOTE | 2021-10-09 12:00 | NUR ---
PT EATING LUNCH IN ROOM. REPORTS NO PAIN AT THIS TIME. CALL LIGHT WITHIN REACH TELE MONITOR IN PLACE. FALL PRECAUTION ARE IN PLACE.
--- NOTE | 2021-10-09 12:00 | NUR ---
PT NOW HAS A DOUBLE LUMEN CENTRAL LINE. FLUSHED WITH NO RESISTANCE AND ABLE TO GET BLOOD RETURN FROM BOTH LUMENS.
--- NOTE | 2021-10-09 14:24 | NUR ---
DR. ARRIETA WITH PT AT BEDSIDE
--- NOTE | 2021-10-09 16:40 | NUR ---
S- Pt reported being tried, and with abdominal soreness. 0- Pt cooperated with treatment with much encouragement but refused OOB or sitting. AROM ex performed 2 x 10 reps in supine. Bp 98/65 (nursing aware), HR 76, 02 sats low 90's. A- [facility] 10 ECF. Pt without adverse reaction noted from treatment. P- [place] follow.
--- NOTE | 2021-10-09 17:21 | NUR ---
PT SLEEPING IN ROOM. NO DISTRESS NOTED. CALL LIGHT WITHIN REACH. BREATHING IS EVEN AND UNLABORED. TELE MONITOR IN PLACE.
--- NOTE | 2021-10-09 18:42 | NUR ---
CRITICAL LAB RECEIVED, VALUE CALLED TO DR ADAIR. 2 PRBC AND CBC TO BE DRAWN IN THE AM PER DR ADAIR.
--- NOTE | 2021-10-09 22:40 | NUR ---
BLOOD PICKED UP FROM BLOOD BANK, VERIEF WITH Britt HICKS LPN.
--- NOTE | 2021-10-09 22:40 | NUR ---
BLOOD BEGAN AT THIS TIME
--- NOTE | 2021-10-09 22:55 | NUR ---
VITALS TAKEN AT THSI TIME, SEE INFUSION RECORD.
[2021-10-10] VITALS (9 sets, daily range): BP systolic 91–117; BP diastolic 55–67
--- NOTE | 2021-10-10 00:15 | NUR ---
NOTIFIED DR ARRIETA OF HEMATOMA TO RLQ, NOTICEABLY LARGER THAN UPON ASSEMENT. NO NEW ORDERS RECEIVED
--- NOTE | 2021-10-10 01:24 | NUR ---
SECOND BAG OF BLOOD HUNG AT THIS TIME. SMALL DELAY RELATED TO LAB ERROR. DID NOT PASS 15 MIN MARKER
[2021-10-10 05:41] LABS: HEMATOCRIT 26.1 % (37.0-47.0); HEMOGLOBIN 8.4 g/dl (12.0-16.0); MEAN CELL VOLUME 97.8 fL CALC (80.0-100.0); MEAN CORPUSCULAR HGB 31.5 pG CALC (26.0-32.0); MEAN CORPUSCULAR HGB CONC 32.2 g/dL CAL (32.0-36.0); RED BLOOD COUNT 2.67 mill/uL (4.20-5.60); RED CELL DISTRI WIDTH 17.9 % (11.5-15.5)
[2021-10-10 05:52] LABS: ANION GAP 6 (6-22 (CALC)); BUN 13 mg/dL (7-17); BUN/CREATININE RATIO 14 (12-20 (CALC)); CARBON DIOXIDE 28 mmol/l (22-30); CHLORIDE 105 mmol/l (95-108); CREATININE 0.9 mg/dL (0.5-1.0); GFR > 60 ML/MIN (>=60 (CALC)); GFR FOR AFR.AMER. > 60 ML/MIN (>=60 (CALC)); POTASSIUM 3.5 mmol/l (3.5-5.1); SODIUM 136 mmol/l (137-146)
--- NOTE | 2021-10-10 09:00 | NUR ---
PT IS AWAKE, ALERT, SEEN AT REST IN THE BED. SHE CONTINUES WITH ABDOMINAL DISCOMFORT, LAST BM YESTERDAY. ABD NOTED TO RIGHT ABDOMEN WITHOUT MUCH DRAINAGE.
--- NOTE | 2021-10-10 10:35 | NUR ---
Attempted treatment this am but pt refused, will return at 2pm, pt aware.
--- NOTE | 2021-10-10 12:38 | NUR ---
PT MEDICATED RECENTLY FOR ABOMINAL PAIN. PT BEING WASHED UP AND TO BE IN CHAIR SOON.
--- NOTE | 2021-10-10 14:31 | NUR ---
S- pt stated she did not want to get up she just got comfortable. Pt required much encouragement to participate in treatment. 0- Pt OOB in chair playing game on phone. Pt moving sit to and from stand with CGA/min assist. She took 3 steps forwards and 3 steps back, stating she can not do any more due to pain. Pt required mod assist to reposition her self. Pt posture was flexed, unable to straighten up due to c/o abdominal pain. LE ex performed in sitting for LAQ, marching, hip abd/add and ankle active DF/PF x 20 reps each. BP 109/73 to 101/68, HR 85 to 88, 02 97% to 92%. 0- pt limited by c/o pain and weakness. [facility] 11 ECF P- Will follow
--- NOTE | 2021-10-10 14:42 | NUR ---
Addendum time spent with PT 30 min, pt left in chair with call pathak in reach and bedside tray infront of her.
[2021-10-10 18:03] LABS: HEMATOCRIT 29.4 % (37.0-47.0); HEMOGLOBIN 9.5 g/dl (12.0-16.0)
--- NOTE | 2021-10-10 20:00 | NUR ---
PT IS AWAKE IN BED UPON ENTERING ROOM. PT ON O2 3L NC, TELE MONITOR IN PLACE SHOWING SR 86, CONTINOUS MONITORING BY ED. ASSESSMENT ALLOWED AT THIS TIME: LUNG SOUNDS ARE CLEAR UPPER/ LOWER LOBES. HEART SOUNDS ARE REGULAR. BOWEL SOUNDS ACTIVE X4, PT HAS A PICC LINE WITH A DOUBLE LUMEN ON THE BAO. FLUSHED BOTH OF THEM WITH NO RESISTANCE ABLE TO GET BLOOD RETURN THROUGH BOTH LUMENS. DRESSING IS CDI. CALL LIGHT ANF PERSONAL ITEMS ARE WITHIN REACH.
--- NOTE | 2021-10-10 23:00 | NUR ---
PT STATES PAIN MEDICATION IS NOT WORKING, THAT (DATA MANAGEMENT CONSULTANT) DID NOT GIVE CORRECT MEDICATION. I SHOWED PT IN EMAR THE MEDICATION,DOSE AND TIME GIVEN. SHOWED PT NAME AND . PT SAW AND UNDERSTOOD. PT STATES NO OTHER NEEDS AT THIS TIME. CALL LIGHT AND PERSONAL ITEMS ARE WITHIN REACH.
[2021-10-11] VITALS (7 sets, daily range): BP systolic 90–117; BP diastolic 56–71
--- NOTE | 2021-10-11 | NUR ---
PT SLEEPING IN ROOM. NO DISTRESS NOTED. TELE MONITOR IS IN PLACE,SHOWING SR 86 CONTINOUS MONITORING BY ED. CALL LIGHT WITHIN REACH.
--- NOTE | 2021-10-11 04:08 | NUR ---
PT SLEEPING IN BED. NO DISTRESS NOTED. TELE MONITOR IN PLACE. FALL PRECAUTIONS IN PLACE, CALL LIGHT AND PERSONAL ITEMS ARE WITHIN REACH.
[2021-10-11 05:39] LABS: HEMATOCRIT 28.6 % (37.0-47.0); MEAN CELL VOLUME 101.4 fL CALC (80.0-100.0); MEAN CORPUSCULAR HGB 31.9 pG CALC (26.0-32.0); MEAN CORPUSCULAR HGB CONC 31.5 g/dL CAL (32.0-36.0); RED BLOOD COUNT 2.82 mill/uL (4.20-5.60); RED CELL DISTRI WIDTH 18.3 % (11.5-15.5)
[2021-10-11 05:54] LABS: ANION GAP 8 (6-22 (CALC)); BUN 12 mg/dL (7-17); BUN/CREATININE RATIO 12 (12-20 (CALC)); CARBON DIOXIDE 30 mmol/l (22-30); CHLORIDE 99 mmol/l (95-108); GFR 58 ML/MIN (>=60 (CALC)); GFR FOR AFR.AMER. > 60 ML/MIN (>=60 (CALC)); POTASSIUM 3.2 mmol/l (3.5-5.1); SODIUM 134 mmol/l (137-146)
--- NOTE | 2021-10-11 09:00 | NUR ---
PT IN HIGH TARIQ'S POSITON RESTING WITH EYES CLOSED; AROUSED EASILY TO VERBAL STIMULI; PT C/O ABD PAIN 5/10, WILL MEDICATED; BAO DOUBLE LUMEN PICC LINE IN PLACE, NO REDNESS OR EDEMA NOTED; FLUSHES WELL; CORTEZ CATH DRAINING TO BEDSIDE DRAIN WITHOUT DIFFICULTY; CALL SUAREZ WITHIN REACH; WILL CONTINUE TO MONITOR
--- NOTE | 2021-10-11 09:58 | NUR ---
MD IN TO SEE PT; PLAN OF CARE DISCUSSED;
--- NOTE | 2021-10-11 10:35 | NUR ---
PHYSICAL THERAPY IN WITH PT.
--- NOTE | 2021-10-11 10:37 | NUR ---
PT REFUSED PHYSICAL THERAPY
--- NOTE | 2021-10-11 10:46 | NUR ---
Attempted treatment this am, she was in bed with eyes closed. Stated she was going to go to rehab. Pt refused therapy at this time, "I can't do it now", did not sleep last pm. Pt informed that therapist would return after lunch.
--- NOTE | 2021-10-11 14:11 | NUR ---
PHYSICAL THERAPY IN WITH PT; PT ABLE TO AMBULATE IN ROOM WITH USE OF WALKER AND MIN ASSISTANCE; WILL CONTINUE TO MONITOR.
--- NOTE | 2021-10-11 14:24 | NUR ---
S- "I can do anything now" 0- pt required much encouragement to participate in treatment and finally agreed. LE ex performed 2x10 reps in sitting including hip abd/add, LAQ ankle DF/PF. Pt stood from chair and walked with RW 6' forward and then walked backwards 6' with CGA. This was performed 2 times. Her BP was stable at 110/69, HR stable 83-85, 02 sats 93%, desat initially after sitting to mid 80's with quick recovery with deep breathing. Spoke with nursing to encourage ambulation in room over weekend. A- [facility] 13 ECF P- will follow per POC.
--- NOTE | 2021-10-11 15:35 | NUR ---
PT MEDICATED ORDERED FOR C/O ABD PAIN 08/04; CALL SUAREZ WITHIN REACH; WILL CONTINUE TO MONITOR.
--- NOTE | 2021-10-11 17:14 | NUR ---
PT ASSISTED BACK TO BED BY HEALTH PHYSICIST; MODERATE ASSIST REQUIRED; WILL CONTINUE TO MONITOR
--- NOTE | 2021-10-11 20:00 | NUR ---
PT IN LOW FOWLERS POSITION IN THE BED WATCHING TV W/VISITOR AT BEDSIDE. ASSESSMENT COMPLETED AT THIS TIME. DRESSING TO RLQ CDI, PUREWICK IN PLACE AT THIS TIME SET TO LOW CONTIN SUCTION. PT DENIES ANY NEEDS AT THIS TIME OTHER THAN REPORTING PAIN 10/10 ON PAIN SCALE AND STATING "I CAN'T HAVE THE PAIN MEDICAITON FOR ANOTHER 45 MINUTES." I ADVISED THAT I WILL CHECK ORDERS AND BRING HER PAIN MEDICATION SOON ORDERS WILL ALLOW, NO DISTRESSES VISUALIZED, PT APPEARS CALM AND TALKING TO VISITOR. DENIED ANY OTHER COMFORT MEASURES WHEN OFFERED AT THIS TIME. INSTRUCTED PT TO CALL IF ANY OTHER NEEDS ARISE, VERBALIZED UNDERSTANDING.
--- NOTE | 2021-10-11 20:50 | NUR ---
VISITOR LEFT THE PT'S ROOM AT THIS TIME.
--- NOTE | 2021-10-11 21:10 | NUR ---
PT MEDICATE ORDERS PROVIDE AND FOR PAIN. PT APPEARS CALM AND NON-DISTRESSED. SHE IS WATCHING WRESTLING ON TV. SHE REPORTS HAVING WALKED TO RESTROOM W/HER "FRIENDS HELP." SHE DID REPORT THAT THE ABSTRACT CLERK'S ASSISTED HER BACK TO THE BED W/OUT ISSUE.
--- NOTE | 2021-10-11 21:13 | NUR ---
ICE CHIPS PROVIDED PER REQUEST.
--- NOTE | 2021-10-12 01:15 | NUR ---
PT MEDICATED FOR PAIN 10/10 ON PAIN SCALE. PT ASKING FOR GINGERALE TO TRY AND BURP FOR COMFORT. TV IS ON. ABD AT R.SIDE CHECKED FOR EDEMA/BLEEDING, NO BLEEDING VISUALIZED/DRESSING CDI.
--- NOTE | 2021-10-12 02:14 | NUR ---
PT STILL AWAKE, REPORTS PAIN MEDICATION IS HELPING SOME. I ASSISTED HER POSITIONING PILLOWS FOR COMFORT. SHE IS WATCHING TV. DENIED ANY SNACK AT THIS TIME.
[2021-10-12 03:44] VITALS: BP 102/68
--- NOTE | 2021-10-12 05:24 | NUR ---
PT MEDICATED FOR PAIN AND BLOOD DRAWN FOR LABS
[2021-10-12 06:20] LABS: HEMATOCRIT 29.8 % (37.0-47.0); HEMOGLOBIN 9.3 g/dl (12.0-16.0); MEAN CORPUSCULAR HGB 31.2 pG CALC (26.0-32.0); MEAN CORPUSCULAR HGB CONC 31.2 g/dL CAL (32.0-36.0); RED BLOOD COUNT 2.98 mill/uL (4.20-5.60); RED CELL DISTRI WIDTH 17.8 % (11.5-15.5)
[2021-10-12 06:25] LABS: ANION GAP 6 (6-22 (CALC)); BUN 11 mg/dL (7-17); BUN/CREATININE RATIO 12 (12-20 (CALC)); CARBON DIOXIDE 35 mmol/l (22-30); CHLORIDE 95 mmol/l (95-108); CREATININE 0.9 mg/dL (0.5-1.0); GFR > 60 ML/MIN (>=60 (CALC)); GFR FOR AFR.AMER. > 60 ML/MIN (>=60 (CALC)); MAGNESIUM 1.8 mg/dL (1.6-2.3); SODIUM 134 mmol/l (137-146)
[2021-10-12 07:31] VITALS: BP 100/41
--- NOTE | 2021-10-12 08:00 | NUR ---
REPORT RECEIVED FROM NABILA ORTIZ. PT AWAKE ALERT AND APPROPRIATE. POC REVIEWED. PT AGREABLE TO INCREASE ADL'S AFTER NEXT PAIN MEDICATION ADMINISTRATION. ASSESSMENT PREFORMED. VSS. INSTRUCTED PT TO USE CALL LIGHT FOR ASSISTANCE, VERBALIZES UNDERSTANDING.
--- NOTE | 2021-10-12 09:31 | NUR ---
PTY GIVEN DILAUDID AT THIS TIME FOR ABDOMINAL PAIN BP IS 97/55 MAP OF 73. CASE BRIEFER GIVES APPROVAL TO GIVE MEDICATION. PT CALL LIGHT WITHIN REACH. INSTRUCTED PT TO CALL FOR ASSISTANCE, VERBALIZES UNDERSTANDING.
[2021-10-12 11:07] VITALS: BP 103/58
--- NOTE | 2021-10-12 11:26 | NUR ---
PT GIVEN POTASSIUM AT THIS TIME. REFUSING TO GET OOB AT THIS TIME. STATES "MY HEAD HURTS AND I JUST DONT FEEL LIKE GETTING OUT OF BED." VSS, CALL LIGHT WITHIN REACH. INSTRUCTED PT TO CALL FOR ASSISTANCE, VERBALIZES UNDERSTANDING.
--- NOTE | 2021-10-12 13:32 | NUR ---
PT GIVEN PAIN MEDICATION AT THIS TIME STATES "I THINK I DID TOO MUCH" PT WAS ATTEMPTING TO SWING LEGS TO A SITTING AT THE SIDE OF THE BED POSITION. GIVEN ADDITIONAL DOSE OF POTASSIUM AT THIS TIME. PT REMAINS SITTING AT SOB AFTER PAIN MEDICATION ADMINISTRATION. WILL CONTINUE TO MONITOR.
[2021-10-12 15:48] VITALS: BP 129/69
[2021-10-12 19:35] VITALS: BP 115/58
--- NOTE | 2021-10-12 21:19 | NUR ---
PT MEDICATED ORDERS PROVIDE AND CENTRAL LINE FLUSHED PATENT X2. PAIN MEDICATION SCHEDULE REVIEWED BY PT AT THIS TIME, SHE IS ASKING ME TO BRING PAIN MEDICATION IN SOON IT WILL LET ME. PT IS TALKING AND LAUGHING, REPORTS "MOSTLY GAS PAIN" I PROVIDED EDUCATION ON MOVEMENT FOR TREATING THIS, VERBALIZED UNDERSTANDING.
--- NOTE | 2021-10-12 22:13 | NUR ---
PT CALLED ASKING FOR PAIN MEDICATION, MEDICATED AT THIS TIME. FOR "12/10" ON PAIN SCALE. SHE IS HEARD [place], BUT ASKING WHERE HER PHONE IS, PROVIDED, THEN SHE HANDED ME A SECOND PHONE ASKING ME TO PLUG IT INTO A TRAVEL CLERK.
--- NOTE | 2021-10-12 23:00 | NUR ---
PT CALLED TO REPORT PUREWICK SEEMED TO BE LEAKING, PUREWICK WAS REMOVED/APPEARED VERY SOILED. MARYANA-CARE PROVIDED TO THE BEST ABILITY OF PT AND STAFF ASSIST AT THIS TIME. THE PT REFUSED TO GET OUT OF THE BED FOR FURTHER CLEANING. NEW PUREWICK PLACED PER PT REQUEST AND IS SUCTIONING TO LOW CONTIN SUCTION AT THIS TIME.
[2021-10-13] VITALS (7 sets, daily range): BP systolic 93–113; BP diastolic 54–76
--- NOTE | 2021-10-13 02:20 | NUR ---
PT CALLED ASKING FOR PAIN MEDICATION, V/S ASSESSED FOR BP AND PT MEDICATED ACCORDINGLY PER ORDERS. NEW ICEPACK PROVIDED AND PT ASKED FOR ICECHIPS/PROVIDED.
--- NOTE | 2021-10-13 05:20 | NUR ---
BLOOD DRAWN FOR LAB. PT IS ASKING ABOUT WHEN SHE CAN HAVE HER PAIN MEDICATION AGAIN. I ADVISED HER THAT IT WAS AN HOUR EARLY AND I WAS NOT ABLE TO PROVIDE IT YET AT THIS TIME, SHE VERBALIZED UNDERSTANDING. I ATTEMPTED TO EDUCATE HER ON NEEDING TO START DEPENDING ON AN ORAL PAIN MEDICATION, SHE REPORTED THAT SHE REACTS NEGATIVELY TO ALL PO PAIN MEDICATIONS AND THAT "THEY TRIED THAT ALREADY."
[2021-10-13 06:17] LABS: HEMATOCRIT 29.8 % (37.0-47.0); HEMOGLOBIN 9.1 g/dl (12.0-16.0); MEAN CELL VOLUME 103.1 fL CALC (80.0-100.0); MEAN CORPUSCULAR HGB 31.5 pG CALC (26.0-32.0); MEAN CORPUSCULAR HGB CONC 30.5 g/dL CAL (32.0-36.0); RED BLOOD COUNT 2.89 mill/uL (4.20-5.60); RED CELL DISTRI WIDTH 17.6 % (11.5-15.5)
[2021-10-13 06:24] LABS: ALBUMIN 2.4 g/dL (3.2-5.0); ALKALINE PHOSPHATASE 65 u/l (38-126); ANION GAP 4 (6-22 (CALC)); BILIRUBIN, TOTAL 2.7 mg/dL (0.0-1.4); BUN 12 mg/dL (7-17); BUN/CREATININE RATIO 13 (12-20 (CALC)); CARBON DIOXIDE 37 mmol/l (22-30); CHLORIDE 96 mmol/l (95-108); CREATININE 0.9 mg/dL (0.5-1.0); GFR > 60 ML/MIN (>=60 (CALC)); GFR FOR AFR.AMER. > 60 ML/MIN (>=60 (CALC)); POTASSIUM 3.5 mmol/l (3.5-5.1); SGOT/AST 47 u/l (14-36); SODIUM 133 mmol/l (137-146); TOTAL PROTEIN 6.3 g/dL (6.3-8.2)
--- NOTE | 2021-10-13 08:00 | NUR ---
REPORT RECEIVED FROM NABILA ORTIZ. PT AWAKE ALERT AND APPROPRIATE. VSS. CALL LIGHT WITHIN REACH. INSTRUCTED PT TO CALL FOR ASSISTANCE, VERBALIZES UNDERSTANDING.
--- NOTE | 2021-10-13 14:15 | NUR ---
PT GIVEN PAIN MEDICATION AT THIS TIME, AND SUTURE REMOVED TO RLQ PT TOLERATED WELL. NO EVIDENCE OF BLEEDING OBSERVED. SITE LEFT PACKING ROOM INSPECTOR. PT CALL LIGHT WITHIN REACH. INSTRUCTED TO CALL FOR ASSISTANCE, VERBALIZES UNDERSTANDING.
--- NOTE | 2021-10-13 16:00 | NUR ---
PT VSS, USING BSC FOR BATHROOM NEEDS. DENIES NEEDS OR CONCERNS AT THIS TIME. NO NEW EVENTS TO REPORT AT THIS TIME. CALL LIGHT WITHIN REACH. INSTRUCTED PT TO CALL FOR ASSISTANCE, VERBALIZES UNDERSTANDING.
--- NOTE | 2021-10-13 18:55 | NUR ---
PT CALLED ASKING ABOUT HIS DINNER TRAY. PT HAD NOT YET RECEIVED DINNER, HIS TRAY WAS STILL ON THE KITCHEN CART/PROVIDED. HE REPORTED THAT HE ASKED FOR SOUP/KITCHEN NOTIFIED AT THIS TIME. NO OTHER S/O DISTRESS OR NEEDS. PT POSITIONED FOR DINNER.
--- NOTE | 2021-10-13 19:10 | NUR ---
PT CALLED ASKING TO GO TO THE BSC, UPON ENTERING THE ROOM, SHE REPORTED PASSING LARGE AMOUNT OF GAS AND URINATING AT THE SAME TIME. ASSISTED PT UP TO RECLINER USING WALKER AND 1X ASSIST, SHE TOLERATED WELL. PADS REMOVED AND FRESH PROVIDED TO BED. PT MEDICATED FOR PAIN AND EDUCATION PROVIDED ON SPACING USE OF PAIN MEDICATIONS OUT AND REMINDING HER THAT SHE WILL NOT BE ABLE TO BE DC'D ON DILAUDID, SHE VERBALIZED UNDERSTANDING. SHE WAS TELLING ME THAT IT "WAS TIME FOR IT AN HOUR AGO" I EDUCATED HER ON PRN STATUS AND USE OF PAIN MEDICATIONS AND NEEDING TO WEEN AND TAPER FROM THEM. SHE IS REFUSING PO PAIN MEDICATIONS AT THIS TIME.
--- NOTE | 2021-10-13 19:34 | NUR ---
V/S ASSESSED AT THIS TIME. DINNER TRAY REMOVED, 50% EATEN. PT LEFT SITTING IN RECLINER WITH LIGHTS AND TV ON
--- NOTE | 2021-10-13 21:31 | NUR ---
PT WAS SITTING IN THE RECLINER. SHE CALLED TO REPORT THAT SHE SELF AMBULATED TO THE BSC AND NEEDED ASSISTANCE WIPING. PT WAS ASSISTED CLEANING AND MARYANA-CARE BY MYSELF AND ASSISTED BACK TO THE RECLINER. ICE CHIPS PROVIDED PER REQUEST.
[2021-10-14 00:03] VITALS: BP 124/71
[2021-10-14 03:58] VITALS: BP 118/74
--- NOTE | 2021-10-14 05:00 | NUR ---
PT CALLED SAYING "IT IS TIME FOR MY PAIN MEDICATION" SHE WAS MOANING AND GROANING AND THEN ASKING FOR HER PHONE AND SITTING ON THE SIDE OF THE BED. I ADVISED HER TO TRY TAKING THE TYLENOL DUE TO THE LENGTH OF TIME SHE HAS BEEN TAKING DILAUDID. I REMINDED HER OF OUR DISCUSSION EARLIER IN THE EVENING ABOUT SPACING OUT THE TIMING OF THE IV PAIN MEDICAITONS IN ORDER TO TRY AND BE DISCHARGED. WHEN ASKED WHERE HER PAIN IS SHE REPLIED ALL DOWN THERE POINTING TO HER LOWER ABD AND GROIN AREA. I TALKED WITH THE PT ABOUT NEEDING TO GET INTO THE SHOWER AND REALLY CLEAN WELL IN THE MARYANA AREA, SHE AGREED THAT SHE NEEDS TO, BUT DOES NOT WANT TO AT THIS TIME. I WILL MENTION TO [facility]SHIFT AIDES THAT SHE NEEDS TO BE ASSISTED IN GETTING A FULL SHOWER TO CLEAN WELL.
--- NOTE | 2021-10-14 05:28 | NUR ---
PT IS CALLING AND YELLING OUT INTO THE HALLWAY ASKING FOR STRONGER PAIN MEDICATION. MEDICATED AT THIS TIME ORDERS ALLOWED.
[2021-10-14 06:32] VITALS: BP 120/76
--- NOTE | 2021-10-14 07:30 | NUR ---
SHIFT CHANGE REPORT, PT AWAKE ALERT AND ORIENTED RESTING IN BED, C/O ABD PAIN @ 8, TELE IN PLACAE, O2 @ 3L VIA NC IN PLACE, RAEFUSED TO HAVE SHOWER STATING SHE WILL HAVE ONE WHEN SHE GETS HOME, NEEDS ADDRESSED, CALL SUAREZ IN REACH AND BED LOCKED IN LOWEST POSITION.
[2021-10-14 09:57] LABS: HEMATOCRIT 31.1 % (37.0-47.0); HEMOGLOBIN 9.5 g/dl (12.0-16.0); IMMATURE GRANULOCYTES 0.5 % (0.0-5.0); MEAN CELL VOLUME 103.3 fL CALC (80.0-100.0); MEAN CORPUSCULAR HGB 31.6 pG CALC (26.0-32.0); MEAN CORPUSCULAR HGB CONC 30.5 g/dL CAL (32.0-36.0); NEUT# 7.32 thou/uL (2.00-7.15); RED BLOOD COUNT 3.01 mill/uL (4.20-5.60)
[2021-10-14 10:28] VITALS: BP 118/76
[2021-10-14 10:43] LABS: ANION GAP 5 (6-22 (CALC)); BUN 13 mg/dL (7-17); BUN/CREATININE RATIO 15 (12-20 (CALC)); CARBON DIOXIDE 35 mmol/l (22-30); CHLORIDE 96 mmol/l (95-108); CREATININE 0.9 mg/dL (0.5-1.0); GFR > 60 ML/MIN (>=60 (CALC)); GFR FOR AFR.AMER. > 60 ML/MIN (>=60 (CALC)); POTASSIUM 3.3 mmol/l (3.5-5.1); SODIUM 133 mmol/l (137-146)
--- NOTE | 2021-10-14 12:00 | NUR ---
PT INSUPINE POSITION IN BED, C/O ABD PAIN @ 10/04 AND STATES MED NT RELIEVING PAIN, ENCOURAGED TO GET OOB AND AMBULATE, STATES SHE IS NOT READY TO GO HOME YET SHE IS HURTING TOOM MUCH AND NEEDED IV MED FOR PAIN, ADVISED NO IV MED AVAILAVLE ON ORDER SHE NEEDS TO BE WEANED OFF SINCE SHE WONT BE GETTING IT AT HOME. REQUESTED TO SPEAK TO MD AND OPERATIONS INSPECTOR NOTIFIED MD WAS AVAILABLE. ENCOURAGED TO TRY ORAL ANALGESIC AND SHE FINALLY AGREED TO TAKE IT BUT STATED IT DOES NOTHING FOR HER. SHE WAS EDUCATED ON POST-OP LINGERING PAIN AND HOW IT AFFECTS DIFFERENT PEOPLE IN DIFFERENT WAYS BUT THAT DOES NOT WARANT HER HAVING EXTENDED STAY IN HOSPITAL. SHE DECIDED TO CALL FAMILY/FRIEND FOR RIDE HOME BUT STATED NO ONE WOULD BE AVAILABLE TO TAKE HER HOME UNTIL AFTER 1999 THEY ALL UNTIL 1999. THEY ALL
--- NOTE | 2021-10-14 12:20 | NUR ---
Attempted treatment earlier this am. Pt stated she just got back in bed and refused. Pt aware that therapist would return after lunch.
[2021-10-14] MEDS ORDERED: PERCOCET 5/325M1 TAB PO (13:14)
[2021-10-14 14:34] VITALS: BP 123/78
--- NOTE | 2021-10-14 14:43 | NUR ---
Attempted treatment this pm, Bp 104/62, 02 sats 93%, HR 79. She report pain at 20/10 yet without crying noted. Pt refused treatment including exercises.
--- NOTE | 2021-10-14 19:14 | NUR ---
Discharge instructions given. Patient verbalizes understanding of same. Discharged in stable condition via Wheelchair to Home with family. All belongings sent with pt.
== END 2021-10-14 17:14 | disposition home health service (06) | DRG 336 ==
LOC: ED 06:32 → ED-I 08:27 → ED 08:43 → MS2 08:44
PROVIDERS: Family Medicine; Nurse Practitioner; Nurse Practitioner Family; Surgery; ADMIT Hospitalist; ATTEND Hospitalist
PROC: 0DNU4ZZ Release Omentum, Percutaneous Endoscopic Approach (ICD-10-PCS; principal; 2021-10-02)
PROC: 30233N1 Transfusion of Nonautologous Red Blood Cells into Peripheral Vein, Percutaneous Approach (ICD-10-PCS; 2021-10-07)
PROC: 30233N1 Transfusion of Nonautologous Red Blood Cells into Peripheral Vein, Percutaneous Approach (ICD-10-PCS; 2021-10-07)
PROC: 0HQ7XZZ Repair Abdomen Skin, External Approach (ICD-10-PCS; 2021-10-08)
PROC: 30233N1 Transfusion of Nonautologous Red Blood Cells into Peripheral Vein, Percutaneous Approach (ICD-10-PCS; 2021-10-08)
PROC: 30233N1 Transfusion of Nonautologous Red Blood Cells into Peripheral Vein, Percutaneous Approach (ICD-10-PCS; 2021-10-08)
PROC: 30233N1 Transfusion of Nonautologous Red Blood Cells into Peripheral Vein, Percutaneous Approach (ICD-10-PCS; 2021-10-08)
PROC: 02HV33Z Insertion of Infusion Device into Superior Vena Cava, Percutaneous Approach (ICD-10-PCS; 2021-10-09)
PROC: B518ZZA Fluoroscopy of Superior Vena Cava, Guidance (ICD-10-PCS; 2021-10-09)
PROC: 30243N1 Transfusion of Nonautologous Red Blood Cells into Central Vein, Percutaneous Approach (ICD-10-PCS; 2021-10-09)
PROC: 30243N1 Transfusion of Nonautologous Red Blood Cells into Central Vein, Percutaneous Approach (ICD-10-PCS; 2021-10-10)
DX: K66.8 Other specified disorders of peritoneum (principal); M96.841 Postprocedural hematoma of a musculoskeletal structure following other procedure; N39.0 Urinary tract infection, site not specified; J96.11 Chronic respiratory failure with hypoxia; Z68.44 Body mass index [BMI] 60.0-69.9, adult; N17.9 Acute kidney failure, unspecified; D50.0 Iron deficiency anemia secondary to blood loss (chronic); E87.70 Fluid overload, unspecified; K66.0 Peritoneal adhesions (postprocedural) (postinfection); E87.6 Hypokalemia; I95.9 Hypotension, unspecified; R16.0 Hepatomegaly, not elsewhere classified; E66.01 Morbid (severe) obesity due to excess calories; I10 Essential (primary) hypertension; E11.9 Type 2 diabetes mellitus without complications; E78.5 Hyperlipidemia, unspecified; K21.9 Gastro-esophageal reflux disease without esophagitis; R10.9 Unspecified abdominal pain; G89.29 Other chronic pain; F10.10 Alcohol abuse, uncomplicated; M19.90 Unspecified osteoarthritis, unspecified site; G47.33 Obstructive sleep apnea (adult) (pediatric); B96.20 Unspecified Escherichia coli [E. coli] as the cause of diseases classified elsewhere; Y83.8 Other surgical procedures as the cause of abnormal reaction of the patient, or of later complication, without mention of misadventure at the time of the procedure; Z86.711 Personal history of pulmonary embolism; Z99.81 Dependence on supplemental oxygen; Z79.01 Long term (current) use of anticoagulants; Z90.49 Acquired absence of other specified parts of digestive tract; Z20.822 Contact with and (suspected) exposure to COVID-19
CPT/HCPCS: J0131; J1650; P9016; Q9967; S0164

== ENCOUNTER 2021-10-18 13:53 | Observation (INO) | payer MEDICAID ==
[~2021-10-18] VITALS: Ht 162.6 cm; Wt 150.0 kg
[~2021-10-18 13:53] MED LIST changes: +PERCOCET 5/325M1 TAB PO
--- NOTE | 2021-10-18 16:41 | NUR ---
REPORT RECEIVED FROM KLAUS WHO GOT REPORT FROM [facility], PT JUST ARRIVED ON UNIT BY MEDICAL TRANSPORT VIA STRETCHER AND TRANSFERRED TO BED, ALERT AND ORIENTED X 3 C/O RIGHT ABD PAIN @ 10/10 AND MOANING AND GROANING, ORIENTED TO ROOM AND CALL SUAREZ, O2 @ 3L VIA NC IN PLACE, WILL CONTINUE TO MONITOR AND ADDRESS ISSUES.
[2021-10-18 17:06] VITALS: BP 117/68
[2021-10-18 18:47] LABS: MEAN CORPUSCULAR HGB 31.3 pG CALC (26.0-32.0); MEAN CORPUSCULAR HGB CONC 28.6 g/dL CAL (32.0-36.0); RED BLOOD COUNT 4.09 mill/uL (4.20-5.60); RED CELL DISTRI WIDTH 18.6 % (11.5-15.5)
[2021-10-18 18:48] LABS: HEMATOCRIT 44.8 % (37.0-47.0); HEMOGLOBIN 12.8 g/dl (12.0-16.0); MEAN CELL VOLUME 109.5 fL CALC (80.0-100.0)
[2021-10-18 19:00] VITALS: BP 114/69
--- NOTE | 2021-10-18 20:14 | NUR ---
PHYSICAL ASSESMENT COMPLETE. PT C/O DENIES PAIN AND DISCOMFORT. SCHEDULED MEDICATIONS AND PRN MEDICATION ADMINISTERED, SEE E-MAR. PT DENIES ANY NEEDS AT THIS TIME. PLAN OF CARE REVIEWED, PT DENIES QUESTIONS, VERBALIZES UNDERSTANDING. ITEMS WITHIN REACH, BED LOCKED IN LOW POSITION W/ BEDRAILS UP X2. CALL SUAREZ WITHIN REACH, AGREES TO CALL PRN.
[2021-10-19 00:18] LABS: HEMATOCRIT 34.2 % (37.0-47.0); HEMOGLOBIN 10.2 g/dl (12.0-16.0)
--- NOTE | 2021-10-19 04:10 | NUR ---
PT RESTING IN BED. C/O OF PAIN AND DISCOMFORT. PAIN MEDICATION PROVIDED. PUREWICK CATHETER PLACED PER PTS REQUEST. PT VOICES OTHER NEEDS OR COMPLAINTS AT THIS TIME. CALL LIGHT IN REACH, CONTINUE TO MONITOR.
[2021-10-19 04:40] VITALS: BP 112/68
[2021-10-19 07:15] VITALS: BP 118/64
--- NOTE | 2021-10-19 07:15 | NUR ---
PATIENT LAYING IN BED AT THIS TIME. PATIENT IS NPO AT THIS TIME. PATIENT PUBLIC RELATIONS SALES MARKETING DONE AT THIST TIME. PURWICK IN PLACE PUBLIC RELATIONS SALES MARKETING DONE AT THIS TIME SEE INTERVENTIONS. PATIENT ALERT AND ORIENTED AT THIS TIME PATIENT ENCOURAGED TO GET UP WILL CONTINUE TO MONTIOR.
--- NOTE | 2021-10-19 12:05 | NUR ---
PATIENT GIVEN 1MG OF IV DILAUDID AT THIS TIME TIME FOR C/O PAIN "ALL OVER" PER PATIENT. SIDERAILS ARE UP CALL LIGHT WITHIN REACH WILL CONTINUE TO MONITOR.
[2021-10-19 12:07] LABS: HEMATOCRIT 33.1 % (37.0-47.0); HEMOGLOBIN 9.9 g/dl (12.0-16.0)
--- NOTE | 2021-10-19 15:26 | NUR ---
PATIENT LAYING IN BED AT THIS TIME WITH EYES CLOSED. RESPIRATIONS EASY AND UNLABORED AT THIS TIME. SIDERAILS ARE UP CALL LIGHT IS WIHTIN REACH. WILL CONTINUE TO MONITOR.
[2021-10-19 16:38] VITALS: BP 125/73
--- NOTE | 2021-10-19 16:52 | NUR ---
PATIENT GIVEN 1MG OF IV DILUDID AT THIS TIME FOR PAIN LEVEL OF 5 OUT OF PAIN SCALE 0-10 FOR GENERALIZED PAIN. IV RESTARTED AT THIS TIME DUE TO DISLODGED IV SEE NOTES
[2021-10-19 18:25] LABS: HEMATOCRIT 32.4 % (37.0-47.0); HEMOGLOBIN 9.6 g/dl (12.0-16.0)
[2021-10-19 19:00] VITALS: BP 104/65
--- NOTE | 2021-10-19 19:15 | NUR ---
PATIENT RESTING IN BED QUIETLY. ALERT. ABLE TO MAKE NEEDS KNOWN. ASSESSMENT COMPLETE. NO SIGNS OF DISTRESS. CALL LIGHT AND BELONGINGS REMAIN IN REACH.
--- NOTE | 2021-10-20 00:50 | NUR ---
PATIENT ALERT. NO DISTRESS NOTED. COMPLAINTS OF PAIN. WILL GIVE PRN PAIN MEDICATION ORDERED. MOUTH SWABS PROVIDED TO PATIENT TO MOISTEN MOUTH. CALL LIGHT AND BELONGINGS REMAIN IN REACH.
[2021-10-20 01:02] LABS: HEMATOCRIT 31.2 % (37.0-47.0); HEMOGLOBIN 9.4 g/dl (12.0-16.0)
[2021-10-20 04:00] VITALS: BP 103/59
--- NOTE | 2021-10-20 04:15 | NUR ---
PATIENT RESTING IN BED. NO SIGNS OF DISTRESS NOTED. REFUSED TO LET HUMAN RESOURCES TRAINER CHECK AND CHANGE HER. CALL LIGHT AND BELONGINGS WITHIN REACH.
[2021-10-20 06:12] LABS: HEMATOCRIT 31.9 % (37.0-47.0); HEMOGLOBIN 9.4 g/dl (12.0-16.0)
[2021-10-20 08:30] VITALS: BP 97/65
--- NOTE | 2021-10-20 08:36 | NUR ---
SHIFT CHANGE REPORT, PT AWAKE ALERT AND ORIENTED, C/O RIGHT SIDE/ABD PAIN @ 8/10 AND REQUESTING PAIN MED, ADVISED IT WAS NOT TIME FOR MED YET BUT RN WILL ADDRESS NEEDS IN TIMELY MANNER, O2 @ 3L VIA NC IN PLACE, PLUREWICK IN PLACE WITH YONG URINE, CALL SUAREZ IN REACH AND BED LOCKED IN LOWEST POSITION.
--- NOTE | 2021-10-20 13:27 | NUR ---
ASISTED TO BSC AT THIS TIME, CALL SUAREZ IN REACH.
[2021-10-20 15:00] VITALS: BP 106/73
--- NOTE | 2021-10-20 16:00 | NUR ---
RESTING IN BED, DR ARRIETA ROUNDED AND GAVE ORDERS TO EDITA PT, SHE IS EXCITED AND REQUESTING DRINK, ALL NEEDS ADDRESSED, WILL CONTINUE TO MONITOR.
[2021-10-20 18:56] VITALS: BP 114/71
--- NOTE | 2021-10-20 20:19 | NUR ---
FOUND PATIENT RESTING IN BED, AWAKE, WATCHING TV, ALERT AND ORIENTED X4, C/O PAIN TO ABDOMEN LOWER QUAD. NO S/S DISTRESS NOTED, LAST PAIN ADMINISTERED WAS AT 1800, EDDUCATED ABOUT PAIN MEDICATION TIMES AND SCHEDULED, VOICES UNDERSTANDING, PROVIDED FRESH WATER, BSC AT REACH, CALL SUAREZ IS WITHIN REACH, ENCOURAGED TO CALL IF NEEDED, VOICES UNDERSTANDING. WILL FOLLOW UP WITH HOURLY ROUNDINGS.
--- NOTE | 2021-10-20 22:10 | NUR ---
c/o pain to left lower quad, medicated with dilaudid iv per Md orders, will follow up with reassessment, call pathak at reach.
--- NOTE | 2021-10-21 01:42 | NUR ---
PATIENT IS RESTING IN BED WITH EYES CLOSED, NO PAIN OR NEEDS REPORTED AT THIS TIME, CALL SUAREZ AT REACH.
--- NOTE | 2021-10-21 03:33 | NUR ---
PT C/O PAIN TO ENTIRE ABDOMEN, RATES IT AT 10/10, MEDICATED WITH IV DILAUDID PER EMAR, WILL FOLLOW UP WITH REASSESSMENT, CALL SUAREZ AT REACH. FOUND PATIENT SHIVERING, WARM BLANKET PROVIDED. PATIENT GOT UP TO BSC, VOIDED ONLY, STATES "MY PAIN EXACERBATED AFTER I GOT UP TO THE BSC."
[2021-10-21 05:34] VITALS: BP 118/68
--- NOTE | 2021-10-21 06:23 | NUR ---
PATIENT IS RESTING IN BED WITH EYES CLOSED, NO NEEDS VOICED AT THIS TIME, CALL SUAREZ AT REACH.
--- NOTE | 2021-10-21 07:30 | NUR ---
RECIEVED REPORT FROM NABILA RAI
--- NOTE | 2021-10-21 07:32 | NUR ---
REPORT GIVEN TO DAYSHIFT NURSE VIA SBAR FORMAT, PATIENT IS STABLE.
[2021-10-21 08:59] VITALS: BP 131/76
--- NOTE | 2021-10-21 08:59 | NUR ---
PT RESTING IN SEMI FOWLERS. PT IS A/O X3. ASSESSMENT AND VITALS COMPLETED. BP 131/76, HR 74, O2 95% ON 3L NC. RESPIRATIONS ARE SHALLOW. LUNG SOUNDS ARE DIMINISHED. BOWEL SOUNDS ARE ACTIVE, LBM 10/19/21. HEART RHYTHM NORMAL. #22G LW FLUSHED, SITE APPEARS HEALTHY AND PATENT. SKIN INTACT. PT COMPLAINS OF 20/10 ABD PAIN. PT MEDICATED WITH DILAUDID. PULSES STONG. PT DENIES OF ANY ADDITIONAL NEEDS AT THIS TIME. ALL SAFTEY PRECAUTIONS ARE IN PLACE WITH CALL LIGHT IN REACH. WILL CONTINUE TO MONITOR.
--- NOTE | 2021-10-21 09:10 | NUR ---
DR HINOJOSA AND MARCELINO,ANANT AT BEDSIDE
[2021-10-21 09:36] LABS: HEMATOCRIT 34.1 % (37.0-47.0); HEMOGLOBIN 10.2 g/dl (12.0-16.0); MEAN CORPUSCULAR HGB 30.8 pG CALC (26.0-32.0); MEAN CORPUSCULAR HGB CONC 29.9 g/dL CAL (32.0-36.0); RED BLOOD COUNT 3.31 mill/uL (4.20-5.60); RED CELL DISTRI WIDTH 18.5 % (11.5-15.5)
[2021-10-21] MEDS ORDERED: HYDROCO/APAP1 TA9 PO (10:44)
--- NOTE | 2021-10-21 12:15 | NUR ---
PT SLEEPING IN SEMI FOWLERS POSITION. RESPIRATIONS ARE EVEN AND UNLABORED ON 3L NC. #22G LW REMAINS IN PLACE. NO SIGNS OF ANY PAINS OR DISCOMFORTS AT THIS TIME. ALL SAFETY PRECAUTIONS ARE IN PLACE WITH CALL LIGHT IN REACH. WILL CONTINUE TO MONITOR.
--- NOTE | 2021-10-21 15:23 | NUR ---
Attempted evaluation with patient twice today at 11AM and 1:30PM but patient refused physical therapy on both occasions. Patient additionally would not answer questions asked of her. Will attempt to complete evaluation tomorrow.
--- NOTE | 2021-10-21 15:50 | NUR ---
PT RESTING IN SEMI FOWLERS POSITION ON CELL PHONE. RESPIRATIONS ARE EVEN AND UNLABORED WITH NO DISTRESS NOTED. #22G LW REMAINS IN PLACE. PT DENIES OF ANY NEEDS AT THIS TIME. ALL SAFETY PRECAUTIONS ARE IN PLACE WITH CALL LIGHT IN REACH.
[2021-10-21 16:18] VITALS: BP 102/70
--- NOTE | 2021-10-21 17:52 | NUR ---
PT INFORMED OF DC. PT STATES SHE IS UNABLE TO GET INTO HER HOUSE DUE TO HER BROTHER BEING OUT OF TOWN. PT STATES BROTHER IS IN [place]. PT UNABLE TO REACH BROTHER BY PHONE. [facility] OFFICE CALLED, SOW FARM TECHNICIAN INFORMED THEY UNABLE TO GET HER INTO THE HOUSE. SUPERVISIOR INFORMED, PT TO STAY UNTIL MORNING. PT INFORMED OF STAYING UNTIL MORNING AND NO PAIN MEDICATION DUE TO ORDER BEING DC. PT STATES SHE IS TRYING TO GET A RIDE.
--- NOTE | 2021-10-21 18:35 | NUR ---
FRIEND HERE TO PU PT. NO HOME O2. PT STATES O2 IS IN HOUSE SHE CANT GET INTO. PT STATES SHES NOT STAYING W/O PAIN MEDICTION. DR ARRIETA CONTACT. ORDERS FOR HYDROCODONE 5 OBATINED, FAXED TO [facility]. PT INFORMED PAIN MEDICATION WOULD BE ORDERS AND COULD STAY UNTIL MORNING WHEN BROTHER PICKS UP PT.
[2021-10-21 19:00] VITALS: BP 137/80
--- NOTE | 2021-10-21 19:20 | NUR ---
PATIENT ALERT AND ORIENTED. ABLE TO MAKE NEEDS KNOWN. ASSESSMENT COMPLETE. INCONTINENT OF BOWEL AND BLADDER. #22 IV SITE TO LEFT WRIST FLUSHED AND PATENT. CALL LIGHT AND BELONGINGS REMAIN IN REACH.
--- NOTE | 2021-10-21 20:04 | NUR ---
WRITTER ASKED ABOUT CODEINE ALLERGY. PT DENIES ANY ALLERGIES. PT STATES SHE HAS NKDA.
--- NOTE | 2021-10-22 00:40 | NUR ---
PATIENT RESTING IN BED. NO COMPLAINTS VOICED AT THIS TIME. PATIENT IS FREQUENTLY REDIRECTED ON NEEDING TO AMBULATE. CALL LIGHT AND BELONGINGS REMAIN IN REACH.
--- NOTE | 2021-10-22 04:25 | NUR ---
PATIENT RESTING IN BED QUIETLY. NO SIGNS OF PAIN OR DISTRESS NOTED AT THIS TIME. CALL LIGHT AND BELONGINGS REMAIN IN REACH.
[2021-10-22 04:30] VITALS: BP 111/75
--- NOTE | 2021-10-22 07:00 | NUR ---
SHIFT CHANGE REPORT, PT AWAKE ALERT AND ORIENTED RESTING IN BED, C/O GENERALISED PAIN @ 12/10, O2 @ 3L IN PLACE VIA NC, PUREWICK CATHETER IN PLACE WITH YONG URINE, CALL SUAREZ IN REACH AND BED LOCKED IN LOWEST POSITION.
[2021-10-22 08:36] VITALS: BP 114/79
[2021-10-22 08:39] VITALS: BP 114/79
--- NOTE | 2021-10-22 09:55 | NUR ---
FRIEND NAME SHERRY CALLED REPORTING PT WANTS TO COME BACK TO HER HOUSE AND SHE IS OVER 65 YRS OLD AND NOT ABLE TO CARE FOR THIS PT AND PT ALSO HAS FAMILY HERE WHO SHOULD BE ABLE TO ASSIST HER. ON SPEAKING WITH PT SHE STATED NO HEALTH UNIT LEADER WILL COME TO HER ENVIRONMENT TO GIVE HER CARE SHE HAD HOME HEALTH ORDERED ON HER PREVIOUS RECENT DISCHARGE AND NO ONE SHOWED UP. SHE ALSO REPORTED HER CLOSE NEIGHBORS SMOKE A LOT AND SHE USES OXYGEN AND IS INHALING THEIR SMOKE. SHE WAS ADVISED THE HOSPITAL IS UNABLE TO ADDRESS THESE SOCIAL CONDITIONS BUT NURSE WILL ASK CM TO SPEAK WITH HER.
--- NOTE | 2021-10-22 12:16 | NUR ---
SITTING UP IN RECLINER AT THIS TIME AFTER PHSICAL THERAPIST EVALUATED AND TREATED, STILL C/O RIGHT ABD PAIN, REPORTS SHE IS AWAITING SOMEONE TO CALL HER BACK AND TELL HER WHAT TIME SHE WII BE PICKED UP, CALL SUAREZ IN REACH.
--- NOTE | 2021-10-22 13:00 | NUR ---
Discharge instructions given. Patient verbalizes understanding of same. Discharged in stable condition via Wheelchair to Home with friend. All belongings sent with pt.
== END 2021-10-22 12:53 | disposition home or self-care (01) ==
LOC: MSOP 13:53 → EDSTATUS 14:06 → MS2 16:30
PROVIDERS: Nurse Practitioner; ADMIT Surgery; ATTEND Surgery
DX: M96.841 Postprocedural hematoma of a musculoskeletal structure following other procedure (principal); I10 Essential (primary) hypertension; I48.91 Unspecified atrial fibrillation; E78.5 Hyperlipidemia, unspecified; R10.9 Unspecified abdominal pain; G89.29 Other chronic pain; E66.01 Morbid (severe) obesity due to excess calories; Z68.43 Body mass index [BMI] 50.0-59.9, adult; K21.9 Gastro-esophageal reflux disease without esophagitis; G47.33 Obstructive sleep apnea (adult) (pediatric); Y83.8 Other surgical procedures as the cause of abnormal reaction of the patient, or of later complication, without mention of misadventure at the time of the procedure; Z86.711 Personal history of pulmonary embolism; Z79.01 Long term (current) use of anticoagulants
CPT/HCPCS: G0378; G0379

== ENCOUNTER 2021-10-23 07:12 | Emergency (ER) | payer MEDICAID ==
[~2021-10-23] VITALS: Ht 162.6 cm; Wt 160.0 kg
[2021-10-23 08:58] LABS: HEMATOCRIT 35.5 % (37.0-47.0); HEMOGLOBIN 10.3 g/dl (12.0-16.0); MEAN CELL VOLUME 106.3 fL CALC (80.0-100.0); MEAN CORPUSCULAR HGB 30.8 pG CALC (26.0-32.0); NEUT# 5.09 thou/uL (2.00-7.15); RED BLOOD COUNT 3.34 mill/uL (4.20-5.60); RED CELL DISTRI WIDTH 18.4 % (11.5-15.5)
[2021-10-23 09:11] LABS: ALKALINE PHOSPHATASE 86 u/l (38-126); ANION GAP 12 (6-22 (CALC)); BILIRUBIN, TOTAL 3.7 mg/dL (0.0-1.4); BUN 16 mg/dL (7-17); BUN/CREATININE RATIO 18 (12-20 (CALC)); CARBON DIOXIDE 29 mmol/l (22-30); CHLORIDE 101 mmol/l (95-108); CREATININE 0.9 mg/dL (0.5-1.0); GFR > 60 ML/MIN (>=60 (CALC)); GFR FOR AFR.AMER. > 60 ML/MIN (>=60 (CALC)); LIPASE 376 u/l (23-300); POTASSIUM 3.1 mmol/l (3.5-5.1); SGOT/AST 69 u/l (14-36); SODIUM 138 mmol/l (137-146)
[2021-10-23 09:15] LABS: ACT PARTIAL THROMBO TIME 25.8 SECONDS (20.0-32.5); INTERNATIONAL NORMALIZED RATIO 1.1 RATIO (0.7-1.3); PROTHROMBIN TIME 11.8 SECONDS (9.0-12.5)
[2021-10-23 09:16] LABS: ALBUMIN 3.5 g/dL (3.2-5.0); TOTAL PROTEIN 9.3 g/dL (6.3-8.2)
[2021-10-23 16:10] VITALS: BP 116/59
== END 2021-10-23 16:10 | disposition short-term general hospital (02) ==
LOC: ED 07:12
DX: K83.8 Other specified diseases of biliary tract (principal); E80.6 Other disorders of bilirubin metabolism; I10 Essential (primary) hypertension; E78.5 Hyperlipidemia, unspecified; K21.9 Gastro-esophageal reflux disease without esophagitis; E66.01 Morbid (severe) obesity due to excess calories; Z68.44 Body mass index [BMI] 60.0-69.9, adult; Z86.711 Personal history of pulmonary embolism; Z99.81 Dependence on supplemental oxygen; Z79.01 Long term (current) use of anticoagulants

== ENCOUNTER 2021-12-03 11:56 | Observation (INO) | payer MEDICAID ==
[~2021-12-03] VITALS: Ht 162.6 cm; Wt 134.0 kg
--- NOTE | 2021-12-03 11:59 | NUR ---
PATIENT TO ROOM VIA WHEELCHIAR. PATIENT STATES SHE WAS ONLY SOB BECAUSE SHE IS NOT WEARING HER O2. SHE WAS PLACED ON 3L NC.
--- NOTE | 2021-12-03 13:00 | NUR ---
PT ASSISTED UP TO BSC, PT ABLE TO PROVIDE URINE SAMPLE. URINE COLLECTED AND TO LAB. PT ASSISTED BACK TO BED FOR LAB DRAW. PT STABLE.
[2021-12-03 13:11] LABS: URINE BILIRUBIN - DIPSTICK NEGATIVE (NEGATIVE); URINE BLOOD DIPSTICK LARGE (NEGATIVE); URINE COLOR YELLOW; URINE GLUCOSE - DIPSTICK NEGATIVE (NEGATIVE); URINE KETONE NEGATIVE (NEGATIVE); URINE PROTEIN - DIPSTICK NEGATIVE (NEG-TRACE); URINE SPECIFIC GRAVITY 1.015
[2021-12-03 13:15] LABS: HEMATOCRIT 37.8 % (37.0-47.0); HEMOGLOBIN 11.4 g/dl (12.0-16.0); IMMATURE GRANULOCYTES 0.3 % (0.0-5.0); MEAN CELL VOLUME 104.7 fL CALC (80.0-100.0); MEAN CORPUSCULAR HGB 31.6 pG CALC (26.0-32.0); MEAN CORPUSCULAR HGB CONC 30.2 g/dL CAL (32.0-36.0); NEUT# 4.58 thou/uL (2.00-7.15); RED BLOOD COUNT 3.61 mill/uL (4.20-5.60); RED CELL DISTRI WIDTH 16.7 % (11.5-15.5)
[2021-12-03 13:18] LABS: URINE LEUK ESTERASE MODERATE (NEGATIVE); URINE NITRITE - DIPSTICK POSITIVE (Negative)
[2021-12-03 13:20] LABS: URINE BACTERIA MANY hpf; URINE EPITHELIAL CELLS MODERATE EPI/hpf (0-FEW); URINE RBC 25-50 RBC/hpf (0-5)
[2021-12-03 13:31] LABS: ALKALINE PHOSPHATASE 105 u/l (38-126); ANION GAP 9 (6-22 (CALC)); BILIRUBIN, TOTAL 1.6 mg/dL (0.0-1.4); BUN 7 mg/dL (7-17); BUN/CREATININE RATIO 8 (12-20 (CALC)); CARBON DIOXIDE 33 mmol/l (22-30); CHLORIDE 97 mmol/l (95-108); CREATININE 0.8 mg/dL (0.5-1.0); GFR > 60 ML/MIN (>=60 (CALC)); GFR FOR AFR.AMER. > 60 ML/MIN (>=60 (CALC)); LIPASE 47 u/l (23-300); POTASSIUM 2.9 mmol/l (3.5-5.1); SGOT/AST 37 u/l (14-36); SODIUM 136 mmol/l (137-146); TOTAL PROTEIN 7.4 g/dL (6.3-8.2)
[2021-12-03 13:32] LABS: ALBUMIN 2.6 g/dL (3.2-5.0)
--- NOTE | 2021-12-03 14:00 | NUR ---
PT RESTING ON ED BED WITH LIGHTS DIMMED FOR COMFORT. PT STABLE AT THIS TIME. WILL CONTINUE TO MONITOR.
--- NOTE | 2021-12-03 14:25 | NUR ---
PT REPORTS PAIN WORSENING AND RATES AT 07/05. DR KRAMER NOTIFIED AND ORDERS OBTAINED.
--- NOTE | 2021-12-03 15:07 | NUR ---
PT REPORTS PAIN IMPROVED AND RATES AT 7/10, PT APPEARS MORE COMFORTABLE. IV MEDICATIONS INFUSING PER ORDER. PT STABLE AT THIS TIME. WILL CONTINUE TO MONITOR.
--- NOTE | 2021-12-03 16:05 | NUR ---
PT RESTING ON ED BED, RESTING WITH EYES CLOSED. IV MEDICATION INFUSING. WILL CONTINUE TO MONITOR.
--- NOTE | 2021-12-03 17:07 | NUR ---
HOSPITALIST IN TO SEE PT
--- NOTE | 2021-12-03 17:31 | NUR ---
SBAR REPORT CALLED TO MED/OFFICE MACHINE SERVICE SUPERVISOR.
--- NOTE | 2021-12-03 17:48 | NUR ---
PT TAKEN TO MED/SURG VIA STRETCHER WITH TELE IN PLACE. PT'S BELONGINGS AND PAPERWORK HANDED OFF TO NABILA HENRIQUEZ. PT IN STABLE CONDITION AT TIME OF ADMISSION.
[2021-12-03 17:51] VITALS: BP 119/71
[2021-12-03 17:57] VITALS: BP 119/71
--- NOTE | 2021-12-03 18:15 | NUR ---
RECEIVE REPORT FROM ED NURSE CATHRYN DAHL. PATIENT ALERT AND ORIENTED X3. REPORT PAIN AT THIS TIME. PATIENT RECEIVE PAIN MEDICATIONS IN ED. COMPLETE ADDMISSION PROCESE. EDUCATED PATIENT ABOUT MEDICATIONS, NURSIN AND CLINICAL PLAN. PATIENT REFER UNDERSTAND.
[2021-12-03 19:00] VITALS: BP 98/56
--- NOTE | 2021-12-03 19:00 | NUR ---
RECIEVED REPORT FROM NABILA VALLECILLO
--- NOTE | 2021-12-03 20:32 | NUR ---
PT RESTING IN SEMI FOWLERS POSITION. PT IS A/OX3. ASSESSMENT COMPLETED. RESPIRATIONS EVEN AND UNLABORED. LUNG SOUNDS CLEAR. HEART RHYTHM NORMAL WITH TELE IN PLACE, SR PER ER MONITORING. BOWEL SOUNDS ACTIVE. #20G RAC FLUSHED, SITE APPEARS HEALTHY AND PATENT. SKIN INTACT. PT COMPLAINS OF 9/10 LEFT LOWER BACK PAIN, PT TO BE MEDICATED PER EMAR.PT DENIES OF ANY ADDITIONAL NEEDS AT THIS TIME. ALL SAFTEY PRECAUTIONS ARE IN PLACE WITH CALL LIGHT IN REACH. WILL CONTINUE TO MONITOR.
[2021-12-04] VITALS: BP 118/63
--- NOTE | 2021-12-04 00:09 | NUR ---
PT SLEEPING IN LOW FOWLERS POSITION. REPSIRATIONS EVEN AND UNLABORED ON 3L NC. TELE MONITORING IN PLACE. NO SIGNS OF ANY PAINS OR DISCOMFORTS. ALL SAFTEY PRECAUTIONS ARE IN PLACE WITH CALL LIGHT IN REACH. WILL CONTINUE TO MONITOR.
--- NOTE | 2021-12-04 00:52 | NUR ---
PT COMPLAINS OF RIGHT LOWER BACK PAIN. TYLENOL PROVIDED. PT REFUSED. PT INFORMED OF ULTRAM NOT YET DUE. PT VERBLAIZED UNDERSTANDING AND CONTINUE TO REFUSE TYLNOL
[2021-12-04 04:00] VITALS: BP 109/57
--- NOTE | 2021-12-04 04:01 | NUR ---
PT SLEEPING IN SEMI FOWLERS POSTION. RESPIRATIONS EVEN AND UNLABORED ON 3L NC, HOME DEPENDENT. #20G RAC REMAINS IN PLACE. TELE MONITORING IN PLACE. NO SIGNS OF ANY DISTRESS AT THIS TIME. ALL SAFTEY PRECAUTIONS IN PLACE WITH CALL LIGHT IN REACH.
--- NOTE | 2021-12-04 05:20 | NUR ---
ULTARAM ADMINISTERED FOR BACK PAIN REUSLTING IN 08/04. PT TOLERATED WELL.
[2021-12-04 05:25] LABS: HEMOGLOBIN 10.3 g/dl (12.0-16.0); MEAN CORPUSCULAR HGB 31.5 pG CALC (26.0-32.0); MEAN CORPUSCULAR HGB CONC 30.3 g/dL CAL (32.0-36.0); RED BLOOD COUNT 3.27 mill/uL (4.20-5.60); RED CELL DISTRI WIDTH 16.7 % (11.5-15.5)
[2021-12-04 05:45] LABS: ANION GAP 7 (6-22 (CALC)); BUN 8 mg/dL (7-17); BUN/CREATININE RATIO 11 (12-20 (CALC)); CARBON DIOXIDE 31 mmol/l (22-30); CHLORIDE 97 mmol/l (95-108); CREATININE 0.8 mg/dL (0.5-1.0); GFR > 60 ML/MIN (>=60 (CALC)); GFR FOR AFR.AMER. > 60 ML/MIN (>=60 (CALC)); MAGNESIUM 2.2 mg/dL (1.6-2.3); SODIUM 133 mmol/l (137-146)
[2021-12-04 05:52] LABS: POTASSIUM 2.4 mmol/l (3.5-5.1)
--- NOTE | 2021-12-04 05:52 | NUR ---
INFORMED BY RR IN LAB OF POTASSIUM RESULTING IN 2.4. DR HINOJOSA INFORMED. NO NEW ORDERS OBTAINED.
[2021-12-04] MEDS ORDERED: CARAFATE1 GM PO (07:06)
--- NOTE | 2021-12-04 07:41 | NUR ---
REPORT RECEIVE FROM NATHAN. PATIENT STABLE AT THIS TIME. SLEEPING. NO OBSERVE PAIN OR DISCONFORT. PREVENTIVE ROUNDS EVERY HOURS FOR FALL PRECAUTIONS AND PATIENT SATISFACTION CARE.
[2021-12-04 08:00] VITALS: BP 11/68
[2021-12-04] MEDS ORDERED: KEFLEX500 MG PO (10:22)
[2021-12-04] MEDS ORDERED: PYRIDIUM200 MG PO (10:22)
[2021-12-04] MEDS ORDERED: TRAMADOL HCL50 MG PO (10:23)
[2021-12-04] MEDS ORDERED: KLOR-CON M2020 MEQ PO (10:28)
[2021-12-04 10:34] VITALS: BP 107/56
--- NOTE | 2021-12-04 11:54 | NUR ---
PATIENT STABLE IS DISCJHARGED. EDUCATED ABOUT MEDICATIONS AT HOME, FOLLOW UP APPOIMENTS. PATIENT REFER UNDERSTAND
== END 2021-12-04 11:38 | disposition home or self-care (01) ==
LOC: ED 11:56 → ED-I 14:27 → ED 14:47 → MS2 14:48
PROVIDERS: Family Medicine; ADMIT Hospitalist; ATTEND Hospitalist
DX: N39.0 Urinary tract infection, site not specified (principal); E87.6 Hypokalemia; M79.81 Nontraumatic hematoma of soft tissue; I10 Essential (primary) hypertension; E78.5 Hyperlipidemia, unspecified; K21.9 Gastro-esophageal reflux disease without esophagitis; M54.50 Low back pain, unspecified; G89.29 Other chronic pain; G47.33 Obstructive sleep apnea (adult) (pediatric); E66.01 Morbid (severe) obesity due to excess calories; B96.20 Unspecified Escherichia coli [E. coli] as the cause of diseases classified elsewhere; Z68.43 Body mass index [BMI] 50.0-59.9, adult; Z86.711 Personal history of pulmonary embolism; Z86.718 Personal history of other venous thrombosis and embolism; Z20.822 Contact with and (suspected) exposure to COVID-19
CPT/HCPCS: G0378; J3475; Q9967

== ENCOUNTER 2021-12-11 18:48 | Inpatient (IN) | payer MEDICAID ==
[2021-12-11] VITALS (8 sets, daily range): BP systolic 89–114; BP diastolic 62–86
[~2021-12-11] VITALS: Ht 162.6 cm; Wt 160.0 kg
[~2021-12-11 18:48] MED LIST changes: +KLOR-CON M2020 MEQ PO; +PYRIDIUM200 MG PO; +TRAMADOL HCL50 MG PO
[2021-12-11 19:34] LABS: HEMATOCRIT 39.7 % (37.0-47.0); HEMOGLOBIN 12.2 g/dl (12.0-16.0); MEAN CELL VOLUME 102.8 fL CALC (80.0-100.0); MEAN CORPUSCULAR HGB 31.6 pG CALC (26.0-32.0); MEAN CORPUSCULAR HGB CONC 30.7 g/dL CAL (32.0-36.0); NEUT# 5.97 thou/uL (2.00-7.15); RED BLOOD COUNT 3.86 mill/uL (4.20-5.60); RED CELL DISTRI WIDTH 17.8 % (11.5-15.5)
[2021-12-11 19:56] LABS: INTERNATIONAL NORMALIZED RATIO 1.3 RATIO (0.7-1.3); PROTHROMBIN TIME 13.1 SECONDS (9.0-12.5)
[2021-12-11 19:57] LABS: ALBUMIN 2.8 g/dL (3.2-5.0); ALKALINE PHOSPHATASE 102 u/l (38-126); BILIRUBIN, TOTAL 1.1 mg/dL (0.0-1.4); BUN 16 mg/dL (7-17); BUN/CREATININE RATIO 16 (12-20 (CALC)); CARBON DIOXIDE 31 mmol/l (22-30); CHLORIDE 94 mmol/l (95-108); ETHYL ALCOHOL 0 mg/dl (0-30); GFR 58 ML/MIN (>=60 (CALC)); GFR FOR AFR.AMER. > 60 ML/MIN (>=60 (CALC)); LIPASE 88 u/l (23-300); SGOT/AST 47 u/l (14-36); SODIUM 134 mmol/l (137-146)
[2021-12-11 20:00] LABS: ANION GAP 12 (6-22 (CALC)); POTASSIUM 3.1 mmol/l (3.5-5.1)
[2021-12-11] MEDS ORDERED: COZAAR50 MG PO (21:27)
[2021-12-12] VITALS: BP 94/52
[2021-12-12 04:00] VITALS: BP 107/63
[2021-12-12] MEDS ORDERED: HYDROCHLOROT25 MG PO (09:23)
[2021-12-12] MEDS ORDERED: HYDROCODONE BIT1 TA9 PO (09:24)
[2021-12-12] MEDS ORDERED: VENTOLIN HFA IN (09:25)
[2021-12-12] MEDS ORDERED: LASIX 20 MG TAB20 MG PO (09:25)
[2021-12-12 09:33] LABS: URINE BLOOD DIPSTICK LARGE (NEGATIVE); URINE GLUCOSE - DIPSTICK 100 mg/dL (NEGATIVE); URINE KETONE 15 mg/dL (NEGATIVE); URINE LEUK ESTERASE TRACE (NEGATIVE); URINE PH 7.5 (4.5-8.0); URINE PROTEIN - DIPSTICK >=300 mg/dL (NEG-TRACE); URINE SPECIFIC GRAVITY 1.015
[2021-12-12 09:34] LABS: URINE BILIRUBIN - DIPSTICK MODERATE (NEGATIVE); URINE NITRITE - DIPSTICK POSITIVE (Negative)
[2021-12-12 09:35] LABS: URINE BACTERIA FEW hpf; URINE COLOR RED; URINE EPITHELIAL CELLS MODERATE EPI/hpf (0-FEW); URINE RBC TNTC RBC/hpf (0-5)
[2021-12-12 10:23] VITALS: BP 117/76
[2021-12-12 10:32] VITALS: BP 117/76
[2021-12-12 16:03] VITALS: BP 89/57
[2021-12-12 19:00] VITALS: BP 115/62
[2021-12-13] VITALS (7 sets, daily range): BP systolic 87–102; BP diastolic 48–67
[2021-12-13 06:00] LABS: MEAN CELL VOLUME 102.9 fL CALC (80.0-100.0); MEAN CORPUSCULAR HGB 31.8 pG CALC (26.0-32.0); RED BLOOD COUNT 3.14 mill/uL (4.20-5.60); RED CELL DISTRI WIDTH 18.1 % (11.5-15.5)
[2021-12-13 06:01] LABS: HEMATOCRIT 32.3 % (37.0-47.0)
[2021-12-13 06:08] LABS: ANION GAP 10 (6-22 (CALC)); BUN 13 mg/dL (7-17); BUN/CREATININE RATIO 18 (12-20 (CALC)); CARBON DIOXIDE 29 mmol/l (22-30); CHLORIDE 98 mmol/l (95-108); CREATININE 0.7 mg/dL (0.5-1.0); GFR > 60 ML/MIN (>=60 (CALC)); GFR FOR AFR.AMER. > 60 ML/MIN (>=60 (CALC)); POTASSIUM 2.9 mmol/l (3.5-5.1); SODIUM 134 mmol/l (137-146)
[2021-12-13 16:18] LABS: HEMATOCRIT 35.5 % (37.0-47.0); HEMOGLOBIN 10.7 g/dl (12.0-16.0); IMMATURE GRANULOCYTES 0.5 % (0.0-5.0); MEAN CELL VOLUME 103.5 fL CALC (80.0-100.0); MEAN CORPUSCULAR HGB 31.2 pG CALC (26.0-32.0); MEAN CORPUSCULAR HGB CONC 30.1 g/dL CAL (32.0-36.0); NEUT# 4.57 thou/uL (2.00-7.15); RED BLOOD COUNT 3.43 mill/uL (4.20-5.60); RED CELL DISTRI WIDTH 18.2 % (11.5-15.5)
[2021-12-13 16:31] LABS: INTERNATIONAL NORMALIZED RATIO 1.2 RATIO (0.7-1.3); PROTHROMBIN TIME 12.6 SECONDS (9.0-12.5)
[2021-12-14 04:04] VITALS: BP 103/56
[2021-12-14 05:26] LABS: HEMOGLOBIN 9.8 g/dl (12.0-16.0); MEAN CELL VOLUME 103.6 fL CALC (80.0-100.0); MEAN CORPUSCULAR HGB 31.7 pG CALC (26.0-32.0); MEAN CORPUSCULAR HGB CONC 30.6 g/dL CAL (32.0-36.0); RED BLOOD COUNT 3.09 mill/uL (4.20-5.60); RED CELL DISTRI WIDTH 18.3 % (11.5-15.5)
[2021-12-14 05:49] LABS: ANION GAP 8 (6-22 (CALC)); BUN 11 mg/dL (7-17); BUN/CREATININE RATIO 15 (12-20 (CALC)); CARBON DIOXIDE 31 mmol/l (22-30); CHLORIDE 100 mmol/l (95-108); CREATININE 0.7 mg/dL (0.5-1.0); GFR > 60 ML/MIN (>=60 (CALC)); GFR FOR AFR.AMER. > 60 ML/MIN (>=60 (CALC)); SODIUM 135 mmol/l (137-146)
[2021-12-14 06:08] LABS: POTASSIUM 3.5 mmol/l (3.5-5.1)
[2021-12-14 09:12] VITALS: BP 114/61
[2021-12-14 11:00] VITALS: BP 81/53
[2021-12-14 16:18] VITALS: BP 100/64
[2021-12-14 20:00] VITALS: BP 105/64
[2021-12-15] VITALS: BP 110/61
[2021-12-15 04:00] VITALS: BP 101/66
[2021-12-15 05:34] LABS: HEMATOCRIT 32.4 % (37.0-47.0); HEMOGLOBIN 9.7 g/dl (12.0-16.0); MEAN CELL VOLUME 104.2 fL CALC (80.0-100.0); MEAN CORPUSCULAR HGB 31.2 pG CALC (26.0-32.0); MEAN CORPUSCULAR HGB CONC 29.9 g/dL CAL (32.0-36.0); RED BLOOD COUNT 3.11 mill/uL (4.20-5.60); RED CELL DISTRI WIDTH 18.5 % (11.5-15.5)
[2021-12-15 06:01] LABS: ANION GAP 6 (6-22 (CALC)); BUN 10 mg/dL (7-17); BUN/CREATININE RATIO 14 (12-20 (CALC)); CARBON DIOXIDE 33 mmol/l (22-30); CHLORIDE 100 mmol/l (95-108); CREATININE 0.7 mg/dL (0.5-1.0); GFR > 60 ML/MIN (>=60 (CALC)); GFR FOR AFR.AMER. > 60 ML/MIN (>=60 (CALC)); POTASSIUM 3.9 mmol/l (3.5-5.1); SODIUM 135 mmol/l (137-146)
[2021-12-15 11:44] VITALS: BP 103/67
[2021-12-15 15:15] VITALS: BP 111/74
[2021-12-15 19:00] VITALS: BP 111/65
[2021-12-16 00:29] VITALS: BP 105/65
[2021-12-16 05:07] VITALS: BP 123/70
[2021-12-16 05:40] LABS: HEMATOCRIT 33.6 % (37.0-47.0); HEMOGLOBIN 10.1 g/dl (12.0-16.0); MEAN CELL VOLUME 103.7 fL CALC (80.0-100.0); MEAN CORPUSCULAR HGB 31.2 pG CALC (26.0-32.0); MEAN CORPUSCULAR HGB CONC 30.1 g/dL CAL (32.0-36.0); RED BLOOD COUNT 3.24 mill/uL (4.20-5.60); RED CELL DISTRI WIDTH 18.1 % (11.5-15.5)
[2021-12-16 06:16] LABS: BUN 10 mg/dL (7-17); BUN/CREATININE RATIO 14 (12-20 (CALC)); CARBON DIOXIDE 29 mmol/l (22-30); CHLORIDE 102 mmol/l (95-108); CREATININE 0.7 mg/dL (0.5-1.0); GFR > 60 ML/MIN (>=60 (CALC)); GFR FOR AFR.AMER. > 60 ML/MIN (>=60 (CALC)); MAGNESIUM 1.9 mg/dL (1.6-2.3); SODIUM 134 mmol/l (137-146)
[2021-12-16 06:18] LABS: ANION GAP 7 (6-22 (CALC)); POTASSIUM 4.2 mmol/l (3.5-5.1)
[2021-12-16 08:27] VITALS: BP 109/71
[2021-12-16 10:40] VITALS: BP 101/70
[2021-12-16 15:40] VITALS: BP 105/74
[2021-12-16 19:28] VITALS: BP 124/77
[2021-12-17] VITALS: BP 90/60
[2021-12-17 04:00] VITALS: BP 98/54
[2021-12-17 06:05] LABS: HEMATOCRIT 35.1 % (37.0-47.0); HEMOGLOBIN 10.6 g/dl (12.0-16.0); MEAN CELL VOLUME 104.5 fL CALC (80.0-100.0); MEAN CORPUSCULAR HGB 31.5 pG CALC (26.0-32.0); MEAN CORPUSCULAR HGB CONC 30.2 g/dL CAL (32.0-36.0); RED BLOOD COUNT 3.36 mill/uL (4.20-5.60); RED CELL DISTRI WIDTH 18.1 % (11.5-15.5)
[2021-12-17 06:24] LABS: ANION GAP 9 (6-22 (CALC)); BUN 10 mg/dL (7-17); BUN/CREATININE RATIO 14 (12-20 (CALC)); CARBON DIOXIDE 28 mmol/l (22-30); CHLORIDE 104 mmol/l (95-108); CREATININE 0.7 mg/dL (0.5-1.0); GFR > 60 ML/MIN (>=60 (CALC)); GFR FOR AFR.AMER. > 60 ML/MIN (>=60 (CALC)); POTASSIUM 4.4 mmol/l (3.5-5.1); SODIUM 137 mmol/l (137-146)
[2021-12-17 07:15] VITALS: BP 104/72
[2021-12-17 10:40] VITALS: BP 121/64
[2021-12-17 19:00] VITALS: BP 95/52
[2021-12-18] VITALS: BP 92/61
[2021-12-18 04:00] VITALS: BP 104/62
[2021-12-18 05:38] LABS: HEMATOCRIT 37.1 % (37.0-47.0); HEMOGLOBIN 11.3 g/dl (12.0-16.0); MEAN CELL VOLUME 103.6 fL CALC (80.0-100.0); MEAN CORPUSCULAR HGB 31.6 pG CALC (26.0-32.0); MEAN CORPUSCULAR HGB CONC 30.5 g/dL CAL (32.0-36.0); RED BLOOD COUNT 3.58 mill/uL (4.20-5.60)
[2021-12-18 06:05] LABS: BUN 9 mg/dL (7-17); BUN/CREATININE RATIO 12 (12-20 (CALC)); CARBON DIOXIDE 26 mmol/l (22-30); CHLORIDE 103 mmol/l (95-108); CREATININE 0.8 mg/dL (0.5-1.0); GFR > 60 ML/MIN (>=60 (CALC)); GFR FOR AFR.AMER. > 60 ML/MIN (>=60 (CALC)); SODIUM 136 mmol/l (137-146)
[2021-12-18 06:28] LABS: ANION GAP 12 (6-22 (CALC)); POTASSIUM 4.6 mmol/l (3.5-5.1)
[2021-12-18 08:03] VITALS: BP 98/63
[2021-12-18 10:58] VITALS: BP 106/63
[2021-12-18] MEDS ORDERED: ELIQUIS2.5 MG PO (13:45)
[2021-12-18 15:39] VITALS: BP 115/67
== END 2021-12-18 17:39 | disposition home or self-care (01) | DRG 193 ==
LOC: ED 18:48 → ED-I 21:15 → ED 21:34 → MS2 21:35
PROVIDERS: Nurse Practitioner; ADMIT Internal Medicine; ATTEND Hospitalist
DX: J10.00 Influenza due to other identified influenza virus with unspecified type of pneumonia (principal); J96.21 Acute and chronic respiratory failure with hypoxia; K92.1 Melena; Z68.44 Body mass index [BMI] 60.0-69.9, adult; D62 Acute posthemorrhagic anemia; E87.6 Hypokalemia; I10 Essential (primary) hypertension; E66.01 Morbid (severe) obesity due to excess calories; K21.9 Gastro-esophageal reflux disease without esophagitis; G47.33 Obstructive sleep apnea (adult) (pediatric); K70.10 Alcoholic hepatitis without ascites; M79.81 Nontraumatic hematoma of soft tissue; R10.9 Unspecified abdominal pain; G89.29 Other chronic pain; Z86.711 Personal history of pulmonary embolism; Z86.718 Personal history of other venous thrombosis and embolism; Z79.01 Long term (current) use of anticoagulants; Z99.81 Dependence on supplemental oxygen; Z20.822 Contact with and (suspected) exposure to COVID-19
CPT/HCPCS: S0164

== ENCOUNTER 2021-12-20 22:01 | Emergency (ER) | payer MEDICAID ==
[~2021-12-20] VITALS: Ht 162.6 cm; Wt 136.0 kg
[~2021-12-20 22:01] MED LIST changes: +COZAAR50 MG PO; +HYDROCODONE BIT1 TA9 PO; +LASIX 20 MG TAB20 MG PO; +VENTOLIN HFA IN
[2021-12-20 22:43] LABS: URINE BLOOD DIPSTICK LARGE (NEGATIVE); URINE COLOR YELLOW; URINE GLUCOSE - DIPSTICK NEGATIVE (NEGATIVE); URINE KETONE NEGATIVE (NEGATIVE); URINE PH 6.5 (4.5-8.0); URINE PROTEIN - DIPSTICK 30 mg/dL (NEG-TRACE); URINE SPECIFIC GRAVITY 1.015; URINE UROBILINOGEN - DIPSTICK 0.2 E.U./dL (0.2)
[2021-12-20 22:45] LABS: URINE BILIRUBIN - DIPSTICK NEGATIVE (NEGATIVE)
[2021-12-20 22:46] LABS: URINE LEUK ESTERASE MODERATE (NEGATIVE); URINE NITRITE - DIPSTICK NEGATIVE (Negative)
[2021-12-20 22:47] LABS: HEMOGLOBIN 10.1 g/dl (12.0-16.0); IMMATURE GRANULOCYTES 0.5 % (0.0-5.0); MEAN CELL VOLUME 102.5 fL CALC (80.0-100.0); MEAN CORPUSCULAR HGB 31.4 pG CALC (26.0-32.0); MEAN CORPUSCULAR HGB CONC 30.6 g/dL CAL (32.0-36.0); NEUT# 7.39 thou/uL (2.00-7.15); RED BLOOD COUNT 3.22 mill/uL (4.20-5.60); RED CELL DISTRI WIDTH 17.7 % (11.5-15.5)
[2021-12-20 22:52] LABS: URINE BACTERIA FEW hpf; URINE SQUAMOUS EPITHELIAL CELL FEW EPI/hpf (0-FEW)
[2021-12-20 23:18] LABS: ALBUMIN 2.9 g/dL (3.2-5.0); ALKALINE PHOSPHATASE 98 u/l (38-126); AMYLASE 48 u/l (30-110); ANION GAP 11 (6-22 (CALC)); BILIRUBIN, TOTAL 0.8 mg/dL (0.0-1.4); BUN 9 mg/dL (7-17); BUN/CREATININE RATIO 10 (12-20 (CALC)); CARBON DIOXIDE 23 mmol/l (22-30); CHLORIDE 107 mmol/l (95-108); CPK 25 u/l (30-165); CREATININE 0.9 mg/dL (0.5-1.0); ETHYL ALCOHOL 0 mg/dl (0-30); GFR > 60 ML/MIN (>=60 (CALC)); GFR FOR AFR.AMER. > 60 ML/MIN (>=60 (CALC)); LIPASE 52 u/l (23-300); MAGNESIUM 1.8 mg/dL (1.6-2.3); POTASSIUM 3.8 mmol/l (3.5-5.1); SGOT/AST 25 u/l (14-36); SODIUM 137 mmol/l (137-146); TOTAL PROTEIN 8.4 g/dL (6.3-8.2)
[2021-12-20 23:24] LABS: MYOGLOBIN 57 ng/mL (0 - 62)
[2021-12-20 23:32] LABS: C-REACTIVE PROTEIN 18.7 mg/dL (0-0.9)
[2021-12-21] MEDS ORDERED: LORTAB5 PO (00:46)
[2021-12-21 02:25] VITALS: BP 118/62
== END 2021-12-21 02:42 | disposition home or self-care (01) ==
LOC: ED 22:01
PROVIDERS: Family Medicine
DX: M19.91 Primary osteoarthritis, unspecified site (principal); N39.0 Urinary tract infection, site not specified; R10.9 Unspecified abdominal pain; G89.29 Other chronic pain; I10 Essential (primary) hypertension; K21.9 Gastro-esophageal reflux disease without esophagitis; E66.01 Morbid (severe) obesity due to excess calories; Z86.711 Personal history of pulmonary embolism; Z86.718 Personal history of other venous thrombosis and embolism; Z68.44 Body mass index [BMI] 60.0-69.9, adult

== ENCOUNTER 2021-12-25 19:56 | Emergency (ER) | payer MEDICAID ==
[2021-12-25] VITALS (7 sets, daily range): BP systolic 107–121; BP diastolic 73–90
[~2021-12-25] VITALS: Ht 162.6 cm; Wt 123.0 kg
[~2021-12-25 19:56] MED LIST changes: +LORTAB5 PO
[2021-12-25 23:34] LABS: HEMATOCRIT 34.4 % (37.0-47.0); HEMOGLOBIN 10.4 g/dl (12.0-16.0); IMMATURE GRANULOCYTES 0.4 % (0.0-5.0); MEAN CORPUSCULAR HGB 30.2 pG CALC (26.0-32.0); MEAN CORPUSCULAR HGB CONC 30.2 g/dL CAL (32.0-36.0); NEUT# 5.19 thou/uL (2.00-7.15); RED BLOOD COUNT 3.44 mill/uL (4.20-5.60); RED CELL DISTRI WIDTH 17.3 % (11.5-15.5)
[2021-12-25 23:51] LABS: ALBUMIN 2.9 g/dL (3.2-5.0); ALKALINE PHOSPHATASE 108 u/l (38-126); AMYLASE 40 u/l (30-110); ANION GAP 13 (6-22 (CALC)); BILIRUBIN, TOTAL 1.1 mg/dL (0.0-1.4); BUN 7 mg/dL (7-17); BUN/CREATININE RATIO 9 (12-20 (CALC)); CARBON DIOXIDE 26 mmol/l (22-30); CHLORIDE 101 mmol/l (95-108); CREATININE 0.7 mg/dL (0.5-1.0); GFR > 60 ML/MIN (>=60 (CALC)); GFR FOR AFR.AMER. > 60 ML/MIN (>=60 (CALC)); LIPASE 95 u/l (23-300); POTASSIUM 3.4 mmol/l (3.5-5.1); SGOT/AST 27 u/l (14-36); SODIUM 136 mmol/l (137-146); TOTAL PROTEIN 8.4 g/dL (6.3-8.2)
[2021-12-26] VITALS (23 sets, daily range): BP systolic 103–141; BP diastolic 66–91
[2021-12-26 00:02] LABS: MYOGLOBIN 31 ng/mL (0 - 62)
[2021-12-26 00:42] LABS: URINE BILIRUBIN - DIPSTICK NEGATIVE (NEGATIVE); URINE BLOOD DIPSTICK SMALL (NEGATIVE); URINE COLOR YELLOW; URINE GLUCOSE - DIPSTICK NEGATIVE (NEGATIVE); URINE KETONE NEGATIVE (NEGATIVE); URINE SPECIFIC GRAVITY 1.015; URINE UROBILINOGEN - DIPSTICK 0.2 E.U./dL (0.2)
[2021-12-26 00:47] LABS: URINE LEUK ESTERASE SMALL (NEGATIVE); URINE NITRITE - DIPSTICK NEGATIVE (Negative)
[2021-12-26 00:48] LABS: URINE PROTEIN - DIPSTICK NEGATIVE (NEG-TRACE)
[2021-12-26 00:49] LABS: URINE BACTERIA MODERATE hpf; URINE EPITHELIAL CELLS MODERATE EPI/hpf (0-FEW)
[2021-12-26] MEDS ORDERED: TORADOL PO (06:38)
== END 2021-12-26 08:28 | disposition home or self-care (01) ==
LOC: ED 19:56
PROVIDERS: Emergency Medicine
DX: R10.84 Generalized abdominal pain (principal); I10 Essential (primary) hypertension; E78.5 Hyperlipidemia, unspecified; K21.9 Gastro-esophageal reflux disease without esophagitis; G47.30 Sleep apnea, unspecified; K70.10 Alcoholic hepatitis without ascites; E66.01 Morbid (severe) obesity due to excess calories; Z86.718 Personal history of other venous thrombosis and embolism; Z68.44 Body mass index [BMI] 60.0-69.9, adult

== ENCOUNTER 2021-12-26 20:33 | Emergency (ER) | payer MEDICAID ==
[2021-12-26] VITALS (12 sets, daily range): BP systolic 68–112; BP diastolic 37–70
[~2021-12-26] VITALS: Ht 162.6 cm; Wt 127.0 kg
[2021-12-27] VITALS (35 sets, daily range): BP systolic 77–142; BP diastolic 40–84
== END 2021-12-27 08:30 | disposition home or self-care (01) ==
LOC: ED 20:33
DX: S40.012A Contusion of left shoulder, initial encounter (principal); S90.32XA Contusion of left foot, initial encounter; S80.01XA Contusion of right knee, initial encounter; I10 Essential (primary) hypertension; E78.5 Hyperlipidemia, unspecified; K21.9 Gastro-esophageal reflux disease without esophagitis; G47.30 Sleep apnea, unspecified; E66.01 Morbid (severe) obesity due to excess calories; W01.0XXA Fall on same level from slipping, tripping and stumbling without subsequent striking against object, initial encounter; Y92.89 Other specified places as the place of occurrence of the external cause; Z86.711 Personal history of pulmonary embolism; Z86.718 Personal history of other venous thrombosis and embolism

== ENCOUNTER 2021-12-29 18:12 | Observation (INO) | payer MEDICAID ==
[~2021-12-29] VITALS: Ht 162.6 cm; Wt 136.0 kg
[2021-12-29 18:25] VITALS: BP 111/72
[2021-12-29 18:30] VITALS: BP 115/68
[2021-12-29 18:45] VITALS: BP 103/66
[2021-12-29 18:57] LABS: HEMATOCRIT 27.8 % (37.0-47.0); HEMOGLOBIN 8.7 g/dl (12.0-16.0); IMMATURE GRANULOCYTES 0.3 % (0.0-5.0); MEAN CELL VOLUME 98.9 fL CALC (80.0-100.0); MEAN CORPUSCULAR HGB CONC 31.3 g/dL CAL (32.0-36.0); NEUT# 4.45 thou/uL (2.00-7.15); RED BLOOD COUNT 2.81 mill/uL (4.20-5.60); RED CELL DISTRI WIDTH 16.9 % (11.5-15.5)
[2021-12-29 19:00] VITALS: BP 107/73
[2021-12-29 19:15] VITALS: BP 107/65
[2021-12-29 19:16] LABS: ALBUMIN 2.6 g/dL (3.2-5.0); ALKALINE PHOSPHATASE 82 u/l (38-126); AMYLASE 39 u/l (30-110); ANION GAP 9 (6-22 (CALC)); BILIRUBIN, TOTAL 1.5 mg/dL (0.0-1.4); BUN 8 mg/dL (7-17); BUN/CREATININE RATIO 11 (12-20 (CALC)); CARBON DIOXIDE 28 mmol/l (22-30); CHLORIDE 99 mmol/l (95-108); CREATININE 0.7 mg/dL (0.5-1.0); GFR > 60 ML/MIN (>=60 (CALC)); GFR FOR AFR.AMER. > 60 ML/MIN (>=60 (CALC)); LIPASE 63 u/l (23-300); SGOT/AST 32 u/l (14-36); SODIUM 133 mmol/l (137-146); TOTAL PROTEIN 7.5 g/dL (6.3-8.2)
[2021-12-29 19:18] LABS: POTASSIUM 2.5 mmol/l (3.5-5.1)
[2021-12-29 19:28] LABS: MYOGLOBIN 43 ng/mL (0 - 62)
[2021-12-29 20:33] LABS: URINE BLOOD DIPSTICK LARGE (NEGATIVE); URINE GLUCOSE - DIPSTICK 100 mg/dL (NEGATIVE); URINE KETONE NEGATIVE (NEGATIVE); URINE LEUK ESTERASE TRACE (NEGATIVE); URINE PROTEIN - DIPSTICK 30 mg/dL (NEG-TRACE); URINE SPECIFIC GRAVITY <=1.005
[2021-12-29 20:47] LABS: URINE BILIRUBIN - DIPSTICK NEGATIVE (NEGATIVE); URINE NITRITE - DIPSTICK POSITIVE (Negative)
[2021-12-29 20:48] LABS: URINE COLOR RED
[2021-12-29 20:49] LABS: URINE RBC >100 RBC/hpf (0-5); URINE SQUAMOUS EPITHELIAL CELL FEW EPI/hpf (0-FEW); URINE WBC 0-2 WBC/hpf (0-5)
[2021-12-29 22:20] VITALS: BP 90/60
[2021-12-30] VITALS (12 sets, daily range): BP systolic 98–128; BP diastolic 59–86
[2021-12-30 05:27] LABS: HEMATOCRIT 26.8 % (37.0-47.0); HEMOGLOBIN 8.4 g/dl (12.0-16.0); MEAN CELL VOLUME 98.2 fL CALC (80.0-100.0); MEAN CORPUSCULAR HGB 30.8 pG CALC (26.0-32.0); MEAN CORPUSCULAR HGB CONC 31.3 g/dL CAL (32.0-36.0); RED BLOOD COUNT 2.73 mill/uL (4.20-5.60); RED CELL DISTRI WIDTH 16.8 % (11.5-15.5)
[2021-12-30 05:52] LABS: ANION GAP 9 (6-22 (CALC)); BUN 9 mg/dL (7-17); BUN/CREATININE RATIO 14 (12-20 (CALC)); CARBON DIOXIDE 25 mmol/l (22-30); CHLORIDE 102 mmol/l (95-108); CREATININE 0.6 mg/dL (0.5-1.0); GFR > 60 ML/MIN (>=60 (CALC)); GFR FOR AFR.AMER. > 60 ML/MIN (>=60 (CALC)); MAGNESIUM 1.7 mg/dL (1.6-2.3); POTASSIUM 2.9 mmol/l (3.5-5.1); SODIUM 133 mmol/l (137-146)
[2021-12-31] VITALS (19 sets, daily range): BP systolic 101–135; BP diastolic 60–80
[2021-12-31 07:00] LABS: HEMATOCRIT 29.5 % (37.0-47.0); HEMOGLOBIN 9.2 g/dl (12.0-16.0); MEAN CORPUSCULAR HGB 31.2 pG CALC (26.0-32.0); MEAN CORPUSCULAR HGB CONC 31.2 g/dL CAL (32.0-36.0); RED BLOOD COUNT 2.95 mill/uL (4.20-5.60); RED CELL DISTRI WIDTH 17.1 % (11.5-15.5)
[2021-12-31 07:13] LABS: ANION GAP 9 (6-22 (CALC)); BUN 8 mg/dL (7-17); BUN/CREATININE RATIO 15 (12-20 (CALC)); CARBON DIOXIDE 24 mmol/l (22-30); CHLORIDE 104 mmol/l (95-108); CREATININE 0.6 mg/dL (0.5-1.0); GFR > 60 ML/MIN (>=60 (CALC)); GFR FOR AFR.AMER. > 60 ML/MIN (>=60 (CALC)); MAGNESIUM 1.9 mg/dL (1.6-2.3); POTASSIUM 3.4 mmol/l (3.5-5.1); SODIUM 133 mmol/l (137-146)
[2022-01-01] VITALS: BP 137/75
[2022-01-01 03:51] VITALS: BP 141/84
[2022-01-01 06:22] LABS: HEMATOCRIT 28.7 % (37.0-47.0); HEMOGLOBIN 8.9 g/dl (12.0-16.0); MEAN CELL VOLUME 99.7 fL CALC (80.0-100.0); MEAN CORPUSCULAR HGB 30.9 pG CALC (26.0-32.0); RED BLOOD COUNT 2.88 mill/uL (4.20-5.60); RED CELL DISTRI WIDTH 16.9 % (11.5-15.5)
[2022-01-01 06:29] LABS: ANION GAP 11 (6-22 (CALC)); BUN 9 mg/dL (7-17); BUN/CREATININE RATIO 15 (12-20 (CALC)); CARBON DIOXIDE 25 mmol/l (22-30); CHLORIDE 102 mmol/l (95-108); CREATININE 0.6 mg/dL (0.5-1.0); GFR > 60 ML/MIN (>=60 (CALC)); GFR FOR AFR.AMER. > 60 ML/MIN (>=60 (CALC)); MAGNESIUM 1.8 mg/dL (1.6-2.3); POTASSIUM 3.9 mmol/l (3.5-5.1); SODIUM 134 mmol/l (137-146)
[2022-01-01 07:45] VITALS: BP 131/80
[2022-01-01 11:00] VITALS: BP 151/89
[2022-01-01 15:19] VITALS: BP 118/70
[2022-01-01 20:28] VITALS: BP 132/73
[2022-01-02] VITALS (7 sets, daily range): BP systolic 123–140; BP diastolic 73–92
[2022-01-02 06:28] LABS: HEMATOCRIT 29.1 % (37.0-47.0); HEMOGLOBIN 9.1 g/dl (12.0-16.0); MEAN CELL VOLUME 98.3 fL CALC (80.0-100.0); MEAN CORPUSCULAR HGB 30.7 pG CALC (26.0-32.0); MEAN CORPUSCULAR HGB CONC 31.3 g/dL CAL (32.0-36.0); RED BLOOD COUNT 2.96 mill/uL (4.20-5.60)
[2022-01-02 06:54] LABS: ANION GAP 8 (6-22 (CALC)); BUN 8 mg/dL (7-17); BUN/CREATININE RATIO 13 (12-20 (CALC)); CARBON DIOXIDE 25 mmol/l (22-30); CHLORIDE 103 mmol/l (95-108); CREATININE 0.6 mg/dL (0.5-1.0); GFR > 60 ML/MIN (>=60 (CALC)); GFR FOR AFR.AMER. > 60 ML/MIN (>=60 (CALC)); MAGNESIUM 1.7 mg/dL (1.6-2.3); POTASSIUM 3.9 mmol/l (3.5-5.1); SODIUM 133 mmol/l (137-146)
[2022-01-03] VITALS (7 sets, daily range): BP systolic 126–143; BP diastolic 81–93
[2022-01-03 05:59] LABS: HEMATOCRIT 29.3 % (37.0-47.0); MEAN CELL VOLUME 98.3 fL CALC (80.0-100.0); MEAN CORPUSCULAR HGB 30.2 pG CALC (26.0-32.0); MEAN CORPUSCULAR HGB CONC 30.7 g/dL CAL (32.0-36.0); RED BLOOD COUNT 2.98 mill/uL (4.20-5.60)
[2022-01-03 06:31] LABS: ANION GAP 9 (6-22 (CALC)); BUN 7 mg/dL (7-17); BUN/CREATININE RATIO 11 (12-20 (CALC)); CARBON DIOXIDE 25 mmol/l (22-30); CHLORIDE 104 mmol/l (95-108); CREATININE 0.6 mg/dL (0.5-1.0); GFR > 60 ML/MIN (>=60 (CALC)); GFR FOR AFR.AMER. > 60 ML/MIN (>=60 (CALC)); MAGNESIUM 1.8 mg/dL (1.6-2.3); SODIUM 133 mmol/l (137-146)
[2022-01-04 03:42] VITALS: BP 131/90
[2022-01-04 05:45] LABS: ANION GAP 13 (6-22 (CALC)); BUN 7 mg/dL (7-17); BUN/CREATININE RATIO 11 (12-20 (CALC)); CARBON DIOXIDE 20 mmol/l (22-30); CHLORIDE 104 mmol/l (95-108); CREATININE 0.7 mg/dL (0.5-1.0); GFR > 60 ML/MIN (>=60 (CALC)); GFR FOR AFR.AMER. > 60 ML/MIN (>=60 (CALC)); MAGNESIUM 1.9 mg/dL (1.6-2.3); POTASSIUM 4.2 mmol/l (3.5-5.1); SODIUM 133 mmol/l (137-146)
[2022-01-04 06:13] LABS: HEMATOCRIT 29.1 % (37.0-47.0); HEMOGLOBIN 8.8 g/dl (12.0-16.0); MEAN CELL VOLUME 98.6 fL CALC (80.0-100.0); MEAN CORPUSCULAR HGB 29.8 pG CALC (26.0-32.0); MEAN CORPUSCULAR HGB CONC 30.2 g/dL CAL (32.0-36.0); RED BLOOD COUNT 2.95 mill/uL (4.20-5.60)
[2022-01-04 07:17] VITALS: BP 122/77
[2022-01-04 10:42] VITALS: BP 129/87
[2022-01-04 15:36] VITALS: BP 130/90
[2022-01-04 18:38] VITALS: BP 139/89
[2022-01-05] VITALS (7 sets, daily range): BP systolic 103–145; BP diastolic 71–91
[2022-01-06 00:16] VITALS: BP 112/75
[2022-01-06 05:29] LABS: HEMATOCRIT 28.3 % (37.0-47.0); HEMOGLOBIN 8.7 g/dl (12.0-16.0); IMMATURE GRANULOCYTES 0.7 % (0.0-5.0); MEAN CELL VOLUME 99.6 fL CALC (80.0-100.0); MEAN CORPUSCULAR HGB 30.6 pG CALC (26.0-32.0); MEAN CORPUSCULAR HGB CONC 30.7 g/dL CAL (32.0-36.0); NEUT# 4.15 thou/uL (2.00-7.15); RED BLOOD COUNT 2.84 mill/uL (4.20-5.60); RED CELL DISTRI WIDTH 17.4 % (11.5-15.5)
[2022-01-06 05:38] VITALS: BP 134/89
[2022-01-06 05:56] LABS: ALBUMIN 2.5 g/dL (3.2-5.0); ALKALINE PHOSPHATASE 106 u/l (38-126); ANION GAP 12 (6-22 (CALC)); BUN 8 mg/dL (7-17); BUN/CREATININE RATIO 11 (12-20 (CALC)); CARBON DIOXIDE 23 mmol/l (22-30); CHLORIDE 102 mmol/l (95-108); CREATININE 0.7 mg/dL (0.5-1.0); GFR > 60 ML/MIN (>=60 (CALC)); GFR FOR AFR.AMER. > 60 ML/MIN (>=60 (CALC)); POTASSIUM 3.9 mmol/l (3.5-5.1); SGOT/AST 22 u/l (14-36); SODIUM 134 mmol/l (137-146); TOTAL PROTEIN 7.4 g/dL (6.3-8.2)
[2022-01-06 05:59] LABS: BILIRUBIN, TOTAL 0.6 mg/dL (0.0-1.4)
[2022-01-06 09:14] VITALS: BP 122/80
[2022-01-06 10:28] VITALS: BP 122/80
[2022-01-06 14:10] VITALS: BP 132/90
[2022-01-06 19:00] VITALS: BP 108/77
[2022-01-07] VITALS (8 sets, daily range): BP systolic 113–130; BP diastolic 71–89
[2022-01-07 05:54] LABS: HEMATOCRIT 28.9 % (37.0-47.0); HEMOGLOBIN 8.9 g/dl (12.0-16.0); MEAN CORPUSCULAR HGB 30.8 pG CALC (26.0-32.0); MEAN CORPUSCULAR HGB CONC 30.8 g/dL CAL (32.0-36.0); RED BLOOD COUNT 2.89 mill/uL (4.20-5.60); RED CELL DISTRI WIDTH 17.4 % (11.5-15.5)
[2022-01-07 06:17] LABS: ANION GAP 12 (6-22 (CALC)); BUN 6 mg/dL (7-17); BUN/CREATININE RATIO 10 (12-20 (CALC)); CARBON DIOXIDE 25 mmol/l (22-30); CHLORIDE 102 mmol/l (95-108); CREATININE 0.7 mg/dL (0.5-1.0); GFR > 60 ML/MIN (>=60 (CALC)); GFR FOR AFR.AMER. > 60 ML/MIN (>=60 (CALC)); MAGNESIUM 1.9 mg/dL (1.6-2.3); POTASSIUM 3.9 mmol/l (3.5-5.1); SODIUM 134 mmol/l (137-146)
[2022-01-08] VITALS (8 sets, daily range): BP systolic 108–132; BP diastolic 70–87
[2022-01-08 05:25] LABS: HEMATOCRIT 27.2 % (37.0-47.0); HEMOGLOBIN 8.4 g/dl (12.0-16.0); MEAN CELL VOLUME 99.3 fL CALC (80.0-100.0); MEAN CORPUSCULAR HGB 30.7 pG CALC (26.0-32.0); MEAN CORPUSCULAR HGB CONC 30.9 g/dL CAL (32.0-36.0); RED BLOOD COUNT 2.74 mill/uL (4.20-5.60); RED CELL DISTRI WIDTH 17.3 % (11.5-15.5)
[2022-01-08 05:39] LABS: ANION GAP 11 (6-22 (CALC)); BUN 7 mg/dL (7-17); BUN/CREATININE RATIO 11 (12-20 (CALC)); CARBON DIOXIDE 24 mmol/l (22-30); CHLORIDE 103 mmol/l (95-108); CREATININE 0.7 mg/dL (0.5-1.0); GFR > 60 ML/MIN (>=60 (CALC)); GFR FOR AFR.AMER. > 60 ML/MIN (>=60 (CALC)); SODIUM 134 mmol/l (137-146)
[2022-01-09] VITALS (8 sets, daily range): BP systolic 117–145; BP diastolic 68–88
[2022-01-09 05:34] LABS: HEMATOCRIT 32.8 % (37.0-47.0); HEMOGLOBIN 9.7 g/dl (12.0-16.0); MEAN CELL VOLUME 100.9 fL CALC (80.0-100.0); MEAN CORPUSCULAR HGB 29.8 pG CALC (26.0-32.0); MEAN CORPUSCULAR HGB CONC 29.6 g/dL CAL (32.0-36.0); RED BLOOD COUNT 3.25 mill/uL (4.20-5.60); RED CELL DISTRI WIDTH 17.2 % (11.5-15.5)
[2022-01-09 05:56] LABS: ANION GAP 13 (6-22 (CALC)); BUN 7 mg/dL (7-17); BUN/CREATININE RATIO 11 (12-20 (CALC)); CARBON DIOXIDE 24 mmol/l (22-30); CHLORIDE 102 mmol/l (95-108); CREATININE 0.6 mg/dL (0.5-1.0); GFR > 60 ML/MIN (>=60 (CALC)); GFR FOR AFR.AMER. > 60 ML/MIN (>=60 (CALC)); POTASSIUM 4.3 mmol/l (3.5-5.1); SODIUM 135 mmol/l (137-146)
[2022-01-10] VITALS: BP 132/87
[2022-01-10 04:00] VITALS: BP 120/79
[2022-01-10 06:16] LABS: HEMATOCRIT 28.7 % (37.0-47.0); HEMOGLOBIN 9.1 g/dl (12.0-16.0); MEAN CELL VOLUME 99.7 fL CALC (80.0-100.0); MEAN CORPUSCULAR HGB 31.6 pG CALC (26.0-32.0); MEAN CORPUSCULAR HGB CONC 31.7 g/dL CAL (32.0-36.0); RED BLOOD COUNT 2.88 mill/uL (4.20-5.60); RED CELL DISTRI WIDTH 17.4 % (11.5-15.5)
[2022-01-10 06:50] LABS: ANION GAP 10 (6-22 (CALC)); BUN 6 mg/dL (7-17); BUN/CREATININE RATIO 11 (12-20 (CALC)); CARBON DIOXIDE 26 mmol/l (22-30); CHLORIDE 103 mmol/l (95-108); CREATININE 0.6 mg/dL (0.5-1.0); GFR > 60 ML/MIN (>=60 (CALC)); GFR FOR AFR.AMER. > 60 ML/MIN (>=60 (CALC)); SODIUM 134 mmol/l (137-146)
[2022-01-10 08:24] VITALS: BP 104/65
[2022-01-10 15:22] VITALS: BP 119/80
[2022-01-10 18:27] VITALS: BP 132/86
[2022-01-10 19:00] VITALS: BP 132/86
[2022-01-11] VITALS (10 sets, daily range): BP systolic 120–141; BP diastolic 81–92
[2022-01-11 05:26] LABS: HEMATOCRIT 28.3 % (37.0-47.0); HEMOGLOBIN 8.7 g/dl (12.0-16.0); MEAN CELL VOLUME 101.1 fL CALC (80.0-100.0); MEAN CORPUSCULAR HGB 31.1 pG CALC (26.0-32.0); MEAN CORPUSCULAR HGB CONC 30.7 g/dL CAL (32.0-36.0); RED BLOOD COUNT 2.8 mill/uL (4.20-5.60); RED CELL DISTRI WIDTH 17.3 % (11.5-15.5)
[2022-01-11 05:59] LABS: ANION GAP 12 (6-22 (CALC)); BUN 6 mg/dL (7-17); BUN/CREATININE RATIO 12 (12-20 (CALC)); CARBON DIOXIDE 25 mmol/l (22-30); CHLORIDE 101 mmol/l (95-108); CREATININE 0.6 mg/dL (0.5-1.0); GFR > 60 ML/MIN (>=60 (CALC)); GFR FOR AFR.AMER. > 60 ML/MIN (>=60 (CALC)); MAGNESIUM 1.9 mg/dL (1.6-2.3); POTASSIUM 4.3 mmol/l (3.5-5.1); SODIUM 135 mmol/l (137-146)
[2022-01-12 02:47] VITALS: BP 128/82
[2022-01-12 04:00] VITALS: BP 128/82
[2022-01-12 05:20] LABS: HEMATOCRIT 28.4 % (37.0-47.0); HEMOGLOBIN 8.8 g/dl (12.0-16.0); MEAN CELL VOLUME 99.3 fL CALC (80.0-100.0); MEAN CORPUSCULAR HGB 30.8 pG CALC (26.0-32.0); RED BLOOD COUNT 2.86 mill/uL (4.20-5.60)
[2022-01-12 05:48] LABS: BUN 6 mg/dL (7-17); BUN/CREATININE RATIO 11 (12-20 (CALC)); CARBON DIOXIDE 24 mmol/l (22-30); CHLORIDE 99 mmol/l (95-108); CREATININE 0.6 mg/dL (0.5-1.0); GFR > 60 ML/MIN (>=60 (CALC)); GFR FOR AFR.AMER. > 60 ML/MIN (>=60 (CALC)); MAGNESIUM 1.8 mg/dL (1.6-2.3); SODIUM 134 mmol/l (137-146)
[2022-01-12 05:50] LABS: ANION GAP 15 (6-22 (CALC))
[2022-01-12 07:59] VITALS: BP 150/85
[2022-01-12 12:18] VITALS: BP 123/69
[2022-01-12 16:30] VITALS: BP 130/79
[2022-01-12 19:01] VITALS: BP 142/81
[2022-01-13] VITALS: BP 148/88
[2022-01-13 04:58] VITALS: BP 150/91
[2022-01-13 05:23] LABS: HEMATOCRIT 29.5 % (37.0-47.0); MEAN CORPUSCULAR HGB 30.2 pG CALC (26.0-32.0); MEAN CORPUSCULAR HGB CONC 30.5 g/dL CAL (32.0-36.0); RED BLOOD COUNT 2.98 mill/uL (4.20-5.60)
[2022-01-13 05:44] LABS: ANION GAP 11 (6-22 (CALC)); BUN 7 mg/dL (7-17); BUN/CREATININE RATIO 12 (12-20 (CALC)); CARBON DIOXIDE 26 mmol/l (22-30); CHLORIDE 100 mmol/l (95-108); CREATININE 0.6 mg/dL (0.5-1.0); GFR > 60 ML/MIN (>=60 (CALC)); GFR FOR AFR.AMER. > 60 ML/MIN (>=60 (CALC)); MAGNESIUM 1.9 mg/dL (1.6-2.3); SODIUM 133 mmol/l (137-146)
[2022-01-13 06:50] VITALS: BP 140/87
[2022-01-13 09:33] VITALS: BP 139/92
[2022-01-13 15:06] VITALS: BP 117/76
[2022-01-13 19:00] VITALS: BP 117/84
[2022-01-14] VITALS: BP 130/85
[2022-01-14 04:00] VITALS: BP 130/92
[2022-01-14 13:59] VITALS: BP 134/83
== END 2022-01-14 17:44 ==
LOC: ED 18:12 → ED-I 20:28 → ED 20:37 → ICU 20:38 → MS2 12-31 17:11
PROVIDERS: Family Medicine; Internal Medicine; Nurse Practitioner; ADMIT Hospitalist; ATTEND Hospitalist
DX: M96.841 Postprocedural hematoma of a musculoskeletal structure following other procedure (principal); E87.6 Hypokalemia; E87.1 Hypo-osmolality and hyponatremia; N39.0 Urinary tract infection, site not specified; J96.21 Acute and chronic respiratory failure with hypoxia; E46 Unspecified protein-calorie malnutrition; L89.159 Pressure ulcer of sacral region, unspecified stage; L89.329 Pressure ulcer of left buttock, unspecified stage; I10 Essential (primary) hypertension; K21.9 Gastro-esophageal reflux disease without esophagitis; E66.2 Morbid (severe) obesity with alveolar hypoventilation; M54.9 Dorsalgia, unspecified; G89.29 Other chronic pain; R53.1 Weakness; K70.10 Alcoholic hepatitis without ascites; B96.20 Unspecified Escherichia coli [E. coli] as the cause of diseases classified elsewhere; Y83.8 Other surgical procedures as the cause of abnormal reaction of the patient, or of later complication, without mention of misadventure at the time of the procedure; Z68.44 Body mass index [BMI] 60.0-69.9, adult; Z86.718 Personal history of other venous thrombosis and embolism; Z86.711 Personal history of pulmonary embolism; Z79.01 Long term (current) use of anticoagulants; Z91.81 History of falling; Z20.822 Contact with and (suspected) exposure to COVID-19
CPT/HCPCS: G0378; J1650; Q9967; S0164